=== PATIENT | female | born 1960 | race Caucasian/White ===

== ENCOUNTER 2016-11-06 22:09 | Observation (INO) ==
--- NOTE | 2016-11-06 22:16 | Emergency Department Note ---
Disposition Clinical Impression: Weakness, Elevated troponin I level, Sepsis syndrome UTI (urinary tract infection) Qualifiers: Urinary tract infection type: acute cystitis Hematuria presence: without hematuria Qualified Code(s): N30.00 - Acute cystitis without hematuria Disposition: Admitted As Inpatient Condition: Good General Adult HPI - General Chief complaint: ED Weakness Stated complaint: low blood presure Time Seen by Provider: 11/06/16 22:12 Source: patient, family, EMS Mode of arrival: EMS Limitations: no limitations Nursing Notes Reviewed: Yes Vital Signs Reviewed: Yes - History of Present Illness HPI Narrative: Patient presents by EMS tonight because her "blood pressure dropped". She states her normal blood pressure is about 160/60 and that it "drops every now and then". When her blood pressure was checked at home is reportedly a systolic of 90 and heart rate of 21. Due to this squad was called. She denies any complaints other than she "felt tired", weak and "had no energy". She reports that she felt very fatigued and dry to stand and walk to go to the bathroom. She denies presyncopal complaints. She denies any recent change of medication or diet. She denies any recent fall or injury. She denies chest pain, palpitations or shortness of breath. She denies nausea, vomiting, diarrhea or abdominal pain. She denies any urinary complaints and states that she urinates frequently because of Lasix. She has been on her normal 3 L of oxygen. She states that she is "just feeling yucky". Onset (ago): day(s) (1) Pain Scale: 0 Consistency: constant Improves with: nothing Worsens with: movement, other (Standing and walking) Associated symptoms: Reports: malaise, weakness. Denies: confusion, chest pain , cough, diaphoresis, fever/chills, headaches, loss of appetite, nausea/vomiting , rash, seizure, shortness of breath, syncope Treatments Prior to Arrival: none - Related Data Home Medications Medication Instructions Recorded Confirmed Albuterol Sulfate [Proair Hfa] 1 puff IH DAILY 08/15/15 11/06/16 Fluticasone/Salmeterol [Advair 1 each IH DAILY 08/15/15 11/06/16 100-50 Diskus] Furosemide [Lasix] 80 mg PO DAILY 08/15/15 12/12/15 Gabapentin [Neurontin] 600 mg PO TID 08/15/15 11/06/16 Hydrocodone/Acetaminophen [Vicodin 7.5 mg PO 3-4XD PRN 08/15/15 11/06/16 Es 7.5-300 mg Tablet] Levothyroxine [Synthroid] 50 mcg PO DAILY 08/15/15 Allopurinol [Zyloprim] 300 mg PO DAILY 11/06/16 11/06/16 Cholecalciferol (Vitamin D3) 4,000 unit PO 11/06/16 [Vitamin D3] Umeclidinium Brm/Vilanterol Tr 1 cap IH DAILY 11/06/16 11/06/16 [Anoro Ellipta 62.5-25 Mcg INH] Allergies Allergy/AdvReac Type Severity Reaction Status Date / Time adhesive tape Allergy Rash Verified 11/06/16 22:19 lisinopril AdvReac Cough Verified 11/06/16 22:19 All systems ED: reviewed and negative except as stated. Past Medical History - Past Medical History Attestation: Yes The following information was validated with the patient. Source: patient, nursing notes reviewed Medical history: Reports: arthritis, CHF, COPD, DVT, pulmonary embolus, thyroid disease, other Surgical history: Reports: other (Tonsillectomy, rhinoplasty) Psychiatric history: Reports: anxiety, depression CORPORATE TRAINER history: Reports: no CORPORATE TRAINER history - Social History Smoking Status: Current every day smoker Smokeless Tobacco Status: No Alcohol use: Reports: none Drug use: Reports: none Physical Exam - General Limitations: no limitations General appearance: alert, in no apparent distress - Head Head exam: atraumatic, normocephalic, normal inspection - Eye Eye exam: Present: normal appearance, PERRL, EOMI. Absent: scleral icterus, conjunctival injection - ENT ENT exam: normal exam, normal oropharynx, mucous membranes moist - Neck Neck exam: Present: normal inspection, full ROM, trachea midline - Chest Chest inspection: Present: normal inspection, symmetric chest wall rise - Respiratory Respiratory exam: Present: normal lung sounds bilaterally, wheezes, prolonged expiratory phase. Absent: respiratory distress - Cardiovascular Cardiovascular exam: Present: regular rate, normal rhythm, tachycardia, normal heart sounds - Abdominal Exam Abdominal exam: Present: soft, Non-Tender, normal bowel sounds. Absent: tenderness, distention, guarding, rebound, rigidity - Extremities Exam Extremities exam: Present: normal inspection, full ROM, normal capillary refill , pedal edema (1-2+, chronic). Absent: tenderness, calf tenderness (Left calf and a Coban wrap) - Expanded Lower Extremity Exam Neurovascular/Tendon exam: Present: normal capillary refill. Absent: motor deficit, sensory deficit, tendon deficit Gait: not tested/not observed - Back Exam Back exam: Present: normal inspection, full ROM. Absent: tenderness, vertebral tenderness - Neurological Exam Neurological exam: Present: alert, oriented X3. Absent: motor sensory deficit - Psychiatric Psychiatric exam: Present: normal affect, normal mood - Skin Skin exam: Present: warm, dry, intact, normal color. Absent: diaphoresis, pallor Course Course Narrative: 2214: The patient's presenting heart rate is about 100 and her blood pressure is under 128/84. She is saturating around 89-92% on her 3 L. Given her history we will obtain a slight lab work, EKG and x-ray. If she is maintaining good vital signs had this evaluation is unremarkable, I believe she will be stable for discharge to home. 2229: All lab and evaluation has been discussed with the patient and Dr. Cagle. She has been started on IV fluids, IV Cipro and a baseline lactic acid and blood cultures have been ordered. Given the troponin of 0.06 this has been written for repeat admit patent. If this is increasing I will work on transfer to another facility. If this is decreasing Dr. Cagle is agreeable with continued treatment at this facility. Vital Signs Temperature 99.6 F 11/06/16 22:10 Pulse Rate 101 11/06/16 22:10 Respiratory Rate 26 11/06/16 22:10 Blood Pressure 128/84 11/06/16 22:10 O2 Sat by Pulse Oximetry 88 11/06/16 22:10 Temperature 97.9 F 11/07/16 04:54 Pulse Rate 82 11/07/16 04:54 Respiratory Rate 18 11/07/16 04:54 Blood Pressure 92/53 11/07/16 04:54 O2 Sat by Pulse Oximetry 97 11/07/16 04:54 Oxygen Delivery Oxygen Delivery Nasal Cannula Medical Decision Making - Lab Data Lab results reviewed: Yes I reviewed the patient's lab results. Result diagrams: 11/07/16 05:36 11/06/16 22:34 Lab Results 11/06/16 11/06/16 11/06/16 Range/Units 22:34 22:34 22:34 WBC 24.1 H (4.3-11.1) K/mcL RBC 5.85 H (3.82-4.97) M/mcL Hgb 16.8 H (11.5-15.4) g/dL Hct 52.1 H (35.3-44.9) % MCV 89.1 (83.0-100.0) fL MCH 28.7 (28.0-33.3) pg MCHC 32.2 (31.6-35.5) g/dL RDW 16.2 H (11.5-14.5) % Plt Count 175 (140-400) K/mcL MPV 11.6 (9.4-12.4) fL Seg Neutrophils % 71.0 % Band Neutrophils % 19.0 H (0-4) % Lymphocytes % 5.0 % Monocytes % 5.0 % Neutrophils # 21.7 H (1.6-8.9) K/mcL Lymphocytes # 1.2 (0.6-4.6) K/mcL Monocytes # 1.2 (0.0-1.3) K/mcL Toxic Granulation Present A (Not Present) Toxic Vacuolation Present A (Not Present) Dohle Bodies Present A (Not Present) Platelet Estimate Normal (Normal) Large Platelets Present A (Not Present) Anisocytosis 1+ A (Not Present) VBG Lactic Acid (0.5-2.2) mmol/L Sodium 138 (136-145) mEq/L Potassium 4.3 (3.5-4.5) mEq/L Chloride 103 (98-109) mEq/L Carbon Dioxide 21 (19-29) mEq/L BUN 16 (7-20) mg/dL Creatinine 0.94 (0.57-1.11) mg/dL Est GFR ( Amer) > 60 (> 60) Est GFR (Non-Af Amer) > 60 (> 60) BUN/Creatinine Ratio 17 (6-26) Glucose 111 H (70-99) mg/dL Calculated Osmolality 288 (280-300) Calcium 8.9 (8.6-10.8) mg/dL Troponin I 0.06 H* (0-0.03) ng/mL B-Natriuretic Peptide (0-100) pg/mL Urine Color (Yellow) Urine Clarity (Clear) Urine pH (5.0-8.0) pH Units Ur Specific [place] (1.010-1.025) Urine Protein (Neg-Trace) mg/dL Urine Glucose (UA) (Normal) mg/dL Urine Ketones (Negative) mg/dL Urine Blood (Negative) Urine Nitrite (Negative) Urine Bilirubin (Negative) Urine Urobilinogen (Normal) mg/dL Ur Leukocyte Esterase (Negative) Urine Microscopic RBC (0-3) per hpf Urine Microscopic WBC (0-3) per hpf Ur Squamous Epith Cells (None-Few) per lpf Uric Acid Crystals Amorphous Sediment (Few) Urine Bacteria (None-Few) per hpf Hyaline Casts (None-Few) per lpf Granular Casts (None Seen) per lpf Ur Culture Indicated? (NO) 11/06/16 11/06/16 11/07/16 Range/Units 22:34 22:47 00:00 WBC (4.3-11.1) K/mcL RBC (3.82-4.97) M/mcL Hgb (11.5-15.4) g/dL Hct (35.3-44.9) % MCV (83.0-100.0) fL MCH (28.0-33.3) pg MCHC (31.6-35.5) g/dL RDW (11.5-14.5) % Plt Count (140-400) K/mcL MPV (9.4-12.4) fL Seg Neutrophils % % Band Neutrophils % (0-4) % Lymphocytes % % Monocytes % % Neutrophils # (1.6-8.9) K/mcL Lymphocytes # (0.6-4.6) K/mcL Monocytes # (0.0-1.3) K/mcL Toxic Granulation (Not Present) Toxic Vacuolation (Not Present) Dohle Bodies (Not Present) Platelet Estimate (Normal) Large Platelets (Not Present) Anisocytosis (Not Present) VBG Lactic Acid 3.2 H (0.5-2.2) mmol/L Sodium (136-145) mEq/L Potassium (3.5-4.5) mEq/L Chloride (98-109) mEq/L Carbon Dioxide (19-29) mEq/L BUN (7-20) mg/dL Creatinine (0.57-1.11) mg/dL Est GFR ( Amer) (> 60) Est GFR (Non-Af Amer) (> 60) BUN/Creatinine Ratio (6-26) Glucose (70-99) mg/dL Calculated Osmolality (280-300) Calcium (8.6-10.8) mg/dL Troponin I (0-0.03) ng/mL B-Natriuretic Peptide 235 H (0-100) pg/mL Urine Color Dark Yellow (Yellow) Urine Clarity Cloudy A (Clear) Urine pH 5.0 (5.0-8.0) pH Units Ur Specific [place] 1.025 (1.010-1.025) Urine Protein 30 H (Neg-Trace) mg/dL Urine Glucose (UA) Normal (Normal) mg/dL Urine Ketones 15 H (Negative) mg/dL Urine Blood Negative (Negative) Urine Nitrite Positive A (Negative) Urine Bilirubin Moderate H (Negative) Urine Urobilinogen Normal (Normal) mg/dL Ur Leukocyte Esterase Negative (Negative) Urine Microscopic RBC 0-3 (0-3) per hpf Urine Microscopic WBC 3-5 H (0-3) per hpf Ur Squamous Epith Cells Many H (None-Few) per lpf Uric Acid Crystals Present Amorphous Sediment Moderate H (Few) Urine Bacteria Many H (None-Few) per hpf Hyaline Casts Few (None-Few) per lpf Granular Casts Few H (None Seen) per lpf Ur Culture Indicated? YES A (NO) 11/07/16 Range/Units 00:00 WBC (4.3-11.1) K/mcL RBC (3.82-4.97) M/mcL Hgb (11.5-15.4) g/dL Hct (35.3-44.9) % MCV (83.0-100.0) fL MCH (28.0-33.3) pg MCHC (31.6-35.5) g/dL RDW (11.5-14.5) % Plt Count (140-400) K/mcL MPV (9.4-12.4) fL Seg Neutrophils % % Band Neutrophils % (0-4) % Lymphocytes % % Monocytes % % Neutrophils # (1.6-8.9) K/mcL Lymphocytes # (0.6-4.6) K/mcL Monocytes # (0.0-1.3) K/mcL Toxic Granulation (Not Present) Toxic Vacuolation (Not Present) Dohle Bodies (Not Present) Platelet Estimate (Normal) Large Platelets (Not Present) Anisocytosis (Not Present) VBG Lactic Acid (0.5-2.2) mmol/L Sodium (136-145) mEq/L Potassium (3.5-4.5) mEq/L Chloride (98-109) mEq/L Carbon Dioxide (19-29) mEq/L BUN (7-20) mg/dL Creatinine (0.57-1.11) mg/dL Est GFR ( Amer) (> 60) Est GFR (Non-Af Amer) (> 60) BUN/Creatinine Ratio (6-26) Glucose (70-99) mg/dL Calculated Osmolality (280-300) Calcium (8.6-10.8) mg/dL Troponin I 0.06 H* (0-0.03) ng/mL B-Natriuretic Peptide (0-100) pg/mL Urine Color (Yellow) Urine Clarity (Clear) Urine pH (5.0-8.0) pH Units Ur Specific [place] (1.010-1.025) Urine Protein (Neg-Trace) mg/dL Urine Glucose (UA) (Normal) mg/dL Urine Ketones (Negative) mg/dL Urine Blood (Negative) Urine Nitrite (Negative) Urine Bilirubin (Negative) Urine Urobilinogen (Normal) mg/dL Ur Leukocyte Esterase (Negative) Urine Microscopic RBC (0-3) per hpf Urine Microscopic WBC (0-3) per hpf Ur Squamous Epith Cells (None-Few) per lpf Uric Acid Crystals Amorphous Sediment (Few) Urine Bacteria (None-Few) per hpf Hyaline Casts (None-Few) per lpf Granular Casts (None Seen) per lpf Ur Culture Indicated? (NO) - Radiology Data Radiology results reviewed: Yes I reviewed the patient's radiology results. Single view chest x-ray is performed. This does not demonstrate evidence for infiltrate, effusion, pneumothorax, foreign body or heart failure. The cardiac silhouette is normal. I do not see abnormality to the osseous structures of the chest. This is on my interpretation. Impressions Chest X-Ray 11/06/16 22:17 IMPRESSION: Limited exam. Perihilar patchy opacities could reflect pulmonary edema. D/ / Dameon Garnett MD / Dameon Garnett MD Interpreting Provider: Dameon Garnett MD Critical Care Time Critical Care Time: Yes Total Critical Care Time: 45 Attestation: As this patient did present with signs and symptoms of potential life- threatening illness requiring my urgent intervention, total critical care time in this patient's care has been 45 minutes, not withstanding separately reportable procedures.
[2016-11-06 22:50] LABS: Hematocrit 52.1 % (35.3-44.9); Hemoglobin 16.8 g/dL (11.5-15.4); Mean Corpuscular HGB Conc 32.2 g/dL (31.6-35.5); Mean Corpuscular Hemoglobin 28.7 pg (28.0-33.3); Mean Corpuscular Volume 89.1 fL (83.0-100.0); Mean Platelet Volume 11.6 fL (9.4-12.4); Monocytes # 1.2 K/mcL (0.0-1.3); Platelet Count 175 K/mcL (140-400); Red Blood Count 5.85 M/mcL (3.82-4.97); Red Cell Distribution Width 16.2 % (11.5-14.5)
[2016-11-06 22:55] LABS: Bilirubin,Urine Moderate (Negative); Blood,Urine Negative (Negative); Clarity,Urine Cloudy (Clear); Glucose,Urine (UA) Normal (Normal); Ketones,Urine 15 mg/dL (Negative); Leukocyte Esterase,Urine Negative (Negative); Nitrite,Urine Positive (Negative); Protein,Urine 30 mg/dL (Neg-Trace); Specific Gravity,Urine 1.025 (1.010-1.025); Urobilinogen,Urine Normal (Normal)
[2016-11-06 23:01] LABS: BUN/Creatinine Ratio 17 (6-26); Blood Urea Nitrogen 16 mg/dL (7-20); Calcium 8.9 mg/dL (8.6-10.8); Carbon Dioxide 21 mEq/L (19-29); Chloride 103 mEq/L (98-109); Glucose 111 mg/dL (70-99); Osmolality,Calculated 288 (280-300); Potassium 4.3 mEq/L (3.5-4.5); Sodium 138 mEq/L (136-145); eGFR For African Americans > 60 (> 60); eGFR For Non-African Americans > 60 (> 60)
[2016-11-06 23:03] LABS: Color,Urine Dark Yellow (Yellow)
[2016-11-06 23:05] LABS: Granular Casts,Urine Few per lpf (None Seen); Hyaline Casts,Urine Few per lpf (None-Few)
[2016-11-06 23:06] LABS: Amorphous Sediment,Urine Moderate (Few); RBC,Urine 0-3 per hpf (0-3); Squamous Epithelial Cell,Urine Many per lpf (None-Few)
[2016-11-06 23:07] LABS: Bacteria,Urine Many per hpf (None-Few)
[2016-11-06 23:12] LABS: Uric Acid Crystals,Urine Present
[2016-11-06] MEDS ORDERED: 0.9 % Sodium Chloride 1,000 ML IVC SCH (23:30)
[2016-11-06 23:33] LABS: Lymphocytes # 1.2 K/mcL (0.6-4.6); Neutrophils # 21.7 K/mcL (1.6-8.9); Toxic Granulation Present (Not Present)
[2016-11-06 23:34] LABS: Anisocytosis 1+ (Not Present); Dohle Bodies Present (Not Present); Large Platelets Present (Not Present); Platelet Estimate Normal (Normal)
[2016-11-06 23:36] LABS: Toxic Vacuolation Present (Not Present)
[2016-11-07] MEDS ORDERED: [UNRECOGNIZED DRUG - OTHER] PO PRN (01:47)
[2016-11-07] MEDS ORDERED: HYDROCODONE PO PRN (01:47)
[2016-11-07] MEDS ORDERED: ACETAMINOPHEN PO PRN (01:47)
[2016-11-07] MEDS ORDERED: Naloxone 0.4 MG/ML INJ IVP PRN (01:47)
[2016-11-07] MEDS ORDERED: Ondansetron 4 MG/2 ML VIAL IVP PRN (01:47)
[2016-11-07] MEDS ORDERED: 0.9 % Sodium Chloride 1,000 ML IVC SCH (01:47)
[2016-11-07] MEDS ORDERED: Albuterol 2.5 MG/3 ML NEBULIZER IH PRN (01:47)
[2016-11-07] MEDS ORDERED: MOM Conc 10 ML UD.LIQ PO PRN (01:47)
[2016-11-07] MEDS: Ipratropium/Albuterol Neb 3 ML IH SCH ×2 (04:20→10:35)
[2016-11-07 06:04] LABS: Hematocrit 50.6 % (35.3-44.9); Hemoglobin 16.2 g/dL (11.5-15.4); Mean Corpuscular Hemoglobin 29.1 pg (28.0-33.3); Mean Corpuscular Volume 90.8 fL (83.0-100.0); Mean Platelet Volume 11.8 fL (9.4-12.4); Platelet Count 166 K/mcL (140-400); Red Blood Count 5.57 M/mcL (3.82-4.97); Red Cell Distribution Width 15.9 % (11.5-14.5)
[2016-11-07 06:52] LABS: Lymphocytes # 0.9 K/mcL (0.6-4.6); Monocytes # 1.2 K/mcL (0.0-1.3); Neutrophils # 27.3 K/mcL (1.6-8.9)
[2016-11-07 06:53] LABS: Toxic Granulation Present (Not Present)
[2016-11-07 06:54] LABS: Anisocytosis 1+ (Not Present); Dohle Bodies Present (Not Present); Large Platelets Present (Not Present)
[2016-11-07 06:55] LABS: Platelet Estimate Normal (Normal); Toxic Vacuolation Present (Not Present)
[2016-11-07] MEDS: Gabapentin 300 MG CAPSULE PO SCH ×3 (10:45→21:55)
--- NOTE | 2016-11-07 14:31 | Internal Med History&Physical ---
Date of Encounter: 11/07/16 Time of Encounter: 14:00 Assessment and Plan (1) Cellulitis Current visit: Yes Status: Acute She will be started on IV Ancef and lactobacillus. Qualifiers: Site of cellulitis: extremity Site of cellulitis of extremity: lower extremity Laterality: left Qualified Code(s): L03.116 - Cellulitis of left lower limb (2) Neutrophilic leukocytosis Current visit: No Status: Acute We will start Ancef with lactobacillus and continue IV Cipro which was started in the emergency room for possible UTI. (3) Gout Current visit: Yes Status: Acute We will check uric acid level in a.m. Qualifiers: Gout site: unspecified site Gout etiology: unspecified cause Chronicity: chronic Presence of tophus: without tophus Qualified Code(s): M1A.9XX0 - Chronic gout, unspecified, without tophus (tophi) Internal Medicine - H&P: HPI Chief complaint: Weakness, hypotension Admitted From: Home Plans for Post Hospital Care: Home History of present illness: Ms. Wong is a 56 year old female who came to emergency room stating she felt weak, tired, and sleepy most the day. She took her blood pressure and found it 99/35. She claims her heart rate was 21. She became concerned so called the squad. She was evaluated in emergency room found to have leukocytosis with left shift. She was admitted to [facility] floor for ongoing care needs. She claims she had increased dyspnea but no significant change in her dry cough over the past 24 hours. Her respiratory history is significant for having smoked since age 3 up to 1-1/2 packs per day. She had PFTs in the past and was told she had COPD. She wears oxygen at bedtime and when necessary during the daytime. She has KB and wears BiPAP at bedtime. Past Med Surg Social Fam HX - Past Medical History Medical history: arthritis, CHF, COPD, DVT, pulmonary embolus, thyroid disease, other Psychiatric history: anxiety, depression - Past Surgical History Surgical History: other (Tonsillectomy, rhinoplasty) - Social History Smoking Status: Current every day smoker Packs per day: 0.5 Smokeless Tobacco Status: No Alcohol use: none Drug use: none Internal Medicine - H&P: Meds Albuterol Sulfate [Proair Hfa] 1 puff IH DAILY 08/15/15 [History] Fluticasone/Salmeterol [Advair 100-50 Diskus] 1 each IH DAILY 08/15/15 [History] Furosemide [Lasix] 80 mg PO DAILY 08/15/15 [History] Gabapentin [Neurontin] 600 mg PO TID 08/15/15 [History] Hydrocodone/Acetaminophen [Vicodin Es 7.5-300 mg Tablet] 7.5 mg PO 3-4XD PRN [History] Levothyroxine [Synthroid] 50 mcg PO DAILY 08/15/15 [History] Allopurinol [Zyloprim] 300 mg PO DAILY 11/06/16 [History] Cholecalciferol (Vitamin D3) [Vitamin D3] 4,000 unit PO 11/06/16 [History] Umeclidinium Brm/Vilanterol Tr [Anoro Ellipta 62.5-25 Mcg INH] 1 cap IH DAILY [History] Allergies adhesive tape Allergy (Verified 11/06/16 22:19) Rash lisinopril Adverse Reaction (Verified 11/06/16 22:19) Cough All Systems PM: A 10-system review of systems was performed and is negative for pertinent findings except as documented above in the HPI. Review of systems: Gen.: Her weight has increased from 136.078 kg at the August 2013 hospitalization to present weight of 157.669 kg. Cardiovascular: She has hypertension but denies VA heart failure or angina. She had pulmonary embolism February 2013 and was on Xarelto for several months. Respiratory: As per history of present illness GI: She denies disorders of her liver gallbladder or exocrine pancreas. : No history of hematuria dysuria or kidney stones. Neurologic: She denies large distribution strokes or seizures. Endocrine: She has hypothyroidism but no known diabetes or hyperlipidemia Hematology/oncology: She denies blood disorders cancers or anemia. Psychiatric: She denies anxiety depression or other mental health issues Musk skeletal: She has DJD and gout but no known osteoporosis. - Constitutional Vitals: Temp Pulse Resp BP Pulse Ox 98.8 F 94 18 135/64 93 11/07/16 11:15 11/07/16 11:15 11/07/16 11:15 11/07/16 11:15 11/07/16 11:15 Exam: Gen.: She is a well-developed morbidly obese female lying in bed who appears dyspneic at rest HEENT: Head is atraumatic and normocephalic. Eyes: EOMI. There is no scleral icterus. Mouth: Mucosa is moist. Neck: Supple and nontender. There is no thyromegaly or adenopathy noted. Heart heart: Regular without murmurs gallops or ectopics. Lungs: She has diminished breath sounds diffusely with few scattered rhonchi heard. Abdomen: She has a massive pannus which extends down between her knees with her lying in bed. Her abdomen is nontender to palpation. Extremities: The left leg shows significant erythema from the mid thigh to the toes. It is warmer to touch than the right leg which is normal. Dorsalis pedis and posttibial pulses are 1-2 over 2 bilaterally. There is a shallow healing ulcerative area on the left lower lateral calf area. She has minimal DJD changes of her hands. Neurologic: Mental status: She is talkative and seems to reliable historian. Cranial nerves: Smile is symmetric. Forehead wrinkles bilaterally. Tongue protrudes midline. EOMI. Motor: There is no pronator drift. Cerebellar: Finger to nose is intact bilaterally. Skin: She has erythema of the right leg as mentioned. Skin is warm and dry otherwise. Internal Med - H&P Results - Labs CBC & Chem 7: 11/07/16 05:36 11/06/16 22:34 Labs: Short CBC 11/07/16 Range/Units 05:36 WBC 29.3 H (4.3-11.1) K/mcL Hgb 16.2 H (11.5-15.4) g/dL Hct 50.6 H (35.3-44.9) % Plt Count 166 (140-400) K/mcL Neutrophils # 27.3 H (1.6-8.9) K/mcL Cardiac Enzymes 11/07/16 11/07/16 Range/Units 05:36 11:55 Troponin I 0.04 H* 0.04 H* (0-0.03) ng/mL
[2016-11-07] MEDS: *HR* HYDROcodone/Acet 7.5/325 mg TABLET PO SCH ×2 (15:14→21:56)
[2016-11-07] MEDS: ceFAZolin 2,000 MG in D5% in Water 100 ML IVPB SCH (18:20)
[2016-11-07] MEDS: Lactobacillus 1 EACH CAP.SPRINK PO SCH (21:55)
[2016-11-08] MEDS: *HR* HYDROcodone/Acet 7.5/325 mg TABLET PO SCH ×2 (04:37→09:58)
[2016-11-08] MEDS: ceFAZolin 2,000 MG in D5% in Water 100 ML IVPB SCH ×2 (04:37→11:36)
[2016-11-08 06:14] LABS: Hematocrit 47.4 % (35.3-44.9); Mean Corpuscular HGB Conc 31.6 g/dL (31.6-35.5); Mean Corpuscular Hemoglobin 28.7 pg (28.0-33.3); Mean Corpuscular Volume 90.6 fL (83.0-100.0); Mean Platelet Volume 11.8 fL (9.4-12.4); Platelet Count 122 K/mcL (140-400); Red Blood Count 5.23 M/mcL (3.82-4.97); Red Cell Distribution Width 16.1 % (11.5-14.5)
[2016-11-08 06:36] LABS: Alanine Aminotransferase 14 Units/L (0-55); Albumin 2.7 g/dL (3.5-5.0); Albumin/Globulin Ratio 0.7 (1.1-2.2); Alkaline Phosphatase 71 Units/L (38-126); Aspartate Amino Transferase 25 Units/L (5-34); BUN/Creatinine Ratio 18 (6-26); Bilirubin,Total 0.9 mg/dL (0.2-1.2); Blood Urea Nitrogen 15 mg/dL (7-20); Calcium 8.9 mg/dL (8.6-10.8); Carbon Dioxide 26 mEq/L (19-29); Chloride 98 mEq/L (98-109); Globulin 4.1 g/dL (2.4-3.5); Glucose 118 mg/dL (70-99); Osmolality,Calculated 284 (280-300); Sodium 136 mEq/L (136-145); Total Protein 6.8 g/dL (6.0-8.3); Uric Acid 5.7 mg/dL (2.6-6.0); eGFR For African Americans > 60 (> 60); eGFR For Non-African Americans > 60 (> 60)
[2016-11-08 06:48] LABS: Neutrophils # 13.1 K/mcL (1.6-8.9)
[2016-11-08 06:49] LABS: Lymphocytes # 1.2 K/mcL (0.6-4.6); Monocytes # 0.3 K/mcL (0.0-1.3)
[2016-11-08 06:52] LABS: Platelet Estimate Slight Decrease (Normal); Toxic Granulation Present (Not Present)
[2016-11-08] MEDS ORDERED: Ammonium Lactate 30 APPL/225 GM BOTTLE TP SCH (09:00)
[2016-11-08 09:52] VITALS: BP 144/68
[2016-11-08] MEDS: Gabapentin 300 MG CAPSULE PO SCH (09:58)
[2016-11-08] MEDS: Lactobacillus 1 EACH CAP.SPRINK PO SCH (09:58)
--- NOTE | 2016-11-08 09:59 | Discharge Summary ---
Date of Encounter: 11/08/16 Time of Encounter: 09:50 - Discharge Diagnosis (1) Cellulitis Priority: Primary Status: Acute Qualifiers: Site of cellulitis: extremity Site of cellulitis of extremity: lower extremity Laterality: left Qualified Code(s): L03.116 - Cellulitis of left lower limb (2) Neutrophilic leukocytosis Priority: Secondary Status: Acute (3) Gout Priority: Secondary Status: Acute Qualifiers: Gout site: unspecified site Gout etiology: unspecified cause Chronicity: chronic Presence of tophus: without tophus Qualified Code(s): M1A.9XX0 - Chronic gout, unspecified, without tophus (tophi) - Discharge Medications Prescriptions: cephALEXin [Keflex] 500 mg PO QID #28 capsule Lactobacillus [Culturelle] 1 each PO BID #14 [email or web address] Home Medications: Albuterol Sulfate [Proair Hfa] 1 puff IH DAILY 08/15/15 [History] Fluticasone/Salmeterol [Advair 100-50 Diskus] 1 each IH DAILY 08/15/15 [History] Furosemide [Lasix] 80 mg PO DAILY 08/15/15 [History] Gabapentin [Neurontin] 600 mg PO TID 08/15/15 [History] Hydrocodone/Acetaminophen [Vicodin Es 7.5-300 mg Tablet] 7.5 mg PO 3-4XD PRN [History] Levothyroxine [Synthroid] 50 mcg PO DAILY 08/15/15 [History] Allopurinol [Zyloprim] 300 mg PO DAILY 11/06/16 [History] Cholecalciferol (Vitamin D3) [Vitamin D3] 4,000 unit PO 11/06/16 [History] Umeclidinium Brm/Vilanterol Tr [Anoro Ellipta 62.5-25 Mcg INH] 1 cap IH DAILY [History] Lactobacillus [Culturelle] 1 each PO BID #14 cap.[email or web address] 11/08/16 [Rx] cephALEXin [Keflex] 500 mg PO QID #28 capsule 11/08/16 [Rx] Allergies/Adverse Reactions: Allergies adhesive tape Allergy (Verified 11/06/16 22:19) Rash lisinopril Adverse Reaction (Verified 11/06/16 22:19) Cough Date of admission: 11/07/16 01:36 Primary care physician: Kierra Tan CNP Consults: 11/07/16 04:12 Consult to Digital Marketing Apprentice [CONS] Routine Reason for SW Consult: May require ECF placement or more home health to ensure basic needs are being met - Patient Status Disposition: Home Health Service Condition: Good Overall status at discharge: patient is progressing back to baseline - Discharge Instructions Follow Up With: Kierra Tan CNP [Advanced Practice Nurse] - 1 week - Diet and Activity Activity: resume usual activities as tolerated Diet: advance to your usual diet Hospital course: Ms. Wong is a 56 year old female who came to emergency room stating she felt weak, tired, and sleepy most the day. She took her blood pressure and found it 99/35. She claims her heart rate was 21. She became concerned so called the squad. She was evaluated in emergency room found to have leukocytosis with left shift. She was admitted to [facility] floor for ongoing care needs. Initial orders were written by the emergency room physician. I saw her on November 07 and performed the history and physical. She was given Cipro for possible UTI through the emergency room. When I saw her I started her on IV Ancef with lactobacillus for the cellulitis. On November 08 the cellulitis showed visible improvement. Her WBC had decreased to 14.5 with slight improvement in the left shift. Urine culture showed no growth. She felt improved and stated she wanted to be discharged home. I offered her remaining in the hospital with IV antibiotics but she chose to go home. She will continue with oral Keflex and lactobacillus for 7 days. She will follow with her PCP within one week. - Time Spent with Patient Total time spent providing and/or coordinating discharge services: - Constitutional Vitals: Temp Pulse Resp BP Pulse Ox 99.3 F 86 20 144/68 94 11/08/16 06:46 11/08/16 09:51 11/08/16 06:46 11/08/16 09:51 11/08/16 09:51
--- NOTE | 2016-11-08 10:05 | Physician Discharge Referral ---
Home Health/Hosp Referral Info Transfer to: Home Health Attending Provider: Gurjit Provider in Charge Post Discharge: PCP (Kierra Tan CNP) - Diagnosis (1) Cellulitis Priority: Primary Status: Acute (2) Neutrophilic leukocytosis Priority: Secondary Status: Acute (3) Gout Priority: Secondary Status: Acute - Respiratory Orders Oxygen / L per min (As at home) Smoking Cessation: Smoking cessation has been advised. For more information, call the [employer] Tobacco Quit Line at 0-042-VHOX-NOW. - Dressing/Wound Care Site: Monitor left leg cellulitis and left lateral calf ulcer. - Diet/Nutrition Diet/Nutrition Orders: Regular - Activity Activity Orders: Ambulate - Services Needed Following services are medically necessary services: Nursing, Home Health Aide, Physical Therapy, Occupational Therapy - Transfer Medications Prescriptions: cephALEXin [Keflex] 500 mg PO QID #28 capsule Lactobacillus [Culturelle] 1 each PO BID #14 cap.sprink Home Medications: Albuterol Sulfate [Proair Hfa] 1 puff IH DAILY 08/15/15 [History] Fluticasone/Salmeterol [Advair 100-50 Diskus] 1 each IH DAILY 08/15/15 [History] Furosemide [Lasix] 80 mg PO DAILY 08/15/15 [History] Gabapentin [Neurontin] 600 mg PO TID 08/15/15 [History] Hydrocodone/Acetaminophen [Vicodin Es 7.5-300 mg Tablet] 7.5 mg PO 3-4XD PRN [History] Levothyroxine [Synthroid] 50 mcg PO DAILY 08/15/15 [History] Allopurinol [Zyloprim] 300 mg PO DAILY 11/06/16 [History] Cholecalciferol (Vitamin D3) [Vitamin D3] 4,000 unit PO 11/06/16 [History] Umeclidinium Brm/Vilanterol Tr [Anoro Ellipta 62.5-25 Mcg INH] 1 cap IH DAILY [History] Lactobacillus [Culturelle] 1 each PO BID #14 cap.sprink 11/08/16 [Rx] cephALEXin [Keflex] 500 mg PO QID #28 capsule 11/08/16 [Rx] Allergies/Adverse Reactions: Allergies adhesive tape Allergy (Verified 11/06/16 22:19) Rash lisinopril Adverse Reaction (Verified 11/06/16 22:19) Cough Certification: Further, I certify that my clinical findings support that this patient is homebound (i.e. absences from home require considerable and taxing effort and are for medical reasons or shinto services or infrequently or short duration when for other reasons) because: Homebound Reason: Leaving home requires considerable and taxing effort due to condition (Morbid obesity with impaired walking ability.) Attestation: My signature below is to certify that this patient is under my care and that I, or nurse practitioner, or a physician's architectural administrative assistant working with me, has a face-to -face encounter with this patient.
--- NOTE | 2016-11-08 16:47 | Electrocardiograph Report ---
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
== END 2016-11-08 12:50 | disposition home health service (06) ==
LOC: EMEROOPIK 22:09 → INPPIK 22:09
PROVIDERS: ADMIT Internal Medicine; ATTEND Internal Medicine

== ENCOUNTER 2017-07-15 09:32 | Observation (INO) ==
--- NOTE | 2017-07-15 09:38 | Emergency Department Note ---
Disposition Clinical Impression: Atrial flutter with rapid ventricular response Dyspnea Qualifiers: Dyspnea type: shortness of breath Qualified Code(s): R06.02 - Shortness of breath Pulmonary edema Qualifiers: Chronicity: acute Qualified Code(s): J81.0 - Acute pulmonary edema Disposition: Admitted As Inpatient Condition: Fair Referrals: NONE,PCP [Non-Partnered Physician] - Forms: ED Satisfaction Letter Time of Disposition: 10:21 SOB HPI - General Chief Complaint: ED Shortness of Breath/Dyspnea Stated Complaint: MIC past few days Time Seen by Provider: 07/15/17 09:34 Source: patient, EMS Mode of arrival: EMS Limitations: no limitations Nursing Notes Reviewed: Yes Vital Signs Reviewed: Yes - History of Present Illness Patient reports that she has had increased shortness of breath over the course of about 2 weeks. She relates she is supposed to be on Lasix about 80 mg daily but she thinks she's been taking it about every other day. She has not noted increased swelling from this but notes her breathing gets much worse if she lays flat. She states this is typical for her is much worse now. She denies associated cough, fevers or chills. She states she gets occasional sharp chest pains that last one to 2 minutes. She cannot identify anything that makes these better or worse. She states in the last 3 weeks she has had 1-2 of these pains a week. She denies any diaphoresis, nausea or any pain to her jaw, back or arms. She denies any abdominal pain or complaints. She denies any increase in lower extremity swelling, edema or pain. She relates she has had a normal Unna boots on for leg swelling. She denies any ill exposures or change of medicines. She states she has visiting nurses and her heart rate has been running 140-150 for the last 2-3 weeks. She is on 3 L of oxygen at home chronically. Pt Subjective Complaint: shortness of breath Onset (ago): week(s) Severity: moderate, severe Consistency/Duration: gradually worsening Improves with: rest, upright position Worsens with: lying flat, exertion Known history of: congestive heart failure, PE, DVT Associated symptoms: Reports: orthopnea. Denies: chest pain, pain with inspiration, fever, cough, wheezing, sputum production, lower extremity pain, polyuria, polydipsia, parasthesias, palpitations, hemoptysis, diaphoresis, nausea/vomiting, syncope, abdominal pain, rash Treatment prior to arrival: oxygen Cough present: No - Related Data Home oxygen amount: 3 liters Home Medications Medication Instructions Recorded Confirmed Albuterol Sulfate [Proair Hfa] 1 puff IH DAILY 08/15/15 11/06/16 Fluticasone/Salmeterol [Advair 1 each IH DAILY 08/15/15 11/06/16 100-50 Diskus] Furosemide [Lasix] 80 mg PO DAILY 08/15/15 12/12/15 Gabapentin [Neurontin] 600 mg PO TID 08/15/15 11/06/16 Hydrocodone/Acetaminophen [Vicodin 7.5 mg PO 3-4XD PRN 08/15/15 11/06/16 Es 7.5-300 mg Tablet] Levothyroxine [Synthroid] 50 mcg PO DAILY 08/15/15 Allopurinol [Zyloprim] 300 mg PO DAILY 11/06/16 11/06/16 Cholecalciferol (Vitamin D3) 4,000 unit PO 11/06/16 [Vitamin D3] Umeclidinium Brm/Vilanterol Tr 1 cap IH DAILY 11/06/16 11/06/16 [Anoro Ellipta 62.5-25 Mcg INH] Previous Rx's Medication Instructions Recorded Lactobacillus [Culturelle] 1 each PO BID #14 cap.sprink 11/08/16 cephALEXin [Keflex] 500 mg PO QID #28 capsule 11/08/16 Allergies Allergy/AdvReac Type Severity Reaction Status Date / Time adhesive tape Allergy Rash Verified 11/06/16 22:19 lisinopril AdvReac Cough Verified 11/06/16 22:19 All systems ED: reviewed and negative except as stated. Past Medical History - Past Medical History Attestation: Yes The following information was validated with the patient. Source: patient, old records reviewed, nursing notes reviewed Medical history: Reports: arthritis (Gout), CHF, COPD, DVT (Off Xarelto), pulmonary embolus (2012), thyroid disease, other (Morbid obesity, obstructive sleep apnea). Denies: coronary artery disease, CVA, hyperlipidemia, hypertension, seizures Surgical history: Reports: other (Tonsillectomy, rhinoplasty) Psychiatric history: Reports: anxiety, depression BOTTOM SAW OPERATOR history: Reports: no BOTTOM SAW OPERATOR history - Social History Smoking Status: Current every day smoker Smokeless Tobacco Status: No Alcohol use: Reports: none Drug use: Reports: none Physical Exam - General Limitations: no limitations General appearance: alert, in no apparent distress - Head Head exam: atraumatic, normocephalic, normal inspection - Eye Eye exam: Present: normal appearance, PERRL, EOMI. Absent: conjunctival injection - ENT ENT exam: normal exam, normal oropharynx, mucous membranes moist - Neck Neck exam: Present: normal inspection, full ROM, trachea midline - Chest Chest inspection: Present: normal inspection, symmetric chest wall rise - Respiratory Respiratory exam: Present: normal lung sounds bilaterally. Absent: respiratory distress, wheezes, prolonged expiratory phase - Cardiovascular Cardiovascular exam: Present: regular rate, normal rhythm, tachycardia, normal heart sounds - Abdominal Exam Abdominal exam: Present: soft, Non-Tender, normal bowel sounds. Absent: tenderness, distention, guarding, rebound, rigidity - Extremities Exam Extremities exam: Present: normal inspection, full ROM, normal capillary refill , other (Patient has on bilateral Unna boots and does not have pitting edema or erythema.). Absent: tenderness, pedal edema, calf tenderness - Expanded Lower Extremity Exam Neurovascular/Tendon exam: Present: normal capillary refill. Absent: motor deficit, sensory deficit, tendon deficit Gait: negative: not tested/not observed - Neurological Exam Neurological exam: Present: alert, oriented X3 - Psychiatric Psychiatric exam: Present: normal affect, normal mood - Skin Skin exam: Present: warm, dry, intact, normal color, other (Multiple scars and scabs on the patient's chest and abdomen. She states these are from her cat and that she "is a picker feeder". There is no evidence for secondary inflammation or infection.) Course Course Narrative: 09: The patient appears to have atrial flutter with rapid ventricular response. She has been written receive a dose of intravenous furosemide. She has requested a Schultz catheter be placed as she will not get off her bed to bedside commode nor go on a bedpan. Given the patient's size and difficulty in giving other bedside perineal cafe, a Schultz catheter has been ordered at the patient's request. I have reviewed the patient's old record I do not see a previous history of atrial fibrillation or atrial flutter recorded. 1000: The patient has had a previous history of DVT and PE. She states that she is no longer taking anticoagulants and that they were stopped by her primary care provider. Given her tachycardia and dyspnea I have written for a d-dimer and a dose of Lovenox. Given that her primary rhythm appears to be atrial flutter with a rapid ventricular response, she has also been written to receive a single dose of IV Cardizem. 1015: The patient has demonstrated a 2-1 block with the Cardizem with a resultant heart rate of 100. I have contacted Dr. Cagle on the inpatient floor to discuss her potential continued inpatient evaluation. He advises that he would be able to coordinate her care at this facility provided her chemistries do not necessitate her transfer. He does recommend that she be given Cardizem 120 mg orally and, because of the patient's weight, a loading dose of 0.5 mg digoxin IV. These orders have been placed while we await the return of the remainder of her laboratory studies. 1030: The patient's d-dimer is low at this time. Given her dysrhythmia she will be continued on Lovenox at this time. Care has been coordinated to the floor. Coworkers obtained. Patient currently has a heart rate of 98, blood pressure 116 /62 and a saturation of 96% on supplemental oxygen. The patient is aware of the inpatient plan and has contacted her sister by telephone to advise of her impending admission. Vital Signs Temperature 99.1 F 07/15/17 09:35 Pulse Rate 140 07/15/17 09:35 Respiratory Rate 23 07/15/17 09:35 Blood Pressure 130/85 07/15/17 09:35 O2 Sat by Pulse Oximetry 96 07/15/17 09:35 Temperature 99.1 F 07/15/17 09:35 Pulse Rate 107 07/15/17 10:22 Respiratory Rate 22 07/15/17 10:22 Blood Pressure 130/64 07/15/17 10:22 O2 Sat by Pulse Oximetry 93 07/15/17 10:22 Oxygen Delivery Oxygen Delivery Nasal Cannula Shortness of Breath/Dyspnea - Differential Diagnosis Likely: acute exacerbation of chronic obstructive airways disease, congestive heart failure, pneumonia, pulmonary embolism, arrhythmia - Medical Records Medical records reviewed: Yes I reviewed the patient's medical records. - Lab Data Lab results reviewed: Yes I reviewed the patient's lab results. Result diagrams: 07/15/17 09:51 07/15/17 09:51 Lab Results 07/15/17 07/15/17 07/15/17 Range/Units 09:51 09:51 09:51 WBC 10.0 (4.3-11.1) K/mcL RBC 5.85 H (3.82-4.97) M/mcL Hgb 16.3 H (11.5-15.4) g/dL Hct 52.5 H (35.3-44.9) % MCV 89.7 (83.0-100.0) fL MCH 27.9 L (28.0-33.3) pg MCHC 31.0 L (31.6-35.5) g/dL RDW 17.1 H (11.5-14.5) % Plt Count 142 (140-400) K/mcL MPV 11.9 (9.4-12.4) fL Immature Gran % 0.4 (0-4) % Seg Neutrophils % 79.2 % Lymphocytes % 12.9 % Monocytes % 6.7 % Eosinophils % 0.4 % Basophils % 0.4 % Neutrophils # 7.9 (1.6-8.9) K/mcL Lymphocytes # 1.3 (0.6-4.6) K/mcL Monocytes # 0.7 (0.0-1.3) K/mcL Eosinophils # 0.0 (0.0-0.6) K/mcL Basophils # 0.0 (0.0-0.2) K/mcL PT 13.2 H (9.4-12.1) Seconds INR 1.2 APTT 35.3 (26.0-36.0) Seconds D-Dimer (0-500) ng/mLFEU Sodium 139 (136-145) mEq/L Potassium 3.7 (3.5-5.1) mEq/L Chloride 99 (98-107) mEq/L Carbon Dioxide 32 H (23-29) mEq/L BUN 7 (6-20) mg/dL Creatinine 0.67 (0.60-1.20) mg/dL Est GFR ( Amer) > 60 (> 60) Est GFR (Non-Af Amer) > 60 (> 60) BUN/Creatinine Ratio 10 (6-26) Glucose 124 H (70-105) mg/dL Calculated Osmolality 287 (280-300) Lactic Acid (0.5-2.2) mmol/L Calcium 9.1 (8.6-10.3) mg/dL Total Bilirubin 1.2 H (0.3-1.0) mg/dL Direct Bilirubin 0.5 H (0.0-0.2) mg/dL Indirect Bilirubin 0.7 (0.0-1.2) mg/dL AST 13 (13-39) Units/L ALT 8 (7-52) Units/L Alkaline Phosphatase 71 (34-104) Units/L Troponin I (< 0.04) ng/mL B-Natriuretic Peptide (Less than 100) pg/mL Serum Total Protein 7.4 (6.4-8.9) g/dL Albumin 3.7 (3.5-5.7) g/dL Globulin 3.7 H (2.4-3.5) g/dL Albumin/Globulin Ratio 1.0 L (1.1-2.2) 07/15/17 07/15/17 07/15/17 Range/Units 09:51 09:51 09:51 WBC (4.3-11.1) K/mcL RBC (3.82-4.97) M/mcL Hgb (11.5-15.4) g/dL Hct (35.3-44.9) % MCV (83.0-100.0) fL MCH (28.0-33.3) pg MCHC (31.6-35.5) g/dL RDW (11.5-14.5) % Plt Count (140-400) K/mcL MPV (9.4-12.4) fL Immature Gran % (0-4) % Seg Neutrophils % % Lymphocytes % % Monocytes % % Eosinophils % % Basophils % % Neutrophils # (1.6-8.9) K/mcL Lymphocytes # (0.6-4.6) K/mcL Monocytes # (0.0-1.3) K/mcL Eosinophils # (0.0-0.6) K/mcL Basophils # (0.0-0.2) K/mcL PT (9.4-12.1) Seconds INR APTT (26.0-36.0) Seconds D-Dimer (0-500) ng/mLFEU Sodium (136-145) mEq/L Potassium (3.5-5.1) mEq/L Chloride (98-107) mEq/L Carbon Dioxide (23-29) mEq/L BUN (6-20) mg/dL Creatinine (0.60-1.20) mg/dL Est GFR ( Amer) (> 60) Est GFR (Non-Af Amer) (> 60) BUN/Creatinine Ratio (6-26) Glucose (70-105) mg/dL Calculated Osmolality (280-300) Lactic Acid 1.6 (0.5-2.2) mmol/L Calcium (8.6-10.3) mg/dL Total Bilirubin (0.3-1.0) mg/dL Direct Bilirubin (0.0-0.2) mg/dL Indirect Bilirubin (0.0-1.2) mg/dL AST (13-39) Units/L ALT (7-52) Units/L Alkaline Phosphatase (34-104) Units/L Troponin I < 0.03 (< 0.04) ng/mL B-Natriuretic Peptide 120 H (Less than 100) pg/mL Serum Total Protein (6.4-8.9) g/dL Albumin (3.5-5.7) g/dL Globulin (2.4-3.5) g/dL Albumin/Globulin Ratio (1.1-2.2) 07/15/17 Range/Units 09:51 WBC (4.3-11.1) K/mcL RBC (3.82-4.97) M/mcL Hgb (11.5-15.4) g/dL Hct (35.3-44.9) % MCV (83.0-100.0) fL MCH (28.0-33.3) pg MCHC (31.6-35.5) g/dL RDW (11.5-14.5) % Plt Count (140-400) K/mcL MPV (9.4-12.4) fL Immature Gran % (0-4) % Seg Neutrophils % % Lymphocytes % % Monocytes % % Eosinophils % % Basophils % % Neutrophils # (1.6-8.9) K/mcL Lymphocytes # (0.6-4.6) K/mcL Monocytes # (0.0-1.3) K/mcL Eosinophils # (0.0-0.6) K/mcL Basophils # (0.0-0.2) K/mcL PT (9.4-12.1) Seconds INR APTT (26.0-36.0) Seconds D-Dimer 382 (0-500) ng/mLFEU Sodium (136-145) mEq/L Potassium (3.5-5.1) mEq/L Chloride (98-107) mEq/L Carbon Dioxide (23-29) mEq/L BUN (6-20) mg/dL Creatinine (0.60-1.20) mg/dL Est GFR ( Amer) (> 60) Est GFR (Non-Af Amer) (> 60) BUN/Creatinine Ratio (6-26) Glucose (70-105) mg/dL Calculated Osmolality (280-300) Lactic Acid (0.5-2.2) mmol/L Calcium (8.6-10.3) mg/dL Total Bilirubin (0.3-1.0) mg/dL Direct Bilirubin (0.0-0.2) mg/dL Indirect Bilirubin (0.0-1.2) mg/dL AST (13-39) Units/L ALT (7-52) Units/L Alkaline Phosphatase (34-104) Units/L Troponin I (< 0.04) ng/mL B-Natriuretic Peptide (Less than 100) pg/mL Serum Total Protein (6.4-8.9) g/dL Albumin (3.5-5.7) g/dL Globulin (2.4-3.5) g/dL Albumin/Globulin Ratio (1.1-2.2) - Radiology Data Radiology results reviewed: Yes I reviewed the patient's radiology results. Single view chest x-ray is performed. This is somewhat limited by the patient's body habitus. Imaging demonstrates a mild increase interstitial markings without overt failure, focal infiltrates, effusion or pneumothorax. Cardiac silhouette appears to be mildly enlarged. This is on my interpretation. Impressions Chest X-Ray 07/15/17 09:39 IMPRESSION: Cardiomegaly with pulmonary vascular congestion. No evidence of pulmonary edema or focal infiltrate D/ / Kee Branch MD / Kee Branch MD Interpreting Provider: Kee Branch MD - EKG Data EKG attestation: Yes I reviewed and interpreted this EKG. EKG shows normal: Reports: axis, intervals, ST-T waves Rate: Reports: tachycardia (141) Rhythm: Reports: A. flutter QRS morphology: Reports: poor R-wave progression Interpretation: Reports: no acute changes, other (Atrial flutter with rapid ventricular response.) Critical Care Time Critical Care Time: Yes Total Critical Care Time: 50 Attestation: As this patient did present with signs and symptoms of potential life- threatening illness requiring my urgent intervention, total critical care time in this patient's care has been 50 minutes, not withstanding separately reportable procedures.
[2017-07-15] MEDS ORDERED: Furosemide 40 MG/4 ML VIAL IVP ONE (09:39)
[2017-07-15 10:00] LABS: Basophils % 0.4 %; Eosinophils % 0.4 %; Hematocrit 52.5 % (35.3-44.9); Hemoglobin 16.3 g/dL (11.5-15.4); Immature Granulocytes % 0.4 % (0-4); Lymphocytes # 1.3 K/mcL (0.6-4.6); Lymphocytes % 12.9 %; Mean Corpuscular Hemoglobin 27.9 pg (28.0-33.3); Mean Corpuscular Volume 89.7 fL (83.0-100.0); Mean Platelet Volume 11.9 fL (9.4-12.4); Monocytes # 0.7 K/mcL (0.0-1.3); Monocytes % 6.7 %; Neutrophils # 7.9 K/mcL (1.6-8.9); Platelet Count 142 K/mcL (140-400); Red Blood Count 5.85 M/mcL (3.82-4.97); Red Cell Distribution Width 17.1 % (11.5-14.5); Segmented Neutrophils % 79.2 %
[2017-07-15] MEDS ORDERED: *HR* Enoxaparin 150 MG/ML SYRINGE SQ STA (10:00)
[2017-07-15 10:06] LABS: INR 1.2; Prothrombin Time 13.2 Seconds (9.4-12.1)
[2017-07-15 10:08] LABS: Activated Partial Thrombo Time 35.3 Seconds (26.0-36.0)
[2017-07-15] MEDS ORDERED: *HR* Digoxin 0.5 MG/2 ML AMPUL IVP ONE (10:13)
[2017-07-15 10:14] LABS: Alanine Aminotransferase 8 Units/L (7-52); Albumin 3.7 g/dL (3.5-5.7); Alkaline Phosphatase 71 Units/L (34-104); Aspartate Amino Transferase 13 Units/L (13-39); BUN/Creatinine Ratio 10 (6-26); Bilirubin,Direct 0.5 mg/dL (0.0-0.2); Bilirubin,Indirect 0.7 mg/dL (0.0-1.2); Bilirubin,Total 1.2 mg/dL (0.3-1.0); Blood Urea Nitrogen 7 mg/dL (6-20); Calcium 9.1 mg/dL (8.6-10.3); Carbon Dioxide 32 mEq/L (23-29); Chloride 99 mEq/L (98-107); Globulin 3.7 g/dL (2.4-3.5); Glucose 124 mg/dL (70-105); Osmolality,Calculated 287 (280-300); Potassium 3.7 mEq/L (3.5-5.1); Sodium 139 mEq/L (136-145); Total Protein 7.4 g/dL (6.4-8.9); eGFR For Non-African Americans > 60 (> 60)
[2017-07-15] MEDS ORDERED: Diltiazem CD (24hr) 120 MG CAPSULE PO ONE (10:14)
[2017-07-15] MEDS ORDERED: Naloxone 0.4 MG/ML INJ IVP PRN (11:20)
--- NOTE | 2017-07-15 12:59 | Electrocardiograph Report ---
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
--- NOTE | 2017-07-15 15:58 | Internal Med History&Physical ---
Date of Encounter: 07/15/17 Time of Encounter: 15:35 Assessment and Plan (1) Atrial flutter with rapid ventricular response Current visit: Yes Status: Acute She was given Cardizem and started on Lanoxin in emergency room. Her rate has decreased. She will be given Xarelto for CVA prophylaxis. (2) Dyspnea Current visit: Yes Status: Acute Suspect multifactorial etiology including AF with RVR and underlying COPD. Qualifiers: Dyspnea type: shortness of breath Qualified Code(s): R06.02 - Shortness of breath; R06.00 - Dyspnea, unspecified; R06.01 - Orthopnea Internal Medicine - H&P: HPI Chief complaint: Dyspnea, AF with RVR Admitted From: Emergency Dept Plans for Post Hospital Care: Home History of present illness: Ms. Wong is a 57 year old female who came to emergency room complaining of increasing dyspnea over the past 2 weeks. There was no significant cough. She has had periodic chest pain that she describes as occasionally a dull ache and occasionally as sharp. He was evaluated in emergency room and found to have atrial flutter with RVR. She was admitted to [facility] floor for ongoing care needs. She denies previous diagnosis of AF. She had pulmonary embolus in February 2013 and was on Xarelto for several months but has not been on anticoagulation since then. She has history of hypertension but denies [place] heart failure or angina. Past Med Surg Social Fam HX - Past Medical History Medical history: arthritis (Gout), CHF, COPD, DVT (Off Xarelto), pulmonary embolus (2012), thyroid disease, other (Morbid obesity, obstructive sleep apnea) Psychiatric history: anxiety, depression - Past Surgical History Surgical History: other (Tonsillectomy, rhinoplasty) - Social History Smoking Status: Current every day smoker Smokeless Tobacco Status: No Alcohol use: none Drug use: none Internal Medicine - H&P: Meds Albuterol Sulfate [Proair Hfa] 2 puff IH Q4H PRN 08/15/15 [History] Furosemide [Lasix] 80 mg PO DAILY 08/15/15 [History] Gabapentin [Neurontin] 600 mg PO TID 08/15/15 [History] Hydrocodone/Acetaminophen [Vicodin Es 7.5-300 mg Tablet] 7.5 mg PO Q6H PRN 08/14 [History] Levothyroxine [Synthroid] 50 mcg PO DAILY 08/15/15 [History] Allopurinol [Zyloprim] 100 mg PO DAILY 11/06/16 [History] Cholecalciferol (Vitamin D3) [Vitamin D3] 1,000 unit PO DAILY 11/06/16 [History] Fluticasone/Salmeterol [Advair 250-50 Diskus] 1 puff IH BID 07/15/17 [History] Nystatin Cream [Mycostatin Cream] 1 appl TP BID 07/15/17 [History] Nystatin POWDER [Nystop] 1 appl TP BID 07/15/17 [History] Polyvinyl Alcohol/Povidone [Artificial Tears Drops] 1 drop BOTH EYES QID [History] Potassium Chloride [K-Tab ER] 20 meq PO QID 07/15/17 [History] Tiotropium [Spiriva] 18 mcg IH 0700 07/15/17 [History] 3 Allergy/AdvReac Type Severity Reaction Status Date / Time adhesive tape Allergy Rash Verified 11/06/16 22:19 lisinopril AdvReac Cough Verified 11/06/16 22:19 All Systems PM: A 10-system review of systems was performed and is negative for pertinent findings except as documented above in the HPI. Review of systems: Gen.: Her weight has increased from 136.078 kg at the August 2013 hospitalization to present weight of 173.896 kg. Cardiovascular: As per history of present illness Respiratory: She has smoked since age 3 up to 1-1/2 packs per day. She had PFTs in the past and was told she had COPD. She wears oxygen at bedtime and when necessary during the daytime. She has KB and wears BiPAP at bedtime. GI: She denies disorders of her liver gallbladder or exocrine pancreas. : No history of hematuria dysuria or kidney stones. Neurologic: She denies large distribution strokes or seizures. Endocrine: She has hypothyroidism but no known diabetes or hyperlipidemia Hematology/oncology: She denies blood disorders cancers or anemia. Psychiatric: She denies anxiety depression or other mental health issues [place] skeletal: She has DJD and gout but no known osteoporosis. - Constitutional Vitals: Temp Pulse Resp BP Pulse Ox 98.1 F 104 22 94/58 93 07/15/17 15:20 07/15/17 15:20 07/15/17 15:20 07/15/17 15:20 07/15/17 15:20 Exam: Gen.: She is a well-developed morbidly obese female lying in bed who appears in no severe distress. HEENT: Head is atraumatic and normocephalic. Eyes: EOMI. There is no scleral icterus. Mouth: Mucosa is moist. Neck: She has a large jowl. There is no tenderness to palpation. Heart: Irregularly irregular with rate approximately 100/m. Lungs: No wheezes or crackles are heard. She has diminished breath sounds diffusely. Abdomen: She has a massive pannus. There is skin thickening and induration in the dependent portion of the pannus. Organ size cannot be determined. Extremities: Dorsalis pedis and posttibial pulses are trace palpable bilaterally. Feet are warm to touch. She has minimal DJD changes of her hands. Neurologic: Mental status: She is talkative and a good historian. Cranial nerves: Smile is symmetric. Forehead wrinkles bilaterally. Tongue protrudes midline. EOMI. Motor: There is no pronator drift. Cerebellar: finger to nose is intact bilaterally. Skin: She has multiple shallow ulcers which she states are due to her picking her skin. There are various stages of healing seen among the ulcers with numerous scars on her upper chest from previous healed ulcers. Internal Med - H&P Results - Labs CBC & Chem 7: 07/15/17 09:51 07/15/17 09:51
[2017-07-15] MEDS ORDERED: Ipratropium/Albuterol Neb 3 ML IH SCH (16:00)
[2017-07-15] MEDS: Albuterol 2.5 MG/3 ML NEBULIZER IH PRN (16:23)
[2017-07-15] MEDS: *HR* HYDROcodone/Acet 7.5/325 mg TABLET PO PRN ×2 (16:24→22:40)
[2017-07-15] MEDS: Nystatin POWDER 30 GM BOTTLE TP SCH ×2 (16:25→21:07)
[2017-07-15] MEDS ORDERED: *HR* Rivaroxaban 10 MG TABLET PO SCH (17:00)
[2017-07-15] MEDS ORDERED: *HR* Enoxaparin 150 MG/ML SYRINGE SQ SCH (18:00)
[2017-07-15] MEDS ORDERED: Gabapentin 300 MG CAPSULE PO SCH (21:00)
[2017-07-16] MEDS: Albuterol 2.5 MG/3 ML NEBULIZER IH PRN (00:50)
[2017-07-16] MEDS: Nystatin POWDER 30 GM BOTTLE TP SCH (03:30)
[2017-07-16] MEDS: *HR* HYDROcodone/Acet 7.5/325 mg TABLET PO PRN (04:15)
[2017-07-16] MEDS ORDERED: Levothyroxine 25 MCG TABLET PO SCH (06:30)
[2017-07-16 07:04] VITALS: BP 105/68
--- NOTE | 2017-07-16 08:51 | Discharge Summary ---
Orders not resulted at time of discharge: Pending orders 07/16/17 06:11 Hgb A1C AM 0400 Vitamin B12 AM 0400 Date of Encounter: 07/16/17 Time of Encounter: 08:40 - Discharge Diagnosis (1) Atrial flutter with rapid ventricular response Priority: Primary Status: Acute (2) Dyspnea Priority: Secondary Status: Acute Qualifiers: Dyspnea type: shortness of breath Qualified Code(s): R06.02 - Shortness of breath; R06.00 - Dyspnea, unspecified; R06.01 - Orthopnea Hospital course: Ms. Wong is a 57 year old female who came to emergency room complaining of increasing dyspnea over the past 2 weeks. There was no significant cough. She has had periodic chest pain that she describes as occasionally a dull ache and occasionally as sharp. He was evaluated in emergency room and found to have atrial flutter with RVR. She was admitted to [facility] for ongoing care needs. Initial orders were written by the emergency room physician. I saw her on July 15 and performed the history and physical. She was given a dose of Cardizem in the emergency room and started on Lanoxin. Her heart rate decreased to approximately 90/m. She was started on Xarelto for CVA prophylaxis. Hemoglobin A1c and B12 levels were ordered with results pending at time of discharge. Her dyspnea improved and when I saw her on July 16 she was stable for discharge home. She will follow with her PCP Kierra Tan CNP within 1 week. She will continue on Lanoxin and Xarelto. - Time Spent with Patient Total time spent providing and/or coordinating discharge services: - Discharge Medications Prescriptions: Digoxin [Lanoxin] 0.25 mg PO DAILY #30 tablet Rivaroxaban [Xarelto] 20 mg PO 1700 #30 tablet Home Medications: Albuterol Sulfate [Proair Hfa] 2 puff IH Q4H PRN 08/15/15 [History] Furosemide [Lasix] 80 mg PO DAILY 08/15/15 [History] Gabapentin [Neurontin] 600 mg PO TID 08/15/15 [History] Hydrocodone/Acetaminophen [Vicodin Es 7.5-300 mg Tablet] 7.5 mg PO Q6H PRN 08/14 [History] Levothyroxine [Synthroid] 50 mcg PO DAILY 08/15/15 [History] Allopurinol [Zyloprim] 100 mg PO DAILY 11/06/16 [History] Cholecalciferol (Vitamin D3) [Vitamin D3] 1,000 unit PO DAILY 11/06/16 [History] Fluticasone/Salmeterol [Advair 250-50 Diskus] 1 puff IH BID 07/15/17 [History] Nystatin Cream [Mycostatin Cream] 1 appl TP BID 07/15/17 [History] Nystatin POWDER [Nystop] 1 appl TP BID 07/15/17 [History] Polyvinyl Alcohol/Povidone [Artificial Tears Drops] 1 drop BOTH EYES QID [History] Potassium Chloride [K-Tab ER] 20 meq PO QID 07/15/17 [History] Tiotropium [Spiriva] 18 mcg IH 0700 07/15/17 [History] Digoxin [Lanoxin] 0.25 mg PO DAILY #30 tablet 07/16/17 [Rx] Rivaroxaban [Xarelto] 20 mg PO 1700 #30 tablet 07/16/17 [Rx] Allergies/Adverse Reactions: 3 Allergy/AdvReac Type Severity Reaction Status Date / Time adhesive tape Allergy Rash Verified 11/06/16 22:19 lisinopril AdvReac Cough Verified 11/06/16 22:19 Date of admission: 07/15/17 10:38 Primary care physician: Kierra Tan CNP Consults: 07/15/17 18:54 Consult to Electronic Train Control Technician [CONS] Routine Reason for SW Consult: Discharge planning - Constitutional Vitals: Temp Pulse Resp BP Pulse Ox 98.2 F 89 18 105/68 94 07/16/17 07:03 07/16/17 07:03 07/16/17 07:03 07/16/17 07:03 07/16/17 07:03 - Patient Status Disposition: Home Health Service Condition: Fair Functional capacity at discharge: uses cane/walker Overall status at discharge: patient is progressing back to baseline - Discharge Instructions Follow Up With: Kierra Tan CNP [Primary Care Provider] - 1 week - Diet and Activity Activity: resume usual activities as tolerated, wear oxygen at all times Diet: advance to your usual diet
[2017-07-16] MEDS ORDERED: *HR* Digoxin 0.25 MG TABLET PO SCH (09:00)
--- NOTE | 2017-07-16 09:02 | Physician Discharge Referral ---
Home Health/Hosp Referral Info Transfer to: Home Health Attending Provider: Gurjit Provider in Charge Post Discharge: PCP (Kierra Tan CNP) - Diagnosis (1) Atrial flutter with rapid ventricular response Priority: Primary Status: Acute (2) Dyspnea Priority: Secondary Status: Acute - Respiratory Orders Oxygen / L per min (2 L/m by nasal cannula 13/12. Bleed into BiPAP at bedtime.) Smoking Cessation: Smoking cessation has been advised. For more information, call the [place] Tobacco Quit Line at 2-402-KTMU-NOW. - Diet/Nutrition Diet/Nutrition Orders: No Concentrated Sweets - Activity Activity Orders: Ambulate - Services Needed Following services are medically necessary services: Nursing, Home Health Aide, Physical Therapy, Occupational Therapy - Transfer Medications Prescriptions: Digoxin [Lanoxin] 0.25 mg PO DAILY #30 tablet Rivaroxaban [Xarelto] 20 mg PO 1700 #30 tablet Home Medications: Albuterol Sulfate [Proair Hfa] 2 puff IH Q4H PRN 08/15/15 [History] Furosemide [Lasix] 80 mg PO DAILY 08/15/15 [History] Gabapentin [Neurontin] 600 mg PO TID 08/15/15 [History] Hydrocodone/Acetaminophen [Vicodin Es 7.5-300 mg Tablet] 7.5 mg PO Q6H PRN 08/14 [History] Levothyroxine [Synthroid] 50 mcg PO DAILY 08/15/15 [History] Allopurinol [Zyloprim] 100 mg PO DAILY 11/06/16 [History] Cholecalciferol (Vitamin D3) [Vitamin D3] 1,000 unit PO DAILY 11/06/16 [History] Fluticasone/Salmeterol [Advair 250-50 Diskus] 1 puff IH BID 07/15/17 [History] Nystatin Cream [Mycostatin Cream] 1 appl TP BID 07/15/17 [History] Nystatin POWDER [Nystop] 1 appl TP BID 07/15/17 [History] Polyvinyl Alcohol/Povidone [Artificial Tears Drops] 1 drop BOTH EYES QID [History] Potassium Chloride [K-Tab ER] 20 meq PO QID 07/15/17 [History] Tiotropium [Spiriva] 18 mcg IH 0700 07/15/17 [History] Digoxin [Lanoxin] 0.25 mg PO DAILY #30 tablet 07/16/17 [Rx] Rivaroxaban [Xarelto] 20 mg PO 1700 #30 tablet 07/16/17 [Rx] Allergies/Adverse Reactions: 3 Allergy/AdvReac Type Severity Reaction Status Date / Time adhesive tape Allergy Rash Verified 11/06/16 22:19 lisinopril AdvReac Cough Verified 11/06/16 22:19 Certification: Further, I certify that my clinical findings support that this patient is homebound (i.e. absences from home require considerable and taxing effort and are for medical reasons or buddhist services or infrequently or short duration when for other reasons) because: Homebound Reason: Leaving home requires considerable and taxing effort due to condition (Morbid obesity with impaired ambulation ability.) Attestation: My signature below is to certify that this patient is under my care and that I, or nurse practitioner, or a physician's temporary office assistant working with me, has a face-to -face encounter with this patient.
[2017-07-16 09:15] LABS: Hemoglobin A1C 5.6 %
[2017-07-16] MEDS ORDERED: Tiotropium 18 MCG inhalation IH SCH (10:00)
== END 2017-07-16 09:45 | disposition home health service (06) ==
LOC: EMEROOPIK 09:32 → INPPIK 09:32
PROVIDERS: ADMIT Internal Medicine; ATTEND Internal Medicine

== ENCOUNTER 2017-07-30 18:57 | Inpatient (IN) ==
[2017-07-30] MEDS: Gabapentin 300 MG CAPSULE PO SCH (21:57)
[2017-07-30] MEDS: Artificial Tears SOLN 15 ML BOTTLE BOTH EYES SCH (21:57)
[2017-07-30] MEDS: *HR* HYDROcodone/Acet 7.5/325 mg TABLET PO PRN (22:02)
[2017-07-30] MEDS ORDERED: MOM Conc 10 ML UD.LIQ PO PRN (22:05)
[2017-07-30] MEDS: Albuterol 2.5 MG/3 ML NEBULIZER IH SCH (22:41)
[2017-07-30] MEDS: Budesonide/Formoterol 80/4.5 MDI IH SCH (22:42)
[2017-07-31] MEDS: Nystatin POWDER 30 GM BOTTLE TP SCH ×3 (03:37→23:28)
[2017-07-31 05:47] LABS: Basophils % 0.5 %; Eosinophils # 0.2 K/mcL (0.0-0.6); Eosinophils % 1.9 %; Hematocrit 50.4 % (35.3-44.9); Immature Granulocytes % 0.2 % (0-4); Lymphocytes # 1.4 K/mcL (0.6-4.6); Lymphocytes % 16.4 %; Mean Corpuscular HGB Conc 29.8 g/dL (31.6-35.5); Mean Corpuscular Hemoglobin 27.7 pg (28.0-33.3); Mean Platelet Volume 12.4 fL (9.4-12.4); Monocytes # 0.8 K/mcL (0.0-1.3); Monocytes % 8.6 %; Neutrophils # 6.3 K/mcL (1.6-8.9); Platelet Count 141 K/mcL (140-400); Red Blood Count 5.42 M/mcL (3.82-4.97); Red Cell Distribution Width 16.2 % (11.5-14.5); Segmented Neutrophils % 72.4 %
[2017-07-31 05:54] LABS: INR 1.4; Prothrombin Time 15.2 Seconds (9.4-12.1)
[2017-07-31] MEDS: *HR* HYDROcodone/Acet 7.5/325 mg TABLET PO PRN ×2 (05:56→19:22)
[2017-07-31 05:57] LABS: Activated Partial Thrombo Time 36.3 Seconds (26.0-36.0)
[2017-07-31] MEDS: Levothyroxine 25 MCG TABLET PO SCH (05:57)
[2017-07-31 06:36] LABS: BUN/Creatinine Ratio 24 (6-26); Blood Urea Nitrogen 13 mg/dL (6-20); Calcium 9.3 mg/dL (8.6-10.3); Carbon Dioxide 41 mEq/L (23-29); Chloride 92 mEq/L (98-107); Glucose 116 mg/dL (70-105); Osmolality,Calculated 289 (280-300); Potassium 3.6 mEq/L (3.5-5.1); Sodium 139 mEq/L (136-145); eGFR For African Americans > 60 (> 60); eGFR For Non-African Americans > 60 (> 60)
[2017-07-31] MEDS: Albuterol 2.5 MG/3 ML NEBULIZER IH SCH ×3 (07:53→22:52)
[2017-07-31] MEDS: Tiotropium 18 MCG inhalation IH SCH (07:54)
[2017-07-31] MEDS: Fluconazole 100 MG TABLET PO SCH (08:42)
[2017-07-31] MEDS: Artificial Tears SOLN 15 ML BOTTLE BOTH EYES SCH ×4 (08:42→23:28)
[2017-07-31] MEDS: Furosemide 40 MG TABLET PO SCH (08:43)
[2017-07-31] MEDS: Gabapentin 300 MG CAPSULE PO SCH ×3 (08:43→21:09)
[2017-07-31] MEDS: Metoprolol XL (24 HR) Succ 50 MG TAB.ER.24H PO SCH (08:44)
[2017-07-31] MEDS: Cholecalciferol (D-3) 1,000 UNIT TABLET PO SCH (08:45)
[2017-07-31] MEDS: *HR* Digoxin 0.25 MG TABLET PO SCH (08:46)
[2017-07-31] MEDS: Budesonide/Formoterol 80/4.5 MDI IH SCH ×2 (10:41→22:53)
--- NOTE | 2017-07-31 12:07 | Internal Med History&Physical ---
Date of Encounter: 07/31/17 Time of Encounter: 11:35 Assessment and Plan (1) CHF (congestive heart failure) Current visit: No Status: Acute Continue Toprol and Lasix Qualifiers: Heart failure type: diastolic Heart failure chronicity: acute on chronic Qualified Code(s): I50.33 - Acute on chronic diastolic (congestive) heart failure (2) Atrial fibrillation Current visit: Yes Status: Chronic Continue Toprol and Xarelto Qualifiers: Atrial fibrillation type: chronic Qualified Code(s): I48.2 - Chronic atrial fibrillation (3) Hypothyroidism Current visit: No Status: Chronic Continue Synthroid Qualifiers: Hypothyroidism type: unspecified Qualified Code(s): E03.9 - Hypothyroidism , unspecified (4) COPD (chronic obstructive pulmonary disease) Current visit: No Status: Acute Continue Spiriva, Proventil nebs, and albuterol inhaler when necessary. Qualifiers: COPD type: unspecified COPD Qualified Code(s): J44.9 - Chronic obstructive pulmonary disease, unspecified (5) Vitamin D deficiency Current visit: No Status: Chronic Continue supplemental vitamin D. (6) B12 deficiency Current visit: No Status: Chronic Continue supplemental B12. Internal Medicine - H&P: HPI Chief complaint: Dyspnea Admitted From: Hospital to Hospital Transfer Plans for Post Hospital Care: Home History of present illness: Ms. Wong is a 57 year old female who was discharged to [facility] swing bed following a July 26 stay at [facility] after admission for CHF and COPD. She had been discharged from [facility] 07/16/2017 following admission for AF with RVR. She was prescribed Lanoxin and Xarelto at discharge did not fill these prescriptions. Evaluation at [facility] included echocardiogram which showed LVEF of 40-45% which was decreased from LVEF of 55% on December 2014 TTE. LAE was 4.0 cm. Right atrium was not well visualized because of body habitus. There appeared to be mild aortic stenosis. She was started on Xarelto at discharge. Lanoxin was changed to Toprol-XL and she was discharged [facility] swing bed for rehabilitation therapy prior to returning home. Cardiovascular history significant otherwise for hypertension but no IL or angina. She reported pulmonary embolus February 2013. Past Med Surg Social Fam HX - Past Medical History Medical history: arthritis, atrial fibrillation, COPD, DVT, pulmonary embolus, thyroid disease, other Psychiatric history: no psych history - Past Surgical History Surgical History: other - Social History Smoking Status: Former smoker Smokeless Tobacco Status: No Alcohol use: none Drug use: none - Family History Sister Hx Family Cardiac Disorders: Yes ([place]) Hx Family Endocrine Disorder: Yes (DM) Brother Hx Family Cardiac Disorders: Yes ([place]) Hx Family Endocrine Disorder: Yes (DM) Internal Medicine - H&P: Meds Albuterol Sulfate [Proair Hfa] 2 puff IH Q4H PRN 08/15/15 [History] Furosemide [Lasix] 80 mg PO DAILY 08/15/15 [History] Levothyroxine [Synthroid] 50 mcg PO QAM 08/15/15 [History] Allopurinol [Zyloprim] 100 mg PO DAILY 11/06/16 [History] Fluticasone/Salmeterol [Advair 250-50 Diskus] 1 each IH BID 07/15/17 [History] Nystatin Cream [Mycostatin Cream] 1 appl TP BID 07/15/17 [History] Nystatin POWDER [Nystop] 1 appl TP BID 07/15/17 [History] Polyvinyl Alcohol/Povidone [Artificial Tears Drops] 1 drop BOTH EYES QID [History] Potassium Chloride [K-Tab ER] 20 meq PO QID 07/15/17 [History] Tiotropium [Spiriva] 18 mcg IH 0700 07/15/17 [History] Albuterol Neb [Proventil Neb] 2.5 mg IH TID 07/26/17 [History] Cholecalciferol (D-3) [Vitamin D] 2,000 unit PO DAILY 07/26/17 [History] Gabapentin [Neurontin] 600 mg PO TID 07/26/17 [History] HYDROcodone/Acet 7.5/325 mg [[place] 7.5-325 mg] 1 tab PO Q6H PRN 07/26/17 [ History] Oxygen 3 l NS AD 07/26/17 [History] Rivaroxaban [Xarelto] 20 mg PO DAILY #30 tablet 07/27/17 [Rx] Fluconazole [Diflucan] 100 mg PO DAILY 7 Days #7 tablet 07/30/17 [Rx] Metoprolol XL (24 HR) Succ [Toprol Xl] 50 mg PO DAILY 30 Days #30 tab.er.24h 03/ 10/18 [Rx] 3 Allergy/AdvReac Type Severity Reaction Status Date / Time adhesive tape Allergy Rash Verified 07/26/17 17:47 lisinopril AdvReac Cough Verified 07/26/17 17:47 All Systems PM: A 10-system review of systems was performed and is negative for pertinent findings except as documented above in the HPI. Review of systems: Review of systems from her June 2017 [facility] hospitalization were reviewed and revised as below. Gen.: Her weight was 136.078 kg at the August 2013 [facility] hospitalization. Weight has decreased from 173.896 kg on 07/15/2017 to 169.814 kg today. Cardiovascular: As per history of present illness Respiratory: She has smoked since age 3 up to 1-1/2 packs per day. She had PFTs in the past and was told she had COPD. She wears oxygen at bedtime and when necessary during the daytime. She has KB and wears BiPAP at bedtime. GI: She denies disorders of her liver gallbladder or exocrine pancreas. : No history of hematuria dysuria or kidney stones. Neurologic: She denies large distribution strokes or seizures. Endocrine: She has hypothyroidism but no known diabetes or hyperlipidemia. TSH was normal at 2.176 during her recent [facility] hospitalization. Hematology/oncology: She denies blood disorders cancers or anemia. Psychiatric: She denies anxiety depression or other mental health issues Musk skeletal: She has DJD and gout but no known osteoporosis. - Constitutional Vitals: Temp Pulse Resp BP Pulse Ox 97.7 F 101 18 122/70 95 07/31/17 06:48 07/31/17 08:39 07/31/17 07:54 07/31/17 08:39 07/31/17 07:54 Exam: Gen.: She is a well-developed morbidly obese female lying in bed who appears in no severe distress HEENT: Head is atraumatic and normocephalic. Eyes: EOMI. There is no scleral icterus. Mouth: Mucosa is moist. Neck: She has a large jowl. There is no thyromegaly or adenopathy noted. Heart: Irregularly irregular without murmurs or gallops. Tones are soft. Lungs: No wheezes or crackles are heard. Abdomen: She has a massive pannus. Organ size cannot be determined. Abdomen is nontender to palpation. Extremities: She has trace to 1+ edema of the dorsum of the feet and lower legs bilaterally. Dorsalis pedis and posttibial pulses are not palpable. She has minimal DJD changes of her hands. Neurologic: Mental status: She is talkative and a good historian. Cranial nerves: Smile is symmetric. Forehead wrinkles bilaterally. Tongue protrudes midline. EOMI. Motor: There is no pronator drift. Cerebellar: Finger to nose is intact bilaterally. Skin: Warm and dry. She has multiple shallow excoriation/ulcerated areas on her face and body from picking her skin. She appears to have areas of psoriasis. She has tinea pedis of her feet. Internal Med - H&P Results - Labs CBC & Chem 7: 07/31/17 04:55 07/31/17 04:55 Labs: Short CBC 07/31/17 Range/Units 04:55 WBC 8.7 (4.3-11.1) K/mcL Hgb 15.0 (11.5-15.4) g/dL Hct 50.4 H (35.3-44.9) % Plt Count 141 (140-400) K/mcL Neutrophils # 6.3 (1.6-8.9) K/mcL BMP 07/31/17 04:55 Sodium 139 Potassium 3.6 Chloride 92 L Carbon Dioxide 41 H* BUN 13 Creatinine 0.54 L Glucose 116 H Calcium 9.3
[2017-07-31] MEDS: *HR* Rivaroxaban 10 MG TABLET PO SCH (16:19)
[2017-07-31] MEDS: Nystatin Cream 15 GM TUBE TP SCH (23:30)
[2017-08-01] MEDS: *HR* HYDROcodone/Acet 7.5/325 mg TABLET PO PRN ×3 (03:59→21:29)
[2017-08-01] MEDS: Albuterol 2.5 MG/3 ML NEBULIZER IH SCH ×3 (06:22→22:36)
[2017-08-01] MEDS: Tiotropium 18 MCG inhalation IH SCH (06:26)
[2017-08-01] MEDS: Levothyroxine 25 MCG TABLET PO SCH (06:42)
[2017-08-01] MEDS: Budesonide/Formoterol 80/4.5 MDI IH SCH ×2 (10:03→22:36)
[2017-08-01] MEDS: Fluconazole 100 MG TABLET PO SCH (10:14)
[2017-08-01] MEDS: Gabapentin 300 MG CAPSULE PO SCH (10:15)
[2017-08-01] MEDS: *HR* Digoxin 0.25 MG TABLET PO SCH (10:15)
[2017-08-01] MEDS: Furosemide 40 MG TABLET PO SCH (10:15)
[2017-08-01] MEDS: Cyanocobalamin (B-12) 1,000 MCG TABLET PO SCH (10:16)
[2017-08-01] MEDS: Metoprolol XL (24 HR) Succ 50 MG TAB.ER.24H PO SCH (10:16)
[2017-08-01] MEDS: Cholecalciferol (D-3) 1,000 UNIT TABLET PO SCH (10:16)
[2017-08-01] MEDS: Artificial Tears SOLN 15 ML BOTTLE BOTH EYES SCH ×4 (10:16→21:28)
[2017-08-01] MEDS: Nystatin Cream 15 GM TUBE TP SCH (10:17)
[2017-08-01] MEDS: Nystatin POWDER 30 GM BOTTLE TP SCH (10:20)
--- NOTE | 2017-08-01 12:30 | Internal Med Progress Note ---
Date of Encounter: 08/01/17 Time of Encounter: 12:20 - Assessment and plan (1) CHF (congestive heart failure) Current Visit: No Status: Acute Assessment and plan: August 01. Continue Toprol and Lasix. Qualifiers: Heart failure type: diastolic Heart failure chronicity: acute on chronic Qualified Code(s): I50.33 - Acute on chronic diastolic (congestive) heart failure (2) Atrial fibrillation Current Visit: Yes Status: Chronic Assessment and plan: August 01. Continue Toprol and Xarelto Qualifiers: Atrial fibrillation type: chronic Qualified Code(s): I48.2 - Chronic atrial fibrillation (3) Hypothyroidism Current Visit: No Status: Chronic Assessment and plan: August 01. Continue Synthroid Qualifiers: Hypothyroidism type: unspecified Qualified Code(s): E03.9 - Hypothyroidism , unspecified (4) COPD (chronic obstructive pulmonary disease) Current Visit: No Status: Acute Assessment and plan: August 01. Continue Spiriva, Proventil nebs, and albuterol inhaler when necessary Qualifiers: COPD type: unspecified COPD Qualified Code(s): J44.9 - Chronic obstructive pulmonary disease, unspecified (5) Vitamin D deficiency Current Visit: No Status: Chronic Assessment and plan: August 01. Continue supplemental vitamin D (6) B12 deficiency Current Visit: No Status: Chronic Assessment and plan: August 01. Continue supplemental B12. - Subjective Interval history: August 01. She has no new complaints - Constitutional Vitals: Temp Pulse Resp BP Pulse Ox 97.6 F 86 24 116/66 91 08/01/17 10:13 08/01/17 10:13 08/01/17 10:13 08/01/17 10:13 08/01/17 10:13 Exam: She is sitting on a bedside commode and appears in no acute distress. Her affect is cheerful. Extremities show no significant change in edema. I reviewed her medications and lab results. Internal Medicine: Result - Labs CBC & Chem 7: 07/31/17 04:55 07/31/17 04:55 - ABG Interpretation ABG results: PT/INR, D-dimer PT 15.2 Seconds (9.4-12.1) H 07/31/17 04:55 Consult Discharge Plan - Plan Referrals: Kierra Tan, CENTRAL SERVICE TECHNICIAN [Primary Care Provider] - 1 week
[2017-08-01] MEDS: *HR* Rivaroxaban 10 MG TABLET PO SCH (15:56)
[2017-08-01] MEDS: Gabapentin 400 MG CAPSULE PO SCH ×2 (15:56→21:27)
[2017-08-02] MEDS: *HR* HYDROcodone/Acet 7.5/325 mg TABLET PO PRN ×4 (03:34→22:03)
[2017-08-02] MEDS: Nystatin POWDER 30 GM BOTTLE TP SCH ×3 (03:36→22:05)
[2017-08-02] MEDS: Nystatin Cream 15 GM TUBE TP SCH ×3 (03:37→22:05)
[2017-08-02] MEDS: Albuterol 2.5 MG/3 ML NEBULIZER IH SCH ×3 (06:24→22:45)
[2017-08-02] MEDS: Tiotropium 18 MCG inhalation IH SCH (06:25)
[2017-08-02] MEDS: Levothyroxine 25 MCG TABLET PO SCH (06:44)
[2017-08-02] MEDS: Fluconazole 100 MG TABLET PO SCH (08:13)
[2017-08-02] MEDS: Artificial Tears SOLN 15 ML BOTTLE BOTH EYES SCH ×4 (08:13→22:05)
[2017-08-02] MEDS: Gabapentin 400 MG CAPSULE PO SCH ×3 (08:14→21:02)
[2017-08-02] MEDS: *HR* Digoxin 0.25 MG TABLET PO SCH (08:14)
[2017-08-02] MEDS: Furosemide 40 MG TABLET PO SCH (08:14)
[2017-08-02] MEDS: Metoprolol XL (24 HR) Succ 50 MG TAB.ER.24H PO SCH (08:15)
[2017-08-02] MEDS: Cyanocobalamin (B-12) 1,000 MCG TABLET PO SCH (08:15)
[2017-08-02] MEDS: Cholecalciferol (D-3) 1,000 UNIT TABLET PO SCH (08:15)
[2017-08-02] MEDS: Budesonide/Formoterol 80/4.5 MDI IH SCH ×2 (09:40→22:45)
[2017-08-02] MEDS: *HR* Rivaroxaban 10 MG TABLET PO SCH (17:35)
[2017-08-03] MEDS: *HR* HYDROcodone/Acet 7.5/325 mg TABLET PO PRN ×2 (04:00→10:11)
[2017-08-03] MEDS: Levothyroxine 25 MCG TABLET PO SCH (05:34)
[2017-08-03 07:24] VITALS: BP 136/76
[2017-08-03] MEDS: Albuterol 2.5 MG/3 ML NEBULIZER IH SCH (07:36)
[2017-08-03] MEDS: Budesonide/Formoterol 80/4.5 MDI IH SCH (07:40)
[2017-08-03] MEDS: Tiotropium 18 MCG inhalation IH SCH (07:41)
[2017-08-03] MEDS: Artificial Tears SOLN 15 ML BOTTLE BOTH EYES SCH (09:06)
[2017-08-03] MEDS: Cholecalciferol (D-3) 1,000 UNIT TABLET PO SCH (09:06)
[2017-08-03] MEDS: *HR* Digoxin 0.25 MG TABLET PO SCH (09:07)
[2017-08-03] MEDS: Cyanocobalamin (B-12) 1,000 MCG TABLET PO SCH (09:07)
[2017-08-03] MEDS: Fluconazole 100 MG TABLET PO SCH (09:07)
[2017-08-03] MEDS: Furosemide 40 MG TABLET PO SCH (09:08)
[2017-08-03] MEDS: Gabapentin 400 MG CAPSULE PO SCH (09:08)
[2017-08-03] MEDS: Metoprolol XL (24 HR) Succ 50 MG TAB.ER.24H PO SCH (09:08)
--- NOTE | 2017-08-03 12:43 | Discharge Summary ---
Date of Encounter: 08/03/17 Time of Encounter: 12:30 - Discharge Diagnosis (1) CHF (congestive heart failure) Priority: Primary Status: Acute Qualifiers: Heart failure type: diastolic Heart failure chronicity: acute on chronic Qualified Code(s): I50.33 - Acute on chronic diastolic (congestive) heart failure (2) Atrial fibrillation Priority: Secondary Status: Chronic Qualifiers: Atrial fibrillation type: chronic Qualified Code(s): I48.2 - Chronic atrial fibrillation (3) Hypothyroidism Priority: Secondary Status: Chronic Qualifiers: Hypothyroidism type: unspecified Qualified Code(s): E03.9 - Hypothyroidism , unspecified (4) COPD (chronic obstructive pulmonary disease) Priority: Secondary Status: Chronic Qualifiers: COPD type: unspecified COPD Qualified Code(s): J44.9 - Chronic obstructive pulmonary disease, unspecified (5) Vitamin D deficiency Priority: Secondary Status: Chronic (6) B12 deficiency Priority: Secondary Status: Chronic Hospital course: Ms. Wong is a 57 year old female who was discharged to [facility] swing bed following a July 26 stay at [facility] after admission for CHF and COPD. She had been discharged from [facility] 07/16/2017 following admission for AF with RVR. She was prescribed Lanoxin and Xarelto at discharge did not fill these prescriptions. Evaluation at [facility] included echocardiogram which showed LVEF of 40-45% which was decreased from LVEF of 55% on December 2014 TTE. LAE was 4.0 cm. Right atrium was not well visualized because of body habitus. There appeared to be mild aortic stenosis. She was started on Xarelto at discharge. Lanoxin was changed to Toprol-XL and she was discharged [facility] swing bed for rehabilitation therapy prior to returning home. Initial orders were written by the emergency room physician. I saw her on July 31 and performed a swing bed history and physical. She continued Toprol, Lasix, and Xarelto on admission. She reported the day of discharge she had some slight vaginal bleeding and did not want continue Xarelto. I will let her discuss this with her PCP and/or packing room supervisor. She had physical therapy and occupational therapy evaluations with ongoing intervention. She had poor motivation frequently when working with therapists. On August 03 she wished to be discharged home. She will follow with her PCP Kierra Tan CNP within 1 week. Home health services will be ordered at discharge. - Time Spent with Patient Total time spent providing and/or coordinating discharge services: - Discharge Medications Prescriptions: Cyanocobalamin (B-12) [Vitamin B12] 1,000 mcg PO DAILY #30 tablet Cyclobenzaprine [Flexeril] 10 mg PO BID PRN #15 tablet PRN Reason: Muscle Spasm Digoxin [Lanoxin] 0.25 mg PO DAILY #30 tablet Gabapentin [Neurontin] 400 mg PO TID 30 Days #90 capsule Metoprolol XL (24 HR) Succ [Toprol Xl] 50 mg PO DAILY 30 Days #30 tab.er.24h Home Medications: Albuterol Sulfate [Proair Hfa] 2 puff IH Q4H PRN 08/15/15 [History] Furosemide [Lasix] 80 mg PO DAILY 08/15/15 [History] Levothyroxine [Synthroid] 50 mcg PO QAM 08/15/15 [History] Allopurinol [Zyloprim] 100 mg PO DAILY 11/06/16 [History] Fluticasone/Salmeterol [Advair 250-50 Diskus] 1 each IH BID 07/15/17 [History] Nystatin Cream [Mycostatin Cream] 1 appl TP BID 07/15/17 [History] Nystatin POWDER [Nystop] 1 appl TP BID 07/15/17 [History] Polyvinyl Alcohol/Povidone [Artificial Tears Drops] 1 drop BOTH EYES QID [History] Potassium Chloride [K-Tab ER] 20 meq PO QID 07/15/17 [History] Tiotropium [Spiriva] 18 mcg IH 0700 07/15/17 [History] Albuterol Neb [Proventil Neb] 2.5 mg IH TID 07/26/17 [History] Cholecalciferol (D-3) [Vitamin D] 2,000 unit PO DAILY 07/26/17 [History] HYDROcodone/Acet 7.5/325 mg [[place] 7.5-325 mg] 1 tab PO Q6H PRN 07/26/17 [ History] Oxygen 3 l NS AD 07/26/17 [History] Rivaroxaban [Xarelto] 20 mg PO DAILY #30 tablet 07/27/17 [Rx] Fluconazole [Diflucan] 100 mg PO DAILY 7 Days #7 tablet 07/30/17 [Rx] Cyanocobalamin (B-12) [Vitamin B12] 1,000 mcg PO DAILY #30 tablet 08/03/17 [Rx] Cyclobenzaprine [Flexeril] 10 mg PO BID PRN #15 tablet 08/03/17 [Rx] Digoxin [Lanoxin] 0.25 mg PO DAILY #30 tablet 08/03/17 [Rx] Gabapentin [Neurontin] 400 mg PO TID 30 Days #90 capsule 08/03/17 [Rx] Metoprolol XL (24 HR) Succ [Toprol Xl] 50 mg PO DAILY 30 Days #30 tab.er.24h [Rx] Allergies/Adverse Reactions: 3 Allergy/AdvReac Type Severity Reaction Status Date / Time adhesive tape Allergy Rash Verified 07/26/17 17:47 lisinopril AdvReac Cough Verified 07/26/17 17:47 Date of admission: 07/30/17 19:01 Primary care physician: Kierra aTn CNP Consults: 07/30/17 20:08 Consult to Occupational Therapy [CONS] Routine Comment: Eval, Develop, and Implement P.O.C. Reason for Consult: Eval, Develop, and Implement P.O.C. - A on C CHF. A- flutter w/ RVR. Obesity Consult to Physical Therapy [CONS] Routine Comment: Eval, Develop, and Implement P.O.C. Reason for Consult: Eval, Develop, and Implement P.O.C. - A on C CHF. A- flutter w/ RVR. 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
--- NOTE | 2017-08-03 12:48 | Physician Discharge Referral ---
Home Health/Hosp Referral Info Transfer to: Home Health Attending Provider: Gurjit Provider in Charge Post Discharge: PCP (Kierra Tan CNP) - Diagnosis (1) CHF (congestive heart failure) Priority: Primary Status: Acute (2) Atrial fibrillation Priority: Secondary Status: Chronic (3) Hypothyroidism Priority: Secondary Status: Chronic (4) COPD (chronic obstructive pulmonary disease) Priority: Secondary Status: Chronic (5) Vitamin D deficiency Priority: Secondary Status: Chronic (6) B12 deficiency Priority: Secondary Status: Chronic - Respiratory Orders Oxygen / L per min (2 L/m by nasal cannula) Smoking Cessation: Smoking cessation has been advised. For more information, call the [place] Tobacco Quit Line at 1-476-OVWU-NOW. - Diet/Nutrition Diet/Nutrition Orders: Regular - Activity Activity Orders: Walker - Services Needed Following services are medically necessary services: Nursing, Home Health Aide, Physical Therapy, Occupational Therapy - Transfer Medications Prescriptions: Cyanocobalamin (B-12) [Vitamin B12] 1,000 mcg PO DAILY #30 tablet Cyclobenzaprine [Flexeril] 10 mg PO BID PRN #15 tablet PRN Reason: Muscle Spasm Digoxin [Lanoxin] 0.25 mg PO DAILY #30 tablet Gabapentin [Neurontin] 400 mg PO TID 30 Days #90 capsule Metoprolol XL (24 HR) Succ [Toprol Xl] 50 mg PO DAILY 30 Days #30 tab.er.24h Home Medications: Albuterol Sulfate [Proair Hfa] 2 puff IH Q4H PRN 08/15/15 [History] Furosemide [Lasix] 80 mg PO DAILY 08/15/15 [History] Levothyroxine [Synthroid] 50 mcg PO QAM 08/15/15 [History] Allopurinol [Zyloprim] 100 mg PO DAILY 11/06/16 [History] Fluticasone/Salmeterol [Advair 250-50 Diskus] 1 each IH BID 07/15/17 [History] Nystatin Cream [Mycostatin Cream] 1 appl TP BID 07/15/17 [History] Nystatin POWDER [Nystop] 1 appl TP BID 07/15/17 [History] Polyvinyl Alcohol/Povidone [Artificial Tears Drops] 1 drop BOTH EYES QID [History] Potassium Chloride [K-Tab ER] 20 meq PO QID 07/15/17 [History] Tiotropium [Spiriva] 18 mcg IH 0700 07/15/17 [History] Albuterol Neb [Proventil Neb] 2.5 mg IH TID 07/26/17 [History] Cholecalciferol (D-3) [Vitamin D] 2,000 unit PO DAILY 07/26/17 [History] HYDROcodone/Acet 7.5/325 mg [[place] 7.5-325 mg] 1 tab PO Q6H PRN 07/26/17 [ History] Oxygen 3 l NS AD 07/26/17 [History] Rivaroxaban [Xarelto] 20 mg PO DAILY #30 tablet 07/27/17 [Rx] Fluconazole [Diflucan] 100 mg PO DAILY 7 Days #7 tablet 07/30/17 [Rx] Cyanocobalamin (B-12) [Vitamin B12] 1,000 mcg PO DAILY #30 tablet 08/03/17 [Rx] Cyclobenzaprine [Flexeril] 10 mg PO BID PRN #15 tablet 08/03/17 [Rx] Digoxin [Lanoxin] 0.25 mg PO DAILY #30 tablet 08/03/17 [Rx] Gabapentin [Neurontin] 400 mg PO TID 30 Days #90 capsule 08/03/17 [Rx] Metoprolol XL (24 HR) Succ [Toprol Xl] 50 mg PO DAILY 30 Days #30 tab.er.24h [Rx] Allergies/Adverse Reactions: 3 Allergy/AdvReac Type Severity Reaction Status Date / Time adhesive tape Allergy Rash Verified 07/26/17 17:47 lisinopril AdvReac Cough Verified 07/26/17 17:47 Certification: Further, I certify that my clinical findings support that this patient is homebound (i.e. absences from home require considerable and taxing effort and are for medical reasons or jew services or infrequently or short duration when for other reasons) because: Homebound Reason: Leaving home requires considerable and taxing effort due to condition (COPD, CHF, significantly impaired ambulation ability) Attestation: My signature below is to certify that this patient is under my care and that I, or nurse practitioner, or a physician's assistant surveyor working with me, has a face-to -face encounter with this patient.
== END 2017-08-03 14:04 | disposition home health service (06) | DRG 945 ==
LOC: INPPIK 19:01
PROVIDERS: ADMIT Internal Medicine; ATTEND Internal Medicine

== ENCOUNTER 2019-02-15 14:11 | Inpatient (IN) ==
[2019-02-15] MEDS ORDERED: Aminoglycoside Consult 1 EACH MC ONE (14:20)
[2019-02-15] MEDS ORDERED: Furosemide 40 MG/4 ML VIAL IVP ONE (14:22)
--- NOTE | 2019-02-15 14:26 | Emergency Department Note ---
Disposition Clinical Impression: Weakness, Candidal intertrigo Cellulitis Qualifiers: Site of cellulitis: extremity Site of cellulitis of extremity: lower extremity Laterality: right Qualified Code(s): L03.115 - Cellulitis of right lower limb Disposition: Admitted As Inpatient Condition: Fair Time of Disposition: 14:55 General Adult HPI - General Chief complaint: ED General Medical Stated complaint: "I'm gaulded" Time Seen by Provider: 02/15/19 14:16 Source: patient, EMS Mode of arrival: EMS Limitations: no limitations, physical limitation Nursing Notes Reviewed: Yes Vital Signs Reviewed: Yes - History of Present Illness HPI Narrative: The patient presents by squad from home. Squad was called for leg swelling and leaking. She arrives saying that she has "cellulitis and gaulding". She has a visiting nurse that comes every Tuesday and Tuesday and she states that her nurse did not wrap her right leg this past time because it was more swollen and te nder. She is started to get abdominal blistering over the lateral aspect of the right proximal calf with some weeping. She states she has redness, itching and drainage from her folds "from my head to my toes". She states she has been able to treat these herself and requires an aide to help her. She has not had an aide for 2-3 weeks. She states because of that she has not been able to clean her folds, have medicine or base herself in over a week. Her nurse Thea does come twice a week but that is for leg care. She states she does have nystatin cream and powder at home available. She is concerned with her leg swelling but is also states she is not taking her Lasix regularly. She states she "do not want to pee all night". She does report a slight cough is nonproductive. She attributes this to "what is going around". She denies fevers but occasionally has some chills in the evening. She has chest pain or palpitations. She denies nausea, vomiting, diarrhea or abdominal problems. She denies urinary trouble but states she is going to need some Lasix and requests a Schultz catheter. She is advised that would not be prudent. We can put a suction catheter there. She denies history of diabetes. She is alert and appropriate denies any confusion, headache or mental status changes. She relates she is here because of the possible cellulitis and inability to care for herself. - Related Data Home Medications Medication Instructions Recorded Confirmed Albuterol Sulfate [Proair Hfa] 2 puff IH Q4H PRN 08/15/15 02/17/18 Levothyroxine [Synthroid] 50 mcg PO QAM 08/15/15 02/17/18 Allopurinol [Zyloprim] 100 mg PO DAILY 11/06/16 02/17/18 Fluticasone/Salmeterol [Advair 1 each IH BID 07/15/17 02/17/18 250-50 Diskus] Nystatin Cream [Mycostatin Cream] 1 appl TP BID 07/15/17 02/17/18 Nystatin POWDER [Nystop] 1 appl TP BID 07/15/17 02/17/18 Potassium Chloride [K-Tab ER] 20 meq PO QID 07/15/17 02/17/18 Tiotropium [Spiriva] 18 mcg IH 0700 07/15/17 02/17/18 Albuterol Neb [Proventil Neb] 2.5 mg IH TID 07/26/17 02/17/18 Cholecalciferol (D-3) [Vitamin D] 1,000 unit PO DAILY 07/26/17 02/17/18 Oxygen 3 l NS AD 07/26/17 02/17/18 Gabapentin [Neurontin] 600 mg PO TID 02/08/18 02/17/18 Furosemide [Lasix] 80 mg PO DAILY 02/17/18 02/17/18 HYDROcodone/Acet 7.5/325 mg [[place] 1 tab PO Q6H PRN 02/17/18 02/17/18 7.5-325 mg] Previous Rx's Medication Instructions Recorded Cyanocobalamin (B-12) [Vitamin B12] 1,000 mcg PO DAILY #30 tablet 08/03/17 Cyclobenzaprine [Flexeril] 10 mg PO BID PRN #15 tablet 08/03/17 Digoxin [Lanoxin] 0.25 mg PO DAILY 30 Days #30 tablet 02/10/18 Metoprolol XL (24 HR) Succ [Toprol 50 mg PO DAILY 30 Days #30 02/10/18 Xl] tab.er.24h Allergies Allergy/AdvReac Type Severity Reaction Status Date / Time adhesive tape Allergy Rash Verified 02/09/18 15:57 lisinopril AdvReac Cough Verified 02/09/18 15:57 All systems ED: reviewed and negative except as stated. Past Medical History - Past Medical History Attestation: Yes The following information was validated with the patient. Source: patient, old records reviewed, nursing notes reviewed Medical history: Reports: arthritis, atrial fibrillation, COPD, DVT, pulmonary embolus, thyroid disease, other (Morbid obesity) Surgical history: Reports: other Psychiatric history: Reports: no psych history PLASTERER MAINTENANCE history: Reports: no PLASTERER MAINTENANCE history - Social History Smoking Status: Current every day smoker Smokeless Tobacco Status: No Alcohol use: Reports: none Drug use: Reports: none Physical Exam - General Limitations: physical limitation General appearance: alert, in no apparent distress - Head Head exam: atraumatic, normocephalic, normal inspection - Eye Eye exam: Present: normal appearance, PERRL, EOMI. Absent: scleral icterus, conjunctival injection - ENT ENT exam: normal exam, normal oropharynx, mucous membranes moist - Neck Neck exam: Present: normal inspection, full ROM, trachea midline. Absent: tenderness, meningismus, lymphadenopathy - Chest Chest inspection: Present: normal inspection, symmetric chest wall rise - Respiratory Respiratory exam: Present: normal lung sounds bilaterally. Absent: respiratory distress, wheezes, prolonged expiratory phase - Cardiovascular Cardiovascular exam: Present: regular rate, normal rhythm, normal heart sounds. Absent: tachycardia - Abdominal Exam Abdominal exam: Present: soft, Non-Tender, normal bowel sounds, other (Yeasty erythema in the intertriginous folds. Patient has stool caked all over her bottom and perineum.). Absent: tenderness, distention, guarding, rebound, rigidity - Extremities Exam Extremities exam: Present: full ROM, tenderness, normal capillary refill, pedal edema, calf tenderness, other (Patient has some erythema and warmth over the lateral aspect of the right calf. Over the proximal lateral aspect she has a linear area of blistering. This appears that is likely from pressure against the chair she sits in.) - Expanded Lower Extremity Exam Neurovascular/Tendon exam: Present: normal capillary refill Gait: not tested/not observed - Neurological Exam Neurological exam: Present: alert, oriented X3 - Psychiatric Psychiatric exam: Present: normal affect, normal mood - Skin Skin exam: Present: warm, dry, normal color, other (Multiple areas of intertrigo. Patient has a strong odor of yeast.) Course Course Narrative: As discussed with the patient with regard to her home situation, lack of assistance and possible need for respiratory snf care. She states "I ain't going to no snf". She states she needs to just be in the hospital for couple days on Lasix and for her "cellulitis and gaulding". 1455: Care has been discussed with Dr. Cagle with regard to inpatient observation this patient and the need for social service consultation. To allow this to possibly get started today orders have been obtained while we await return of lab and imaging. Vital Signs Temperature 97.8 F 02/15/19 14:15 Pulse Rate 89 02/15/19 14:15 Respiratory Rate 18 02/15/19 14:15 Blood Pressure 133/82 02/15/19 14:15 O2 Sat by Pulse Oximetry 93 02/15/19 14:15 Temperature 98.5 F 02/15/19 19:22 Pulse Rate 91 02/15/19 19:22 Respiratory Rate 16 02/15/19 21:42 Blood Pressure 107/66 02/15/19 19:22 O2 Sat by Pulse Oximetry 96 02/15/19 21:42 Oxygen Delivery Oxygen Delivery Room Air Medical Decision Making - Medical Records Medical records reviewed: Yes I reviewed the patient's medical records. - Lab Data Lab results reviewed: Yes I reviewed the patient's lab results. Result diagrams: 02/15/19 14:59 02/15/19 14:59 Lab Results 02/15/19 02/15/19 02/15/19 Range/Units 14:35 14:59 14:59 WBC 9.9 (4.3-11.1) K/mcL RBC 4.73 (3.82-4.97) M/mcL Hgb 14.0 (11.5-15.4) g/dL Hct 43.8 (35.3-44.9) % MCV 92.6 (83.0-100.0) fL MCH 29.6 (28.0-33.3) pg MCHC 32.0 (31.6-35.5) g/dL RDW 13.9 (11.5-14.5) % Plt Count 240 (140-400) K/mcL MPV 12.2 (9.4-12.4) fL Immature Gran % 0.6 (0-4) % Seg Neutrophils % 72.6 % Lymphocytes % 19.7 % Monocytes % 5.9 % Eosinophils % 0.9 % Basophils % 0.3 % Neutrophils # 7.2 (1.6-8.9) K/mcL Lymphocytes # 2.0 (0.6-4.6) K/mcL Monocytes # 0.6 (0.0-1.3) K/mcL Eosinophils # 0.1 (0.0-0.6) K/mcL Basophils # 0.0 (0.0-0.2) K/mcL Sodium 138 (136-145) mEq/L Potassium 4.1 (3.5-5.1) mEq/L Chloride 98 (98-107) mEq/L Carbon Dioxide 33 H (23-29) mEq/L BUN 8 (8-23) mg/dL Creatinine 0.63 (0.60-1.20) mg/dL Est GFR ( Amer) > 60 (> 60) Est GFR (Non-Af Amer) > 60 (> 60) BUN/Creatinine Ratio 13 (6-26) Glucose 94 (70-105) mg/dL POC Glucose 92 (70-99) mg/dL Calculated Osmolality 284 (280-300) Lactic Acid (0.5-2.2) mmol/L Calcium 8.8 (8.6-10.3) mg/dL Total Bilirubin (0.3-1.0) mg/dL Direct Bilirubin (0.0-0.2) mg/dL Indirect Bilirubin (0.0-1.2) mg/dL AST (13-39) Units/L ALT (7-52) Units/L Alkaline Phosphatase (34-104) Units/L B-Natriuretic Peptide (Less than 100) pg/mL Serum Total Protein (6.4-8.9) g/dL Albumin (3.5-5.7) g/dL Globulin (2.4-3.5) g/dL Albumin/Globulin Ratio (1.1-2.2) Urine Color (Yellow) Urine Clarity (Clear) Urine pH (5.0-8.0) pH Units Ur Specific [place] (1.010-1.025) Urine Protein (Neg-Trace) mg/dL Urine Glucose (UA) (Normal) mg/dL Urine Ketones (Negative) mg/dL Urine Blood (Negative) Urine Nitrite (Negative) Urine Bilirubin (Negative) Urine Urobilinogen (Normal) mg/dL Ur Leukocyte Esterase (Negative) Urine Microscopic RBC (0-3) per hpf Urine Microscopic WBC (0-3) per hpf Ur Squamous Epith Cells (None-Few) per lpf Urine Bacteria (None-Few) per hpf Urine Mucus (Few) Ur Culture Indicated? (NO) Digoxin (0.8-2.0) ng/mL 02/15/19 02/15/19 02/15/19 Range/Units 14:59 14:59 14:59 WBC (4.3-11.1) K/mcL RBC (3.82-4.97) M/mcL Hgb (11.5-15.4) g/dL Hct (35.3-44.9) % MCV (83.0-100.0) fL MCH (28.0-33.3) pg MCHC (31.6-35.5) g/dL RDW (11.5-14.5) % Plt Count (140-400) K/mcL MPV (9.4-12.4) fL Immature Gran % (0-4) % Seg Neutrophils % % Lymphocytes % % Monocytes % % Eosinophils % % Basophils % % Neutrophils # (1.6-8.9) K/mcL Lymphocytes # (0.6-4.6) K/mcL Monocytes # (0.0-1.3) K/mcL Eosinophils # (0.0-0.6) K/mcL Basophils # (0.0-0.2) K/mcL Sodium (136-145) mEq/L Potassium (3.5-5.1) mEq/L Chloride (98-107) mEq/L Carbon Dioxide (23-29) mEq/L BUN (8-23) mg/dL Creatinine (0.60-1.20) mg/dL Est GFR ( Amer) (> 60) Est GFR (Non-Af Amer) (> 60) BUN/Creatinine Ratio (6-26) Glucose (70-105) mg/dL POC Glucose (70-99) mg/dL Calculated Osmolality (280-300) Lactic Acid 1.4 (0.5-2.2) mmol/L Calcium (8.6-10.3) mg/dL Total Bilirubin 0.6 (0.3-1.0) mg/dL Direct Bilirubin 0.2 (0.0-0.2) mg/dL Indirect Bilirubin 0.4 (0.0-1.2) mg/dL AST 8 L (13-39) Units/L ALT 6 L (7-52) Units/L Alkaline Phosphatase 78 (34-104) Units/L B-Natriuretic Peptide 116 H (Less than 100) pg/mL Serum Total Protein 7.3 (6.4-8.9) g/dL Albumin 3.2 L (3.5-5.7) g/dL Globulin 4.1 H (2.4-3.5) g/dL Albumin/Globulin Ratio 0.8 L (1.1-2.2) Urine Color (Yellow) Urine Clarity (Clear) Urine pH (5.0-8.0) pH Units Ur Specific [place] (1.010-1.025) Urine Protein (Neg-Trace) mg/dL Urine Glucose (UA) (Normal) mg/dL Urine Ketones (Negative) mg/dL Urine Blood (Negative) Urine Nitrite (Negative) Urine Bilirubin (Negative) Urine Urobilinogen (Normal) mg/dL Ur Leukocyte Esterase (Negative) Urine Microscopic RBC (0-3) per hpf Urine Microscopic WBC (0-3) per hpf Ur Squamous Epith Cells (None-Few) per lpf Urine Bacteria (None-Few) per hpf Urine Mucus (Few) Ur Culture Indicated? (NO) Digoxin (0.8-2.0) ng/mL 02/15/19 02/15/19 Range/Units 14:59 16:40 WBC (4.3-11.1) K/mcL RBC (3.82-4.97) M/mcL Hgb (11.5-15.4) g/dL Hct (35.3-44.9) % MCV (83.0-100.0) fL MCH (28.0-33.3) pg MCHC (31.6-35.5) g/dL RDW (11.5-14.5) % Plt Count (140-400) K/mcL MPV (9.4-12.4) fL Immature Gran % (0-4) % Seg Neutrophils % % Lymphocytes % % Monocytes % % Eosinophils % % Basophils % % Neutrophils # (1.6-8.9) K/mcL Lymphocytes # (0.6-4.6) K/mcL Monocytes # (0.0-1.3) K/mcL Eosinophils # (0.0-0.6) K/mcL Basophils # (0.0-0.2) K/mcL Sodium (136-145) mEq/L Potassium (3.5-5.1) mEq/L Chloride (98-107) mEq/L Carbon Dioxide (23-29) mEq/L BUN (8-23) mg/dL Creatinine (0.60-1.20) mg/dL Est GFR ( Amer) (> 60) Est GFR (Non-Af Amer) (> 60) BUN/Creatinine Ratio (6-26) Glucose (70-105) mg/dL POC Glucose (70-99) mg/dL Calculated Osmolality (280-300) Lactic Acid (0.5-2.2) mmol/L Calcium (8.6-10.3) mg/dL Total Bilirubin (0.3-1.0) mg/dL Direct Bilirubin (0.0-0.2) mg/dL Indirect Bilirubin (0.0-1.2) mg/dL AST (13-39) Units/L ALT (7-52) Units/L Alkaline Phosphatase (34-104) Units/L B-Natriuretic Peptide (Less than 100) pg/mL Serum Total Protein (6.4-8.9) g/dL Albumin (3.5-5.7) g/dL Globulin (2.4-3.5) g/dL Albumin/Globulin Ratio (1.1-2.2) Urine Color Light Yellow (Yellow) Urine Clarity Clear (Clear) Urine pH 5.5 (5.0-8.0) pH Units Ur Specific [place] <= 1.005 L (1.010-1.025) Urine Protein Negative (Neg-Trace) mg/dL Urine Glucose (UA) Normal (Normal) mg/dL Urine Ketones Negative (Negative) mg/dL Urine Blood Small H (Negative) Urine Nitrite Positive A (Negative) Urine Bilirubin Negative (Negative) Urine Urobilinogen Normal (Normal) mg/dL Ur Leukocyte Esterase Trace H (Negative) Urine Microscopic RBC 0-3 (0-3) per hpf Urine Microscopic WBC 3-5 H (0-3) per hpf Ur Squamous Epith Cells Few (None-Few) per lpf Urine Bacteria Few (None-Few) per hpf Urine Mucus Few (Few) Ur Culture Indicated? YES A (NO) Digoxin 1.2 (0.8-2.0) ng/mL - Radiology Data Radiology results reviewed: Yes I reviewed the patient's radiology results. Single view chest x-ray is performed. This does not demonstrate evidence for infiltrate, effusion, pneumothorax, foreign body or heart failure. The cardiac silhouette is enlarged. I do not see abnormality to the osseous structures of the chest. This is on my interpretation. Impressions Chest X-Ray 02/15/19 15:22 IMPRESSION: Mild pulmonary vascular congestion. D/ / Mojgan Kirby MD / Mojgan Kirby MD Interpreting Provider: Mojgan Kirby MD
[2019-02-15] MEDS ORDERED: 0.9 % Sodium Chloride 1,000 ML IVC SCH ×2 (14:30→15:20)
[2019-02-15 15:08] LABS: Basophils % 0.3 %; Eosinophils # 0.1 K/mcL (0.0-0.6); Eosinophils % 0.9 %; Hematocrit 43.8 % (35.3-44.9); Immature Granulocytes % 0.6 % (0-4); Lymphocytes % 19.7 %; Mean Corpuscular Hemoglobin 29.6 pg (28.0-33.3); Mean Corpuscular Volume 92.6 fL (83.0-100.0); Mean Platelet Volume 12.2 fL (9.4-12.4); Monocytes # 0.6 K/mcL (0.0-1.3); Monocytes % 5.9 %; Neutrophils # 7.2 K/mcL (1.6-8.9); Platelet Count 240 K/mcL (140-400); Red Blood Count 4.73 M/mcL (3.82-4.97); Red Cell Distribution Width 13.9 % (11.5-14.5); Segmented Neutrophils % 72.6 %; White Blood Count 9.9 K/mcL (4.3-11.1)
[2019-02-15] MEDS ORDERED: Ondansetron ODT 4 MG TAB.RAPDIS SL PRN (15:20)
[2019-02-15] MEDS ORDERED: Naloxone 0.4 MG/ML INJ IVP PRN (15:20)
[2019-02-15] MEDS ORDERED: MOM Conc 10 ML UD.LIQ PO PRN (15:20)
[2019-02-15] MEDS ORDERED: Mag Hydrox/Al Hydrox/Simeth 30 ML UDC PO PRN (15:20)
[2019-02-15 15:32] LABS: BUN/Creatinine Ratio 13 (6-26); Blood Urea Nitrogen 8 mg/dL (8-23); Calcium 8.8 mg/dL (8.6-10.3); Carbon Dioxide 33 mEq/L (23-29); Chloride 98 mEq/L (98-107); Glucose 94 mg/dL (70-105); Osmolality,Calculated 284 (280-300); Potassium 4.1 mEq/L (3.5-5.1); Sodium 138 mEq/L (136-145); eGFR For African Americans > 60 (> 60); eGFR For Non-African Americans > 60 (> 60)
[2019-02-15 15:33] LABS: Albumin 3.2 g/dL (3.5-5.7); Albumin/Globulin Ratio 0.8 (1.1-2.2); Bilirubin,Direct 0.2 mg/dL (0.0-0.2); Bilirubin,Indirect 0.4 mg/dL (0.0-1.2); Bilirubin,Total 0.6 mg/dL (0.3-1.0); Globulin 4.1 g/dL (2.4-3.5); Total Protein 7.3 g/dL (6.4-8.9)
[2019-02-15 16:52] LABS: Bilirubin,Urine Negative (Negative); Blood,Urine Small (Negative); Clarity,Urine Clear (Clear); Glucose,Urine (UA) Normal (Normal); Ketones,Urine Negative (Negative); Leukocyte Esterase,Urine Trace (Negative); Nitrite,Urine Positive (Negative); PH,Urine 5.5 pH Units (5.0-8.0); Protein,Urine Negative (Neg-Trace); Specific Gravity,Urine <= 1.005 (1.010-1.025); Urobilinogen,Urine Normal (Normal)
[2019-02-15 16:54] LABS: Color,Urine Light Yellow (Yellow)
[2019-02-15 17:00] LABS: Bacteria,Urine Few per hpf (None-Few); Mucus,Urine Few (Few); RBC,Urine 0-3 per hpf (0-3); Squamous Epithelial Cell,Urine Few per lpf (None-Few)
[2019-02-15] MEDS ORDERED: *HR* Enoxaparin 30 MG/0.3 ML SYRINGE SQ SCH (19:00)
--- NOTE | 2019-02-15 19:09 | Internal Med History&Physical ---
Date of Encounter: 02/15/19 Time of Encounter: 18:25 Assessment and Plan (1) Cellulitis Current visit: Yes Status: Acute She has been started on IV vancomycin. Lactobacillus will be given Qualifiers: Site of cellulitis: extremity Site of cellulitis of extremity: lower extremity Laterality: right Qualified Code(s): L03.115 - Cellulitis of right lower limb (2) Hypertension Current visit: Yes Status: Chronic Continue Lasix and Toprol. Qualifiers: Hypertension type: essential hypertension Qualified Code(s): I10 - Essential (primary) hypertension (3) Hypothyroidism Current visit: No Status: Chronic Continue Synthroid. Check TSH in a.m. Qualifiers: Hypothyroidism type: unspecified Qualified Code(s): E03.9 - Hypothyroidism, unspecified (4) COPD (chronic obstructive pulmonary disease) Current visit: No Status: Chronic She will be given NicoDerm patch. Symbicort/Advair has been ordered. Pro Air MDI will be available as needed. Qualifiers: COPD type: unspecified COPD Qualified Code(s): J44.9 - Chronic obstructive pulmonary disease, unspecified (5) Vitamin D deficiency Current visit: No Status: Chronic Check vitamin D level in a.m. (6) B12 deficiency Current visit: No Status: Chronic Check B12 level in a.m. (7) Weakness Current visit: Yes Status: Acute PT and OT evaluations will be done. (8) Gout Current visit: No Status: Acute Continue allopurinol. Check uric acid level in a.m. Qualifiers: Gout site: unspecified site Gout etiology: unspecified cause Chronicity: chronic Presence of tophus: without tophus Qualified Code(s): M1A.9XX0 - Chronic gout, unspecified, without tophus (tophi) (9) Atrial fibrillation Current visit: No Status: Chronic She has refused Xarelto. Tinea Toprol XL and Lanoxin for rate control. Qualifiers: Atrial fibrillation type: paroxysmal Qualified Code(s): I48.0 - Paroxysmal atrial fibrillation (10) History of pulmonary embolus (PE) Current visit: No Status: Chronic She has refused Xarelto due to history of vaginal bleeding. (11) Candidal intertrigo Current visit: Yes Status: Acute Oral Diflucan and topical Nizoral will be given. (12) Weight loss Current visit: Yes Status: Acute Weight has decreased approximately 120 pounds in the past [address] of chest abdomen and pelvis will be done to further evaluate. Internal Medicine - H&P: HPI Chief complaint: Leg edema with cellulitis Admitted From: Emergency Dept Plans for Post Hospital Care: Home History of present illness: Ms. Wong is a 59 year old female who came to emergency room by EMS reporting she had increased right leg swelling with weeping edema and cellulitis onset approximately one week earlier. She states she has been using Lasix sporadically since she has difficulty ambulating to the bathroom to urinate. She was evaluated in emergency room and was found to have significant lack of overall hygiene, right leg cellulitis and significant intertrigo in skin folds with denuded skin. She had right upper lateral calf denuded skin with surrounding induration. She was admitted to Medr floor for ongoing care needs. Past Med Surg Social Fam HX - Past Medical History Medical history: arthritis, atrial fibrillation, COPD, DVT, pulmonary embolus, thyroid disease, other Additional medical history: home O2, BIPAP Psychiatric history: no psych history - Past Surgical History Surgical History: other Additional surgical history: nasal sx - Social History Smoking Status: Current every day smoker Packs per day: 1 Smokeless Tobacco Status: No Alcohol use: none Drug use: none - Family History Sister Adopted: Lawson: Shannon Age: 63 Family Member Ethnicity: Non- Living Status: Still Living Hx Family Cardiac Disorders: Yes ([place]) Hx Family Respiratory Disorders: Yes Hx Family Cancer: Yes (breast cancer) Hx Family GI Disorders: No Hx Family Genitourinary Disorders: No Hx Family Endocrine Disorder: Yes (DM) Hx Family Musculoskeletal Disorders: Yes Hx Family Neuromuscular Disorders: No Hx Family Neurologic Disorders: No Hx Family HEENT Disorders: No Hx Family Autoimmune Disorders: No Hx Family Reproductive Disorders: No Hx Family Psychosocial Disorders: No Hx Family Medical Disorders: No Brother Hx Family Cardiac Disorders: Yes ([place]) Hx Family Endocrine Disorder: Yes (DM) Internal Medicine - H&P: Meds Albuterol Sulfate [Proair Hfa] 2 puff IH Q4H PRN 08/15/15 [History] Levothyroxine [Synthroid] 50 mcg PO QAM 08/15/15 [History] Allopurinol [Zyloprim] 100 mg PO DAILY 11/06/16 [History] Fluticasone/Salmeterol [Advair 250-50 Diskus] 1 each IH BID 07/15/17 [History] Nystatin Cream [Mycostatin Cream] 1 appl TP BID 07/15/17 [History] Nystatin POWDER [Nystop] 1 appl TP BID 07/15/17 [History] Potassium Chloride [K-Tab ER] 20 meq PO QID 07/15/17 [History] Tiotropium [Spiriva] 18 mcg IH 0700 07/15/17 [History] Albuterol Neb [Proventil Neb] 2.5 mg IH TID 07/26/17 [History] Cholecalciferol (D-3) [Vitamin D] 1,000 unit PO DAILY 07/26/17 [History] Oxygen 3 l NS AD 07/26/17 [History] Cyanocobalamin (B-12) [Vitamin B12] 1,000 mcg PO DAILY #30 tablet 08/03/17 [Rx] Cyclobenzaprine [Flexeril] 10 mg PO BID PRN #15 tablet 08/03/17 [Rx] Gabapentin [Neurontin] 600 mg PO TID 02/08/18 [History] Digoxin [Lanoxin] 0.25 mg PO DAILY 30 Days #30 tablet 02/10/18 [Rx] Metoprolol XL (24 HR) Succ [Toprol Xl] 50 mg PO DAILY 30 Days #30 tab.er.24h 02/10/18 [Rx] Furosemide [Lasix] 80 mg PO DAILY 02/17/18 [History] HYDROcodone/Acet 7.5/325 mg [[place] 7.5-325 mg] 1 tab PO Q6H PRN 02/17/18 [History] Allergy/AdvReac Type Severity Reaction Status Date / Time adhesive tape Allergy Rash Verified 02/09/18 15:57 lisinopril AdvReac Cough Verified 02/09/18 15:57 All Systems PM: A 10-system review of systems was performed and is negative for pertinent findings except as documented above in the HPI. Review of systems: Review of systems from her July [address] [facility] hospitalization were reviewed and revised as below. Gen.: Her weight has decreased from 171.6 kg on 07/29/2017 to 136.4 kg January 2018 to 115.666 kg today. She states her weight loss was intentional. Cardiovascular: She has history of hypertension and reported pulmonary embolus February 2013. Echocardiogram 07/27/2017 showed LVEF of 40-45% which was decreased from LVEF of 55% on December 2014 TTE. LAE was 4.0 cm. Right atrium was not well visualized because of body habitus. There appeared to be mild aortic sclerosis. She has history of atrial fibrillation but has refused to take Xarelto for several months due to history of vaginal bleeding. Respiratory: She has smoked since age 3 up to 1-1/2 packs per day. She had PFTs in the past and was told she had COPD. She wears oxygen at bedtime and when necessary during the daytime. She has KB and wears BiPAP at bedtime. GI: She denies disorders of her liver gallbladder or exocrine pancreas. : No history of hematuria dysuria or kidney stones. Neurologic: She denies large distribution strokes or seizures. Endocrine: She has hypothyroidism but no known diabetes or hyperlipidemia. TSH was normal at 2.176 during her recent [facility] hospitalization. Hematology/oncology: She denies blood disorders cancers or anemia. Psychiatric: She denies anxiety depression or other mental health issues Musk skeletal: She has DJD and gout but no known osteoporosis. - Constitutional Vitals: Temp Pulse Resp BP Pulse Ox 98.5 F 88 18 108/70 93 02/15/19 17:06 02/15/19 17:06 02/15/19 17:06 02/15/19 17:06 02/15/19 17:06 Exam: Gen.: She is a well-developed obese female lying in bed who appears in mild distress. She complains of pain in her back/gluteal area at rest. She complains of pain in her right leg on movement of the leg. HEENT: Head is atraumatic and normocephalic. Eyes: EOMI. There is no scleral icterus. Mouth: Mucosa is moist. Neck: Supple and nontender. There is no thyromegaly or adenopathy noted. Heart: Irregularly irregular without murmurs or gallops. Rate is approximately 100/m. Lungs: No wheezes or crackles are heard. Abdomen: She has a massive pannus that his extends to her knees while she is lying in a semi-recumbent position. She has intertrigo under her breasts bilaterally. She has severe intertrigo/dermatitis under the large abdominal pannus in skin folds. Extremities: She has chronic venous stasis pigmentation bilaterally, more on the left than the right. There is 0 to trace edema of the left lower leg. Dorsalis pedis and posterior tibial pulses on the left foot are trace palpable. The right leg shows 1-2+ edema and is slightly warm to touch. There is diffuse erythema involving most of the calf especially the lateral portion. She has an area of denuded skin with dermal edema and an oblique pattern across the right upper lateral calf. Dorsalis pedis and posterior tibial pulses on the right foot are nonpalpable. She has tinea pedis bilaterally. Neurologic: Mental status: She is talkative and a good historian. Cranial nerves: Smile is symmetric. Forehead wrinkles bilaterally. Tongue protrudes midline. EOMI. Motor: There is no pronator drift. Cerebellar: Finger to nose is intact bilaterally. Skin: Widespread intertrigo in abdominal folds and in right leg skinfold. Internal Med - H&P Results - Labs CBC & Chem 7: 02/15/19 14:59 02/15/19 14:59 Labs: Short CBC 02/15/19 Range/Units 14:59 WBC 9.9 (4.3-11.1) K/mcL Hgb 14.0 (11.5-15.4) g/dL Hct 43.8 (35.3-44.9) % Plt Count 240 (140-400) K/mcL Neutrophils # 7.2 (1.6-8.9) K/mcL BMP 02/15/19 14:59 Sodium 138 Potassium 4.1 Chloride 98 Carbon Dioxide 33 H BUN 8 Creatinine 0.63 Glucose 94 Calcium 8.8 Liver Function 02/15/19 Range/Units 14:59 Total Bilirubin 0.6 (0.3-1.0) mg/dL Direct Bilirubin 0.2 (0.0-0.2) mg/dL AST 8 L (13-39) Units/L ALT 6 L (7-52) Units/L Alkaline Phosphatase 78 (34-104) Units/L Albumin 3.2 L (3.5-5.7) g/dL Urine 02/15/19 Range/Units 16:40 Urine Color Light Yellow (Yellow) Urine Clarity Clear (Clear) Urine pH 5.5 (5.0-8.0) pH Units Ur Specific [place] <= 1.005 L (1.010-1.025) Urine Protein Negative (Neg-Trace) mg/dL Urine Glucose (UA) Normal (Normal) mg/dL - Impressions ITS Impressions Chest X-Ray 02/15/19 15:22 IMPRESSION: Mild pulmonary vascular congestion. D/ / Mojgan Kirby MD / Mojgan Kirby MD Interpreting Provider: Mojgan Kirby MD
[2019-02-15] MEDS: Furosemide 40 MG/4 ML VIAL IVP SCH ×2 (21:24→21:31)
[2019-02-15] MEDS: *HR* HYDROcodone/Acet 7.5/325 mg TABLET PO PRN (21:25)
[2019-02-15] MEDS: Ketoconazole 2% CRM 15 GM TUBE TP SCH (21:25)
[2019-02-15] MEDS: Gabapentin 300 MG CAPSULE PO SCH (21:25)
[2019-02-15] MEDS: Budesonide/Formoterol 160/4.5 1 PUFF INH IH SCH (21:42)
[2019-02-16] MEDS: *HR* Enoxaparin 40 MG/0.4 ML SYRINGE SQ SCH (05:30)
[2019-02-16] MEDS: Levothyroxine 25 MCG TABLET PO SCH (05:30)
[2019-02-16] MEDS: *HR* HYDROcodone/Acet 7.5/325 mg TABLET PO PRN ×2 (05:30→20:06)
[2019-02-16 05:47] LABS: Magnesium 1.8 mg/dL (1.6-2.6); Uric Acid 5.3 mg/dL (2.3-7.6)
[2019-02-16 06:00] LABS: Thyroid Stimulating Hormone 1.494 mcIU/mL (0.340-5.600)
[2019-02-16] MEDS ORDERED: Metoprolol XL (24 HR) Succ 50 MG TAB.ER.24H PO SCH (09:00)
[2019-02-16 09:15] LABS: Vitamin B12 167 pg/mL (250-1100)
[2019-02-16] MEDS: Ketoconazole 2% CRM 15 GM TUBE TP SCH ×2 (09:16→20:08)
[2019-02-16] MEDS: *HR* Digoxin 0.25 MG TABLET PO SCH (09:16)
[2019-02-16] MEDS: Cholecalciferol (D-3) 1,000 UNIT (25MCG) TABLET PO SCH (09:16)
[2019-02-16] MEDS: Gabapentin 300 MG CAPSULE PO SCH ×3 (09:16→20:06)
[2019-02-16] MEDS: Furosemide 40 MG/4 ML VIAL IVP SCH (09:16)
[2019-02-16] MEDS ORDERED: Cyanocobalamin (B-12) 1,000 MCG/ML VIAL IM ONE (09:54)
[2019-02-16] MEDS: Budesonide/Formoterol 160/4.5 1 PUFF INH IH SCH ×2 (10:14→21:22)
[2019-02-16] MEDS: Tiotropium 18 MCG inhalation IH SCH (10:14)
--- NOTE | 2019-02-16 10:53 | Internal Med Progress Note ---
Date of Encounter: 02/16/19 Time of Encounter: 10:25 - Assessment and plan (1) Cellulitis Current Visit: Yes Status: Acute Assessment and plan: February 16. Continue IV vancomycin with lactobacillus. Qualifiers: Site of cellulitis: extremity Site of cellulitis of extremity: lower extremity Laterality: right Qualified Code(s): L03.115 - Cellulitis of right lower limb (2) Hypertension Current Visit: Yes Status: Chronic Assessment and plan: February 16. Blood pressure borderline low. Hold Toprol-XL. Continue IV L asix daily. Qualifiers: Hypertension type: essential hypertension Qualified Code(s): I10 - Essential (primary) hypertension (3) Hypothyroidism Current Visit: No Status: Chronic Assessment and plan: February 16. TSH normal at 1.494. Continue present dose Synthroid. Qualifiers: Hypothyroidism type: unspecified Qualified Code(s): E03.9 - Hypothyroidism, unspecified (4) COPD (chronic obstructive pulmonary disease) Current Visit: No Status: Chronic Assessment and plan: February 16. Rx NicoDerm patch. Qualifiers: COPD type: unspecified COPD Qualified Code(s): J44.9 - Chronic obstructive pulmonary disease, unspecified (5) Vitamin D deficiency Current Visit: No Status: Chronic Assessment and plan: February 10. Vitamin D level pending (6) B12 deficiency Current Visit: No Status: Chronic Assessment and plan: February 10. Vitamin B12 level low at 167. Rx B12 IM and start oral supplement. (7) Weakness Current Visit: Yes Status: Acute Assessment and plan: February 16. PT and OT evaluations have been ordered. (8) Gout Current Visit: No Status: Acute Assessment and plan: February 16. Uric acid level WNL at 5.3. Continue present dose allopurinol. Qualifiers: Gout site: unspecified site Gout etiology: unspecified cause Chronicity: chronic Presence of tophus: without tophus Qualified Code(s): M1A.9XX0 - Chronic gout, unspecified, without tophus (tophi) (9) Atrial fibrillation Current Visit: No Status: Chronic Assessment and plan: February 16. Continue Lanoxin for rate control. Hold Toprol-XL due to hypotension. She has refused Xarelto due to history of vaginal bleeding. Qualifiers: Atrial fibrillation type: paroxysmal Qualified Code(s): I48.0 - Paroxysmal atrial fibrillation (10) History of pulmonary embolus (PE) Current Visit: No Status: Chronic Assessment and plan: . She has refused Xarelto due to vaginal bleeding. Continue Lovenox for DVT prophylaxis. (11) Candidal intertrigo Current Visit: Yes Status: Acute Assessment and plan: February 16. Continue topical ketoconazole. Diflucan has been ordered. (12) Weight loss Current Visit: Yes Status: Acute Assessment and plan: February 16. CT scan of abdomen, chest, and pelvis was generally unremarkable. TSH was WNL at 1.494. Continue to monitor. - Subjective Interval history: February 16. She has no new complaints and feels better. - Constitutional Vitals: Temp Pulse Resp BP Pulse Ox 97.7 F 85 16 86/43 96 02/16/19 10:02/16/19 10:22 02/16/19 10:22 02/16/19 10:02/16/19 10:22 Exam: She is sitting in chair at bedside resting comfortably. Her affect is overall cheerful. There is decreased edema of the right leg. Erythema is minimally changed. Intertrigo appears unchanged. I reviewed her labs, medications, and CT report. Internal Medicine: Result - Labs CBC & Chem 7: 02/15/19 14:59 02/15/19 14:59 Labs: Short CBC 02/15/19 Range/Units 14:59 WBC 9.9 (4.3-11.1) K/mcL Hgb 14.0 (11.5-15.4) g/dL Hct 43.8 (35.3-44.9) % Plt Count 240 (140-400) K/mcL Neutrophils # 7.2 (1.6-8.9) K/mcL BMP 02/15/19 14:59 Sodium 138 Potassium 4.1 Chloride 98 Carbon Dioxide 33 H BUN 8 Creatinine 0.63 Glucose 94 Calcium 8.8 Liver Function 02/15/19 Range/Units 14:59 Total Bilirubin 0.6 (0.3-1.0) mg/dL Direct Bilirubin 0.2 (0.0-0.2) mg/dL AST 8 L (13-39) Units/L ALT 6 L (7-52) Units/L Alkaline Phosphatase 78 (34-104) Units/L Albumin 3.2 L (3.5-5.7) g/dL Urine 02/15/19 Range/Units 16:40 Urine Color Light Yellow (Yellow) Urine Clarity Clear (Clear) Urine pH 5.5 (5.0-8.0) pH Units Ur Specific [place] <= 1.005 L (1.010-1.025) Urine Protein Negative (Neg-Trace) mg/dL Urine Glucose (UA) Normal (Normal) mg/dL - ABG Interpretation ABG results: PT/INR, D-dimer D-Dimer 528 ng/mLFEU (0-500) H 02/15/19 19:41 - Impressions Impressions Chest X-Ray 02/15/19 15:22 IMPRESSION: Mild pulmonary vascular congestion. D/ / Mojgan Kirby MD / Mojgan Kirby MD Interpreting Provider: Mojgan Kirby MD Abdomen/Pelvis CT 02/15/19 21:15 IMPRESSION: 1. Indeterminate cystic lesion noted near the right glenohumeral joint which is of uncertain etiology measuring 4.8 x 2.5 cm with a Hounsfield attenuation of 9. This is probably benign. Right shoulder MRI could be performed for further evaluation if clinically indicated. 2. No other acute findings in the chest, abdomen, or pelvis. 3. Nodular contour of the liver suggesting underlying cirrhosis. 4. Atherosclerotic disease. 5. 1 mildly enlarged right para-aortic lymph node measuring 1.2 cm, likely benign given the lack of any other adenopathy. 6. Bronchiectasis is noted in the left lower lobe. This is not appreciably changed dating back to 07/27/2017. D/ / 02/15/2019 21:29:08 Marito Frausto MD / terrance Interpreting Provider: Marito Frausto MD Chest CT 02/15/19 21:15 IMPRESSION: 1. Indeterminate cystic lesion noted near the right glenohumeral joint which is of uncertain etiology measuring 4.8 x 2.5 cm with a Hounsfield attenuation of 9. This is probably benign. Right shoulder MRI could be performed for further evaluation if clinically indicated. 2. No other acute findings in the chest, abdomen, or pelvis. 3. Nodular contour of the liver suggesting underlying cirrhosis. 4. Atherosclerotic disease. 5. 1 mildly enlarged right para-aortic lymph node measuring 1.2 cm, likely benign given the lack of any other adenopathy. 6. Bronchiectasis is noted in the left lower lobe. This is not appreciably changed dating back to 07/27/2017. D/ / 02/15/2019 21:29:08 Marito Frausto MD / yg Interpreting Provider: Marito Frausto MD Consult Discharge Plan - Plan Referrals: Kierra Tan CNP [Primary Care Provider] - 1 week
[2019-02-16] MEDS: Lactobacillus 1 EACH CAP.SPRINK PO SCH ×2 (11:00→20:06)
[2019-02-16] MEDS: Fluconazole 100 MG TABLET PO SCH (11:00)
[2019-02-16 11:19] LABS: Vitamin D 25 Hydroxy 46 ng/mL (30-80)
[2019-02-16] MEDS: Nicotine 7 MG PATCH.TD24 TD SCH (14:51)
[2019-02-17] MEDS: Levothyroxine 25 MCG TABLET PO SCH (05:37)
[2019-02-17] MEDS: *HR* Enoxaparin 40 MG/0.4 ML SYRINGE SQ SCH (05:37)
[2019-02-17] MEDS: *HR* HYDROcodone/Acet 7.5/325 mg TABLET PO PRN ×3 (06:29→20:30)
[2019-02-17 07:12] LABS: Basophils # 0.1 K/mcL (0.0-0.2); Basophils % 0.6 %; Eosinophils # 0.1 K/mcL (0.0-0.6); Eosinophils % 1.5 %; Hematocrit 42.8 % (35.3-44.9); Hemoglobin 13.5 g/dL (11.5-15.4); Immature Granulocytes % 0.8 % (0-4); Lymphocytes # 2.8 K/mcL (0.6-4.6); Mean Corpuscular HGB Conc 31.5 g/dL (31.6-35.5); Mean Corpuscular Hemoglobin 29.3 pg (28.0-33.3); Mean Platelet Volume 12.4 fL (9.4-12.4); Monocytes # 0.6 K/mcL (0.0-1.3); Monocytes % 7.2 %; Neutrophils # 5.1 K/mcL (1.6-8.9); Platelet Count 249 K/mcL (140-400); Red Cell Distribution Width 13.8 % (11.5-14.5); Segmented Neutrophils % 57.9 %; White Blood Count 8.7 K/mcL (4.3-11.1)
[2019-02-17 07:40] LABS: BUN/Creatinine Ratio 9 (6-26); Blood Urea Nitrogen 5 mg/dL (8-23); Calcium 8.5 mg/dL (8.6-10.3); Carbon Dioxide 35 mEq/L (23-29); Chloride 97 mEq/L (98-107); Glucose 87 mg/dL (70-105); Osmolality,Calculated 285 (280-300); Potassium 3.5 mEq/L (3.5-5.1); Sodium 139 mEq/L (136-145); eGFR For African Americans > 60 (> 60); eGFR For Non-African Americans > 60 (> 60)
--- NOTE | 2019-02-17 09:22 | Internal Med Progress Note ---
Date of Encounter: 02/17/19 Time of Encounter: 09:15 - Assessment and plan (1) Cellulitis Current Visit: Yes Status: Acute Assessment and plan: February 16. Continue IV vancomycin with lactobacillus. Qualifiers: Site of cellulitis: extremity Site of cellulitis of extremity: lower extremity Laterality: right Qualified Code(s): L03.115 - Cellulitis of right lower limb (2) Hypertension Current Visit: Yes Status: Chronic Assessment and plan: February 16. Blood pressure borderline low. Hold Toprol-XL. Continue IV L asix daily. February 17. Blood pressure improved. Remain off Toprol. Qualifiers: Hypertension type: essential hypertension Qualified Code(s): I10 - Essential (primary) hypertension (3) Hypothyroidism Current Visit: No Status: Chronic Assessment and plan: February 16. TSH normal at 1.494. Continue present dose Synthroid. Qualifiers: Hypothyroidism type: unspecified Qualified Code(s): E03.9 - Hypothyroidism, unspecified (4) COPD (chronic obstructive pulmonary disease) Current Visit: No Status: Chronic Assessment and plan: February 16. Rx NicoDerm patch. Qualifiers: COPD type: unspecified COPD Qualified Code(s): J44.9 - Chronic obstructive pulmonary disease, unspecified (5) Vitamin D deficiency Current Visit: No Status: Chronic Assessment and plan: February 16. Vitamin D level pending February 17. Vitamin D level WNL at 46. Continue present Rx. (6) B12 deficiency Current Visit: No Status: Chronic Assessment and plan: February 10. Vitamin B12 level low at 167. Rx B12 IM and start oral supplement. (7) Weakness Current Visit: Yes Status: Acute Assessment and plan: February 16. PT and OT evaluations have been ordered. (8) Gout Current Visit: No Status: Acute Assessment and plan: February 16. Uric acid level WNL at 5.3. Continue present dose allopurinol. Qualifiers: Gout site: unspecified site Gout etiology: unspecified cause Chronicity: chronic Presence of tophus: without tophus Qualified Code(s): M1A.9XX0 - Chronic gout, unspecified, without tophus (tophi) (9) Atrial fibrillation Current Visit: No Status: Chronic Assessment and plan: February 16. Continue Lanoxin for rate control. Hold Toprol-XL due to hypotension. She has refused Xarelto due to history of vaginal bleeding. Qualifiers: Atrial fibrillation type: paroxysmal Qualified Code(s): I48.0 - Paroxysmal atrial fibrillation (10) History of pulmonary embolus (PE) Current Visit: No Status: Chronic Assessment and plan: . She has refused Xarelto due to vaginal bleeding. Continue Lovenox for DVT prophylaxis. (11) Candidal intertrigo Current Visit: Yes Status: Acute Assessment and plan: February 16. Continue topical ketoconazole. Diflucan has been ordered. (12) Weight loss Current Visit: Yes Status: Acute Assessment and plan: February 16. CT scan of abdomen, chest, and pelvis was generally unremarkable. TSH was WNL at 1.494. Continue to monitor. - Subjective Interval history: February 16. She has no new complaints and feels better. February 17. She has no new complaints. She feels she is making progress. - Constitutional Vitals: Temp Pulse Resp BP Pulse Ox 97.7 F 76 20 114/59 93 02/17/19 06:57 02/17/19 06:57 02/17/19 06:57 02/17/19 06:57 02/17/19 06:57 Exam: She is resting comfortably in bed and appears in no acute distress. There is decreased edema and slight decrease in erythema of her right leg. There is no serous drainage noted. Her affect is overall cheerful. I reviewed her medications and lab results. Internal Medicine: Result - Labs CBC & Chem 7: 02/17/19 06:00 02/17/19 06:00 Labs: Short CBC 02/17/19 Range/Units 06:00 WBC 8.7 (4.3-11.1) K/mcL Hgb 13.5 (11.5-15.4) g/dL Hct 42.8 (35.3-44.9) % Plt Count 249 (140-400) K/mcL Neutrophils # 5.1 (1.6-8.9) K/mcL BMP 02/17/19 06:00 Sodium 139 Potassium 3.5 Chloride 97 L Carbon Dioxide 35 H BUN 5 L Creatinine 0.58 L Glucose 87 Calcium 8.5 L - ABG Interpretation ABG results: PT/INR, D-dimer D-Dimer 528 ng/mLFEU (0-500) H 02/15/19 19:41 Consult Discharge Plan - Plan Referrals: Kierra Tan, RN HEDIS [Primary Care Provider] - 1 week
[2019-02-17] MEDS: Nicotine 7 MG PATCH.TD24 TD SCH (09:56)
[2019-02-17] MEDS: Furosemide 40 MG/4 ML VIAL IVP SCH (09:57)
[2019-02-17] MEDS: *HR* Digoxin 0.25 MG TABLET PO SCH (09:57)
[2019-02-17] MEDS: Cholecalciferol (D-3) 1,000 UNIT (25MCG) TABLET PO SCH (09:57)
[2019-02-17] MEDS: Cyanocobalamin (B-12) 1,000 MCG TABLET PO SCH (09:57)
[2019-02-17] MEDS: Lactobacillus 1 EACH CAP.SPRINK PO SCH ×2 (09:57→20:30)
[2019-02-17] MEDS: Fluconazole 100 MG TABLET PO SCH (09:57)
[2019-02-17] MEDS: Gabapentin 300 MG CAPSULE PO SCH ×3 (09:57→20:30)
[2019-02-17] MEDS: Ketoconazole 2% CRM 15 GM TUBE TP SCH ×2 (09:58→20:31)
[2019-02-17] MEDS: Budesonide/Formoterol 160/4.5 1 PUFF INH IH SCH ×2 (10:40→22:32)
[2019-02-17] MEDS: Tiotropium 18 MCG inhalation IH SCH (10:40)
[2019-02-18 06:25] VITALS: BP 108/61
[2019-02-18] MEDS: Levothyroxine 25 MCG TABLET PO SCH (06:50)
[2019-02-18] MEDS: *HR* HYDROcodone/Acet 7.5/325 mg TABLET PO PRN (06:50)
[2019-02-18] MEDS: *HR* Enoxaparin 40 MG/0.4 ML SYRINGE SQ SCH (06:50)
[2019-02-18] MEDS: Tiotropium 18 MCG inhalation IH SCH (09:31)
[2019-02-18] MEDS: Budesonide/Formoterol 160/4.5 1 PUFF INH IH SCH (09:32)
[2019-02-18] MEDS: *HR* Digoxin 0.25 MG TABLET PO SCH (09:53)
[2019-02-18] MEDS: Fluconazole 100 MG TABLET PO SCH (09:53)
[2019-02-18] MEDS: Gabapentin 300 MG CAPSULE PO SCH (09:53)
[2019-02-18] MEDS: Lactobacillus 1 EACH CAP.SPRINK PO SCH (09:53)
[2019-02-18] MEDS: Cyanocobalamin (B-12) 1,000 MCG TABLET PO SCH (09:53)
[2019-02-18] MEDS: Furosemide 40 MG/4 ML VIAL IVP SCH (09:54)
[2019-02-18] MEDS: Cholecalciferol (D-3) 1,000 UNIT (25MCG) TABLET PO SCH (09:54)
[2019-02-18] MEDS: Ketoconazole 2% CRM 15 GM TUBE TP SCH (09:55)
[2019-02-18] MEDS: Nicotine 7 MG PATCH.TD24 TD SCH (09:55)
--- NOTE | 2019-02-18 10:13 | Discharge Summary ---
Orders not resulted at time of discharge: Pending orders 02/15/19 15:05 Culture,Blood [BC] Stat 02/16/19 04:53 Zinc AM 0400 Date of Encounter: 02/18/19 Time of Encounter: 10:00 - Discharge Diagnosis (1) Cellulitis Priority: Primary Status: Acute Qualifiers: Site of cellulitis: extremity Site of cellulitis of extremity: lower extremity Laterality: right Qualified Code(s): L03.115 - Cellulitis of right lower limb (2) Hypertension Priority: Secondary Status: Chronic Qualifiers: Hypertension type: essential hypertension Qualified Code(s): I10 - Essential (primary) hypertension (3) Hypothyroidism Priority: Secondary Status: Chronic Qualifiers: Hypothyroidism type: unspecified Qualified Code(s): E03.9 - Hypothyroidism, unspecified (4) COPD (chronic obstructive pulmonary disease) Priority: Secondary Status: Chronic Qualifiers: COPD type: unspecified COPD Qualified Code(s): J44.9 - Chronic obstructive pulmonary disease, unspecified (5) Vitamin D deficiency Priority: Secondary Status: Chronic (6) B12 deficiency Priority: Secondary Status: Chronic (7) Weakness Priority: Secondary Status: Acute (8) Gout Priority: Secondary Status: Chronic Qualifiers: Gout site: unspecified site Gout etiology: unspecified cause Chronicity: chronic Presence of tophus: without tophus Qualified Code(s): M1A.9XX0 - Chronic gout, unspecified, without tophus (tophi) (9) Atrial fibrillation Priority: Secondary Status: Chronic Qualifiers: Atrial fibrillation type: paroxysmal Qualified Code(s): I48.0 - Paroxysmal atrial fibrillation (10) History of pulmonary embolus (PE) Priority: Secondary Status: Chronic (11) Candidal intertrigo Priority: Secondary Status: Acute (12) Weight loss Priority: Secondary Status: Acute Hospital course: Ms. Wong is a 59 year old female who came to emergency room by EMS reporting she had increased right leg swelling with weeping edema and cellulitis onset approximately one week earlier. She states she has been using Lasix sporadically since she has difficulty ambulating to the bathroom to urinate. She was evaluated in emergency room and was found to have significant lack of overall hygiene, right leg cellulitis and significant intertrigo in skin folds with denuded skin. She had right upper lateral calf denuded skin with surrounding induration. She was admitted to [facility] floor for ongoing care need s. She was started on IV vancomycin and lactobacillus. There was gradual decrease in the leg erythema and edema. Oral Diflucan and topical Ketoconazole were given with significant improvement in the intertrigo by day of discharge to swing bed. Blood pressure was borderline low so Toprol-XL was discontinued. IV Lasix was given to lessen edema. Vitamin B level returned low at 167. She was given a B12 injection and started on oral supplement. CT of abdomen, chest, and pelvis to evaluate weight loss was generally unremarkable. She had physical therapy and occupational therapy evaluations with ongoing intervention. It was felt she would benefit from swing bed stay for IV antibiotics and ongoing therapy. - Time Spent with Patient Total time spent providing and/or coordinating discharge services: - Discharge Medications Prescriptions: New Vancomycin [Vancocin] 1,250 mg IVPB Q12H mg Nicotine Patch [Nicoderm] 7 mg TD DAILY patch.td24 MOM Conc [MILK OF MAGNESIA conc] 10 ml PO DAILY PRN ud.liq PRN Reason: Constipation Mag Hydrox/Al Hydrox/Simeth [Maalox] 15 ml PO Q6HR PRN udc PRN Reason: Dyspepsia Lactobacillus [Culturelle] 1 each PO BID cap.sprink Ketoconazole 2% CRM [Nizoral Cream] 1 appl TP BID tube Furosemide [Lasix] 40 mg IVP DAILY vial Fluconazole [Diflucan] 200 mg PO DAILY tablet Continued Oxygen 3 l NS AD Cholecalciferol (D-3) [Vitamin D] 1,000 unit PO DAILY Digoxin [Lanoxin] 0.25 mg PO DAILY 30 Days #30 tablet HYDROcodone/Acet 7.5/325 mg [[place] 7.5-325 mg] 1 tab PO Q6H PRN PRN Reason: Pain Levothyroxine [Synthroid] 50 mcg PO QAM Albuterol Sulfate [Proair Hfa] 2 puff IH Q4H PRN PRN Reason: Shortness Of Breath Allopurinol [Zyloprim] 100 mg PO DAILY Tiotropium [Spiriva] 18 mcg IH 0700 Potassium Chloride [K-Tab ER] 20 meq PO QID Fluticasone/Salmeterol [Advair 250-50 Diskus] 1 each IH BID Cyanocobalamin (B-12) [Vitamin B12] 1,000 mcg PO DAILY #30 tablet Cyclobenzaprine [Flexeril] 10 mg PO BID PRN #15 tablet PRN Reason: Muscle Spasm Gabapentin [Neurontin] 600 mg PO TID Discontinued Albuterol Neb [Proventil Neb] 2.5 mg IH TID Metoprolol XL (24 HR) Succ [Toprol Xl] 50 mg PO DAILY 30 Days #30 tab.er.24h Furosemide [Lasix] 80 mg PO DAILY Nystatin POWDER [Nystop] 1 appl TP BID Nystatin Cream [Mycostatin Cream] 1 appl TP BID Home Medications: Albuterol Sulfate [Proair Hfa] 2 puff IH Q4H PRN 08/15/15 [History] Levothyroxine [Synthroid] 50 mcg PO QAM 08/15/15 [History] Allopurinol [Zyloprim] 100 mg PO DAILY 11/06/16 [History] Fluticasone/Salmeterol [Advair 250-50 Diskus] 1 each IH BID 07/15/17 [History] Potassium Chloride [K-Tab ER] 20 meq PO QID 07/15/17 [History] Tiotropium [Spiriva] 18 mcg IH 0700 07/15/17 [History] Cholecalciferol (D-3) [Vitamin D] 1,000 unit PO DAILY 07/26/17 [History] Oxygen 3 l NS AD 07/26/17 [History] Cyanocobalamin (B-12) [Vitamin B12] 1,000 mcg PO DAILY #30 tablet 08/03/17 [Rx] Cyclobenzaprine [Flexeril] 10 mg PO BID PRN #15 tablet 08/03/17 [Rx] Gabapentin [Neurontin] 600 mg PO TID 02/08/18 [History] Digoxin [Lanoxin] 0.25 mg PO DAILY 30 Days #30 tablet 02/10/18 [Rx] HYDROcodone/Acet 7.5/325 mg [[place] 7.5-325 mg] 1 tab PO Q6H PRN 02/17/18 [History] Fluconazole [Diflucan] 200 mg PO DAILY tablet 02/18/19 [Rx] Furosemide [Lasix] 40 mg IVP DAILY vial 02/18/19 [Rx] Ketoconazole 2% CRM [Nizoral Cream] 1 appl TP BID tube 02/18/19 [Rx] Lactobacillus [Culturelle] 1 each PO BID cap.sprink 02/18/19 [Rx] MOM Conc [MILK OF MAGNESIA conc] 10 ml PO DAILY PRN ud.liq 02/18/19 [Rx] Mag Hydrox/Al Hydrox/Simeth [Maalox] 15 ml PO Q6HR PRN udc 02/18/19 [Rx] Nicotine Patch [Nicoderm] 7 mg TD DAILY patch.td24 02/18/19 [Rx] Vancomycin [Vancocin] 1,250 mg IVPB Q12H mg 02/18/19 [Rx] Allergies/Adverse Reactions: Allergy/AdvReac Type Severity Reaction Status Date / Time adhesive tape Allergy Rash Verified 02/09/18 15:57 lisinopril AdvReac Cough Verified 02/09/18 15:57 Date of admission: 02/15/19 19:03 Primary care physician: Kierra Tan CNP Consults: 02/15/19 15:20 Consult to House Wirer [CONS] Routine Reason for SW Consult: EMS reports that the home is in complete disarray. The patient has been unable to take care of herself or base for over a week. Evaluate for possible Adult Protective Services and safety of discharge. 02/15/19 17:55 Consult to House Wirer [CONS] Routine Reason for SW Consult: lives at home with sister. complications from poor hygeine noted. 02/15/19 19:04 Consult to Occupational Therapy [CONS] Routine Comment: Evaluate, develop and implement POC Reason for Consult: Weakness Does patient have active BEDREST order?: No Is patient medically & hemodynamically stable?: Yes Patient assessed for mobility or mobilized this visit?: Yes Consult to Physical Therapy [CONS] Routine Comment: Evaluate, develop and implement POC Reason for Consult: Weakness Does patient have active BEDREST order?: No Is patient medically & hemodynamically stable?: Yes Patient assessed for mobility or mobilized this visit?: Yes - Constitutional Vitals: Temp Pulse Resp BP Pulse Ox 97.7 F 99 16 108/61 97 02/18/19 06:24 02/18/19 06:24 02/18/19 09:33 02/18/19 06:24 02/18/19 09:33 - Patient Status Disposition: Transfer Hospital Swing Bed Condition: Fair - Discharge Instructions - Diet and Activity Activity: as per physical therapy Diet: regular diet
== END 2019-02-18 12:05 | disposition other institution (70) | DRG 603 ==
LOC: INPPIK 14:11 → EMEROOPIK 14:11 → INPPIK 15:54
PROVIDERS: ADMIT Internal Medicine; ATTEND Internal Medicine

== ENCOUNTER 2019-02-18 12:18 | Inpatient (IN) ==
[2019-02-18] MEDS ORDERED: Mag Hydrox/Al Hydrox/Simeth 30 ML UDC PO PRN (13:09)
[2019-02-18] MEDS ORDERED: MOM Conc 10 ML UD.LIQ PO PRN (13:09)
[2019-02-18] MEDS ORDERED: NON-FORMULARY MEDICATION 1 EACH EACH (Oxygen 3 L) NS SCH (13:15)
[2019-02-18] MEDS: *HR* HYDROcodone/Acet 7.5/325 mg TABLET PO PRN ×2 (13:34→22:21)
[2019-02-18] MEDS: Gabapentin 300 MG CAPSULE PO SCH ×2 (16:06→22:22)
[2019-02-18] MEDS: Lactobacillus 1 EACH CAP.SPRINK PO SCH (22:21)
[2019-02-18] MEDS: Budesonide/Formoterol 80/4.5 1 PUFF INH IH SCH (22:58)
[2019-02-19] MEDS: Levothyroxine 25 MCG TABLET PO SCH (05:38)
[2019-02-19] MEDS: *HR* HYDROcodone/Acet 7.5/325 mg TABLET PO PRN ×4 (05:38→23:51)
[2019-02-19] MEDS: Fluconazole 100 MG TABLET PO SCH (09:43)
[2019-02-19] MEDS: Gabapentin 300 MG CAPSULE PO SCH ×3 (09:48→20:17)
[2019-02-19] MEDS: *HR* Digoxin 0.25 MG TABLET PO SCH (09:48)
[2019-02-19] MEDS: Cholecalciferol (D-3) 1,000 UNIT (25MCG) TABLET PO SCH (09:48)
[2019-02-19] MEDS: Cyanocobalamin (B-12) 1,000 MCG TABLET PO SCH (09:49)
[2019-02-19] MEDS: Furosemide 40 MG/4 ML VIAL IVP SCH (09:49)
[2019-02-19] MEDS: Lactobacillus 1 EACH CAP.SPRINK PO SCH ×2 (09:49→20:17)
[2019-02-19] MEDS: Nicotine 7 MG PATCH.TD24 TD SCH (09:49)
[2019-02-19] MEDS: Ketoconazole 2% CRM 15 GM TUBE TP SCH ×3 (09:50→20:17)
[2019-02-19] MEDS: Budesonide/Formoterol 80/4.5 1 PUFF INH IH SCH ×2 (10:32→21:31)
[2019-02-19] MEDS: Tiotropium 18 MCG inhalation IH SCH (10:32)
--- NOTE | 2019-02-19 14:38 | Internal Med Progress Note ---
Date of Encounter: 02/19/19 Time of Encounter: 14:28 - Assessment and plan (1) Cellulitis Current Visit: No Status: Acute Assessment and plan: February 19. Continues to improve. Continue IV vancomycin with lactobacillus. Qualifiers: Site of cellulitis: extremity Site of cellulitis of extremity: lower extremity Laterality: unspecified laterality Qualified Code(s): L03.119 - Cellulitis of unspecified part of limb (2) CHF (congestive heart failure) Current Visit: No Status: Chronic Assessment and plan: February 19. Echocardiogram 07/27/2017 showed LVEF of 40-45%. Diastolic function assessment was limited due to atrial fibrillation. Continue Lanoxin and Lasix. Qualifiers: Heart failure type: unspecified Heart failure chronicity: chronic Qualified Code(s): I50.9 - Heart failure, unspecified (3) Hypothyroidism Current Visit: No Status: Chronic Assessment and plan: February 19. TSH was normal at 1.494 on 02/16/2019. Continue present dose Synthroid. Qualifiers: Qualified Code(s): E03.9 - Hypothyroidism, unspecified (4) Gout Current Visit: No Status: Chronic Assessment and plan: February 19. Uric acid level was WNL at 5.3 on 02/16/2019. Continue present dose allopurinol. Qualifiers: Gout site: unspecified site Gout etiology: unspecified cause Chronicity: chronic Presence of tophus: without tophus Qualified Code(s): M1A.9XX0 - Chronic gout, unspecified, without tophus (tophi) (5) Atrial fibrillation Current Visit: No Status: Chronic Assessment and plan: February 19. Continue Lanoxin for rate control. Toprol-XL was discontinued during acute care stay due to hypotension. She has declined OAC due to history of vaginal bleeding. Qualifiers: Atrial fibrillation type: chronic Qualified Code(s): I48.2 - Chronic atrial fibrillation (6) Candidal intertrigo Current Visit: No Status: Acute Assessment and plan: February 19. Improving. Continue oral Diflucan and topical ketoconazole. (7) Hypertension Current Visit: No Status: Chronic Assessment and plan: February 19. Continue Lasix for heart failure. Blood pressure borderline low during acute care stay and Toprol-XL was discontinued. Qualifiers: Hypertension type: essential hypertension Qualified Code(s): I10 - Essential (primary) hypertension (8) Weight loss Current Visit: No Status: Acute Assessment and plan: February 19. TSH was normal at 1.494 during acute care stay. CT of chest abdomen and pelvis showed no worrisome pathology. (9) B12 deficiency Current Visit: No Status: Chronic Assessment and plan: February 19. She received B12 IM in acute-care followed by initiation of oral B12 supplement. Continue present Rx. (10) Weakness Current Visit: No Status: Acute Assessment and plan: February 19. Continue PT/OT intervention. - Subjective Interval history: February 19. She was hospitalized in acute-care February 15 after presen ting with weeping edema and cellulitis of her legs. She was given IV vancomycin lactobacillus, IV diuretics, and oral and topical antifungal medication. She was discharged to swing bed for ongoing care needs. She has no new complaints today and feels better. - Constitutional Vitals: Temp Pulse Resp BP Pulse Ox 98.3 F 97 12 114/73 93 02/19/19 06:13 02/19/19 06:13 02/19/19 10:32 02/19/19 06:13 02/19/19 10:32 Exam: She is resting comfortably in bed and appears in no acute distress. She has 1+ edema of the lower legs bilaterally, slightly more on right than left. Her affect is bright and cheerful. Intertrigo erythema has lessened. Reviewed her medications and lab results. Consult Discharge Plan - Plan Referrals: Kierra Tan, [employer] [Primary Care Provider] - 1 week
[2019-02-20] MEDS: Levothyroxine 25 MCG TABLET PO SCH (06:08)
[2019-02-20] MEDS: Budesonide/Formoterol 80/4.5 1 PUFF INH IH SCH ×2 (09:46→21:51)
[2019-02-20] MEDS: Tiotropium 18 MCG inhalation IH SCH (09:46)
[2019-02-20] MEDS: *HR* Digoxin 0.25 MG TABLET PO SCH (09:52)
[2019-02-20] MEDS: Cyanocobalamin (B-12) 1,000 MCG TABLET PO SCH (09:52)
[2019-02-20] MEDS: Fluconazole 100 MG TABLET PO SCH (09:52)
[2019-02-20] MEDS: Furosemide 40 MG/4 ML VIAL IVP SCH (09:53)
[2019-02-20] MEDS: Lactobacillus 1 EACH CAP.SPRINK PO SCH ×2 (09:53→19:58)
[2019-02-20] MEDS: Gabapentin 300 MG CAPSULE PO SCH ×3 (09:53→19:58)
[2019-02-20] MEDS: Cholecalciferol (D-3) 1,000 UNIT (25MCG) TABLET PO SCH (09:53)
[2019-02-20] MEDS: Nicotine 7 MG PATCH.TD24 TD SCH (09:53)
[2019-02-20] MEDS: Ketoconazole 2% CRM 15 GM TUBE TP SCH ×2 (09:57→22:16)
[2019-02-20] MEDS: *HR* HYDROcodone/Acet 7.5/325 mg TABLET PO PRN ×3 (09:58→22:15)
[2019-02-21] MEDS: Levothyroxine 25 MCG TABLET PO SCH (06:07)
[2019-02-21] MEDS: *HR* HYDROcodone/Acet 7.5/325 mg TABLET PO PRN ×2 (06:09→14:05)
[2019-02-21] MEDS: Gabapentin 300 MG CAPSULE PO SCH ×3 (09:59→20:23)
[2019-02-21] MEDS: Lactobacillus 1 EACH CAP.SPRINK PO SCH ×2 (09:59→20:23)
[2019-02-21] MEDS: Furosemide 40 MG/4 ML VIAL IVP SCH (09:59)
[2019-02-21] MEDS: Fluconazole 100 MG TABLET PO SCH (09:59)
[2019-02-21] MEDS: Cyanocobalamin (B-12) 1,000 MCG TABLET PO SCH (09:59)
[2019-02-21] MEDS: Cholecalciferol (D-3) 1,000 UNIT (25MCG) TABLET PO SCH (09:59)
[2019-02-21] MEDS: *HR* Digoxin 0.25 MG TABLET PO SCH (09:59)
[2019-02-21] MEDS: Nicotine 7 MG PATCH.TD24 TD SCH (10:01)
[2019-02-21] MEDS: Tiotropium 18 MCG inhalation IH SCH (10:42)
[2019-02-21] MEDS: Budesonide/Formoterol 80/4.5 1 PUFF INH IH SCH ×2 (10:42→21:48)
[2019-02-21] MEDS: Ketoconazole 2% CRM 15 GM TUBE TP SCH ×2 (11:10→20:23)
--- NOTE | 2019-02-21 11:37 | Internal Med Progress Note ---
Date of Encounter: 02/21/19 Time of Encounter: 11:28 - Assessment and plan (1) Cellulitis Current Visit: No Status: Acute Assessment and plan: February 19. Continues to improve. Continue IV vancomycin with lactobacillus. February 21. Anticipate discharge home tomorrow. Qualifiers: Site of cellulitis: extremity Site of cellulitis of extremity: lower extremity Laterality: unspecified laterality Qualified Code(s): L03.119 - Cellulitis of unspecified part of limb (2) CHF (congestive heart failure) Current Visit: No Status: Chronic Assessment and plan: February 19. Echocardiogram 07/27/2017 showed LVEF of 40-45%. Diastolic function assessment was limited due to atrial fibrillation. Continue Lanoxin and Lasix. Qualifiers: Heart failure type: unspecified Heart failure chronicity: chronic Qualified Code(s): I50.9 - Heart failure, unspecified (3) Hypothyroidism Current Visit: No Status: Chronic Assessment and plan: February 19. TSH was normal at 1.494 on 02/16/2019. Continue present dose Synthroid. Qualifiers: Qualified Code(s): E03.9 - Hypothyroidism, unspecified (4) Gout Current Visit: No Status: Chronic Assessment and plan: February 19. Uric acid level was WNL at 5.3 on 02/16/2019. Continue present dose allopurinol. Qualifiers: Gout site: unspecified site Gout etiology: unspecified cause Chronicity: chronic Presence of tophus: without tophus Qualified Code(s): M1A.9XX0 - Chronic gout, unspecified, without tophus (tophi) (5) Atrial fibrillation Current Visit: No Status: Chronic Assessment and plan: February 19. Continue Lanoxin for rate control. Toprol-XL was discontinued during acute care stay due to hypotension. She has declined OAC due to history of vaginal bleeding. Qualifiers: Atrial fibrillation type: chronic Qualified Code(s): I48.20 - Chronic atrial fibrillation, unspecified (6) Candidal intertrigo Current Visit: No Status: Acute Assessment and plan: February 19. Improving. Continue oral Diflucan and topical ketoconazole. (7) Hypertension Current Visit: No Status: Chronic Assessment and plan: February 19. Continue Lasix for heart failure. Blood pressure borderline low during acute care stay and Toprol-XL was discontinued. Qualifiers: Hypertension type: essential hypertension Qualified Code(s): I10 - Essential (primary) hypertension (8) Weight loss Current Visit: No Status: Acute Assessment and plan: February 19. TSH was normal at 1.494 during acute care stay. CT of chest abdomen and pelvis showed no worrisome pathology. (9) B12 deficiency Current Visit: No Status: Chronic Assessment and plan: February 19. She received B12 IM in acute-care followed by initiation of oral B12 supplement. Continue present Rx. (10) Weakness Current Visit: No Status: Acute Assessment and plan: February 19. Continue PT/OT intervention. - Subjective Interval history: February 19. She was hospitalized in acute-care February 15 after presenting with weeping edema and cellulitis of her legs. She was given IV vancomycin lactobacillus, IV diuretics, and oral and topical antifungal medication. She was discharged to swing bed for ongoing care needs. She has no new complaints today and feels better. February 21. She has no new complaints and feels better. She reports she is making good progress in therapy and wishes to be discharged home soon. - Constitutional Vitals: Temp Pulse Resp BP Pulse Ox 97.5 F L 84 14 109/60 95 02/21/19 06:39 02/21/19 06:39 02/21/19 10:42 02/21/19 06:39 02/21/19 10:42 Exam: She is resting comfortably in a chair at bedside and appears in no acute di stress. Her affect is cheerful. There is further decrease in edema and erythema of her legs. I reviewed her medications and lab results. Consult Discharge Plan - Plan Referrals: Kierra Tan, [employer] [Primary Care Provider] - 1 week
[2019-02-22] MEDS: Levothyroxine 25 MCG TABLET PO SCH (04:43)
[2019-02-22 07:25] VITALS: BP 120/76
[2019-02-22] MEDS: Ketoconazole 2% CRM 15 GM TUBE TP SCH (08:27)
[2019-02-22] MEDS: Lactobacillus 1 EACH CAP.SPRINK PO SCH (08:28)
[2019-02-22] MEDS: *HR* HYDROcodone/Acet 7.5/325 mg TABLET PO PRN (08:28)
[2019-02-22] MEDS: Cyanocobalamin (B-12) 1,000 MCG TABLET PO SCH (08:28)
[2019-02-22] MEDS: Fluconazole 100 MG TABLET PO SCH (08:28)
[2019-02-22] MEDS: *HR* Digoxin 0.25 MG TABLET PO SCH (08:28)
[2019-02-22] MEDS: Gabapentin 300 MG CAPSULE PO SCH (08:28)
[2019-02-22] MEDS: Cholecalciferol (D-3) 1,000 UNIT (25MCG) TABLET PO SCH (08:28)
[2019-02-22] MEDS: Furosemide 40 MG/4 ML VIAL IVP SCH (08:29)
[2019-02-22] MEDS: Nicotine 7 MG PATCH.TD24 TD SCH (08:29)
[2019-02-22] MEDS: Tiotropium 18 MCG inhalation IH SCH (09:05)
[2019-02-22] MEDS: Budesonide/Formoterol 80/4.5 1 PUFF INH IH SCH (09:06)
--- NOTE | 2019-02-22 09:55 | Discharge Summary ---
Date of Encounter: 02/22/19 Time of Encounter: 09:37 - Discharge Diagnosis (1) Cellulitis Priority: Primary Status: Acute Qualifiers: Site of cellulitis: extremity Site of cellulitis of extremity: lower extremity Laterality: unspecified laterality Qualified Code(s): L03.119 - Cellulitis of unspecified part of limb (2) CHF (congestive heart failure) Priority: Secondary Status: Chronic Qualifiers: Heart failure type: unspecified Heart failure chronicity: chronic Qualified Code(s): I50.9 - Heart failure, unspecified (3) Hypothyroidism Priority: Secondary Status: Chronic Qualifiers: Qualified Code(s): E03.9 - Hypothyroidism, unspecified (4) Gout Priority: Secondary Status: Chronic Qualifiers: Gout site: unspecified site Gout etiology: unspecified cause Chronicity: chronic Presence of tophus: without tophus Qualified Code(s): M1A.9XX0 - Chronic gout, unspecified, without tophus (tophi) (5) Atrial fibrillation Priority: Secondary Status: Chronic Qualifiers: Atrial fibrillation type: unspecified chronic Qualified Code(s): I48.20 - Chronic atrial fibrillation, unspecified; I48.2 - Chronic atrial fibrillation (6) Candidal intertrigo Priority: Secondary Status: Acute (7) Hypertension Priority: Secondary Status: Chronic Qualifiers: Hypertension type: essential hypertension Qualified Code(s): I10 - Essential (primary) hypertension (8) Weight loss Priority: Secondary Status: Acute (9) B12 deficiency Priority: Secondary Status: Chronic (10) Weakness Priority: Secondary Status: Chronic Hospital course: Ms. Wong is a 59 year old female who was hospitalized in acute-care February 15 after presenting with weeping edema and cellulitis of her legs. She was given IV vancomycin lactobacillus, IV diuretics, and oral and topical antifungal medication. She was discharged to swing bed for ongoing care needs. IV vancomycin with lactobacillus was continued in swing bed with continued decrease in the erythema. Topical ketoconazole was continued. IV Lasix was given with additional decrease in edema. She had physical therapy and occupational therapy intervention and made satisfactory progress. On February 22 she was stable for discharge home. Home health services and passport will be ordered at discharge. She will continue with oral antibiotics and probiotic for 5 additional days at home. She will continue with topical ketoconazole for 7 days. She will continue with Lanoxin for rate control from atrial fibrillation. Toprol-XL was discontinued during acute care stay due to hypotension and her blood pressure and heart rate remained stable on this regimen. She will continue oral B12 supplement at home. She will follow with her PCP Kierra Tan CNP within 1 week. - Time Spent with Patient Total time spent providing and/or coordinating discharge services: - Discharge Medications Prescriptions: New Bumetanide [Bumex] 1 mg PO DAILY #30 tablet Lactobacillus [Culturelle] 1 each PO BID #10 cap.sprink Doxycycline 100 mg PO BID #10 capsule Digoxin [Lanoxin] 0.25 mg PO DAILY #30 tablet Ketoconazole 2% CRM [Nizoral Cream] 1 appl TP BID 7 Days #1 tube Cyanocobalamin (B-12) [Vitamin B12] 1,000 mcg PO DAILY #30 tablet Continued Oxygen 3 l NS AD Cholecalciferol (D-3) [Vitamin D] 1,000 unit PO DAILY HYDROcodone/Acet 7.5/325 mg [[place] 7.5-325 mg] 1 tab PO Q6H PRN PRN Reason: Pain Levothyroxine [Synthroid] 50 mcg PO QAM Albuterol Sulfate [Proair Hfa] 2 puff IH Q4H PRN PRN Reason: Shortness Of Breath Allopurinol [Zyloprim] 100 mg PO DAILY Tiotropium [Spiriva] 18 mcg IH 0700 Potassium Chloride [K-Tab ER] 20 meq PO QID Fluticasone/Salmeterol [Advair 250-50 Diskus] 1 each IH BID Gabapentin [Neurontin] 600 mg PO TID Home Medications: Albuterol Sulfate [Proair Hfa] 2 puff IH Q4H PRN 08/15/15 [History] Levothyroxine [Synthroid] 50 mcg PO QAM 08/15/15 [History] Allopurinol [Zyloprim] 100 mg PO DAILY 11/06/16 [History] Fluticasone/Salmeterol [Advair 250-50 Diskus] 1 each IH BID 07/15/17 [History] Potassium Chloride [K-Tab ER] 20 meq PO QID 07/15/17 [History] Tiotropium [Spiriva] 18 mcg IH 0700 07/15/17 [History] Cholecalciferol (D-3) [Vitamin D] 1,000 unit PO DAILY 07/26/17 [History] Oxygen 3 l NS AD 07/26/17 [History] Gabapentin [Neurontin] 600 mg PO TID 02/08/18 [History] HYDROcodone/Acet 7.5/325 mg [[place] 7.5-325 mg] 1 tab PO Q6H PRN 02/17/18 [History] Bumetanide [Bumex] 1 mg PO DAILY #30 tablet 02/22/19 [Rx] Cyanocobalamin (B-12) [Vitamin B12] 1,000 mcg PO DAILY #30 tablet 02/22/19 [Rx] Digoxin [Lanoxin] 0.25 mg PO DAILY #30 tablet 02/22/19 [Rx] Doxycycline 100 mg PO BID #10 capsule 02/22/19 [Rx] Ketoconazole 2% CRM [Nizoral Cream] 1 appl TP BID 7 Days #1 tube 02/22/19 [Rx] Lactobacillus [Culturelle] 1 each PO BID #10 cap.sprink 02/22/19 [Rx] Allergies/Adverse Reactions: Allergy/AdvReac Type Severity Reaction Status Date / Time adhesive tape Allergy Rash Verified 02/09/18 15:57 lisinopril AdvReac Cough Verified 02/09/18 15:57 Date of admission: 02/18/19 12:30 Primary care physician: Kierra Tan CNP Consults: 02/18/19 12:51 Consult to Occupational Therapy [CONS] Routine Comment: Eval and treat Reason for Consult: Generalized weakness Does patient have active BEDREST order?: No Is patient medically & hemodynamically stable?: Yes Patient assessed for mobility or mobilized this visit?: No Consult to Physical Therapy [CONS] Routine Comment: eval and treat Reason for Consult: Generalized weakness Does patient have active BEDREST order?: No Is patient medically & hemodynamically stable?: Yes Patient assessed for mobility or mobilized this visit?: Yes Consult to [employer] Counter [CONS] Routine Reason for SW Consult: Discharge planning - Constitutional Vitals: Temp Pulse Resp BP Pulse Ox 98.2 F 83 16 120/76 95 02/22/19 07:24 02/22/19 07:24 02/22/19 09:07 02/22/19 07:24 02/22/19 09:07 - Patient Status Disposition: Home Health Service - Discharge Instructions Follow Up With: Kierra Tan, SHAKEEL [Primary Care Provider] - 1 week - Diet and Activity Activity: as per physical therapy Diet: low fat, low cholesterol, low salt diet
--- NOTE | 2019-02-22 10:01 | Physician Discharge Referral ---
Home Health/Hosp Referral Info Transfer to: Home Health Attending Provider: Gurjit Provider in Charge Post Discharge: PCP (Dominick) - Diagnosis (1) Cellulitis Priority: Primary Status: Acute (2) CHF (congestive heart failure) Priority: Secondary Status: Chronic (3) Hypothyroidism Priority: Secondary Status: Chronic (4) Gout Priority: Secondary Status: Chronic (5) Atrial fibrillation Priority: Secondary Status: Chronic (6) Candidal intertrigo Priority: Secondary Status: Acute (7) Hypertension Priority: Secondary Status: Chronic (8) Weight loss Priority: Secondary Status: Acute (9) B12 deficiency Priority: Secondary Status: Chronic (10) Weakness Priority: Secondary Status: Chronic - Respiratory Orders Oxygen / L per min (As previously ordered) Smoking Cessation: Smoking cessation has been advised. For more information, call the [employer] Tobacco Quit Line at 0-146-JUCY-NOW. - Diet/Nutrition Diet/Nutrition Orders: No Added Salt (KIMBERLY), Cardiac - Activity Activity Orders: Walker - Services Needed Following services are medically necessary services: Nursing, Home Health Aide, Physical Therapy, Occupational Therapy - Transfer Medications Prescriptions: Bumetanide [Bumex] 1 mg PO DAILY #30 tablet Transmission Status: Pending to [facility] Lactobacillus [Culturelle] 1 each PO BID #10 cap.sprink Transmission Status: Pending to [facility] Doxycycline 100 mg PO BID #10 capsule Transmission Status: Pending to [facility] Digoxin [Lanoxin] 0.25 mg PO DAILY #30 tablet Transmission Status: Pending to [facility] Ketoconazole 2% CRM [Nizoral Cream] 1 appl TP BID 7 Days #1 tube Transmission Status: Pending to [facility] Cyanocobalamin (B-12) [Vitamin B12] 1,000 mcg PO DAILY #30 tablet Prescription Printed Home Medications: Albuterol Sulfate [Proair Hfa] 2 puff IH Q4H PRN 08/15/15 [History] Levothyroxine [Synthroid] 50 mcg PO QAM 08/15/15 [History] Allopurinol [Zyloprim] 100 mg PO DAILY 11/06/16 [History] Fluticasone/Salmeterol [Advair 250-50 Diskus] 1 each IH BID 07/15/17 [History] Potassium Chloride [K-Tab ER] 20 meq PO QID 07/15/17 [History] Tiotropium [Spiriva] 18 mcg IH 0700 07/15/17 [History] Cholecalciferol (D-3) [Vitamin D] 1,000 unit PO DAILY 07/26/17 [History] Oxygen 3 l NS AD 07/26/17 [History] Gabapentin [Neurontin] 600 mg PO TID 02/08/18 [History] HYDROcodone/Acet 7.5/325 mg [[place] 7.5-325 mg] 1 tab PO Q6H PRN 02/17/18 [History] Bumetanide [Bumex] 1 mg PO DAILY #30 tablet 02/22/19 [Rx] Cyanocobalamin (B-12) [Vitamin B12] 1,000 mcg PO DAILY #30 tablet 02/22/19 [Rx] Digoxin [Lanoxin] 0.25 mg PO DAILY #30 tablet 02/22/19 [Rx] Doxycycline 100 mg PO BID #10 capsule 02/22/19 [Rx] Ketoconazole 2% CRM [Nizoral Cream] 1 appl TP BID 7 Days #1 tube 02/22/19 [Rx] Lactobacillus [Culturelle] 1 each PO BID #10 cap.sprink 02/22/19 [Rx] Allergies/Adverse Reactions: Allergy/AdvReac Type Severity Reaction Status Date / Time adhesive tape Allergy Rash Verified 02/09/18 15:57 lisinopril AdvReac Cough Verified 02/09/18 15:57 Certification: Further, I certify that my clinical findings support that this patient is homebound (i.e. absences from home require considerable and taxing effort and are for medical reasons or evangelical services or infrequently or short duration when for other reasons) because: Homebound Reason: Leaving home requires considerable and taxing effort due to condition (Impaired walking ability with heart failure.) Attestation: My signature below is to certify that this patient is under my care and that I, or nurse practitioner, or a physician's personal assistant working with me, has a [id number] encounter with this patient.
[2019-02-22] MEDS ORDERED: FLU Vac QV 19-20 (6Month+)/PF 0.5 ML SYRINGE IM ONE (11:09)
== END 2019-02-22 12:10 | disposition home health service (06) | DRG 603 ==
LOC: INPPIK 12:30
PROVIDERS: ADMIT Internal Medicine; ATTEND Internal Medicine

== ENCOUNTER 2019-05-29 15:42 | Inpatient (IN) ==
[2019-05-29] MEDS ORDERED: cefTRIAXone 2,000 MG in 0.9 % Sodium Chloride Mini Bag 100 ML IVPB ONE (16:05)
[2019-05-29] MEDS ORDERED: 0.9 % Sodium Chloride 1,000 ML IVC ONE (16:05)
[2019-05-29] MEDS ORDERED: methylPREDNISolone 125 MG/2 ML VIAL IVP ONE (16:05)
[2019-05-29] MEDS ORDERED: Azithromycin 500 MG in 0.9 % Sodium Chloride 250 ML IVPB ONE (16:05)
[2019-05-29 16:24] LABS: Basophils # 0.1 K/mcL (0.0-0.2); Basophils % 0.3 %; Eosinophils % 0.2 %; Hematocrit 47.3 % (35.3-44.9); Hemoglobin 15.4 g/dL (11.5-15.4); Immature Granulocytes % 0.4 % (0-4); Lymphocytes # 1.2 K/mcL (0.6-4.6); Lymphocytes % 5.2 %; Mean Corpuscular HGB Conc 32.6 g/dL (31.6-35.5); Mean Corpuscular Hemoglobin 30.8 pg (28.0-33.3); Mean Corpuscular Volume 94.6 fL (83.0-100.0); Mean Platelet Volume 11.5 fL (9.4-12.4); Monocytes # 1.2 K/mcL (0.0-1.3); Monocytes % 5.2 %; Neutrophils # 20.4 K/mcL (1.6-8.9); Platelet Count 180 K/mcL (140-400); Red Cell Distribution Width 14.3 % (11.5-14.5); Segmented Neutrophils % 88.7 %
[2019-05-29 16:28] LABS: Eosinophils # 0.1 K/mcL (0.0-0.6)
[2019-05-29 16:40] LABS: BUN/Creatinine Ratio 10 (6-26); Blood Urea Nitrogen 8 mg/dL (8-23); Calcium 9.1 mg/dL (8.6-10.3); Carbon Dioxide 33 mEq/L (23-29); Chloride 97 mEq/L (98-107); Glucose 113 mg/dL (70-105); Osmolality,Calculated 285 (280-300); Sodium 138 mEq/L (136-145); eGFR For African Americans > 60 (> 60); eGFR For Non-African Americans > 60 (> 60)
[2019-05-29 16:44] LABS: Troponin I < 0.03 ng/mL (< 0.04)
[2019-05-29] MEDS ORDERED: Ondansetron ODT 4 MG TAB.RAPDIS SL PRN (17:45)
[2019-05-29] MEDS ORDERED: Mag Hydrox/Al Hydrox/Simeth 30 ML UDC PO PRN (17:45)
[2019-05-29] MEDS ORDERED: Naloxone 0.4 MG/ML INJ IVP PRN (17:45)
[2019-05-29] MEDS: 0.9 % Sodium Chloride 1,000 ML IVC SCH ×2 (17:51→21:05)
[2019-05-29] MEDS ORDERED: Acetaminophen 325 MG TABLET PO PRN (18:04)
[2019-05-29] MEDS ORDERED: 0.9 % Sodium Chloride 1,000 ML IV ONE (18:06)
[2019-05-29] MEDS: Ipratropium/Albuterol Neb 3 ML IH PRN (18:55)
[2019-05-29] MEDS ORDERED: Nystatin Cream 15 GM TUBE TP SCH (21:00)
[2019-05-29] MEDS: GuaiFENesin Liq 200 MG/10 ML UDC PO PRN (21:06)
[2019-05-29] MEDS: Gabapentin 300 MG CAPSULE PO SCH (21:06)
[2019-05-29] MEDS: Budesonide/Formoterol 80/4.5 1 PUFF INH IH SCH (21:17)
[2019-05-29 22:43] LABS: Bilirubin,Urine Negative (Negative); Blood,Urine Trace-intact (Negative); Clarity,Urine Clear (Clear); Color,Urine Yellow (Yellow); Glucose,Urine (UA) Normal (Normal); Ketones,Urine Negative (Negative); Leukocyte Esterase,Urine Negative (Negative); Nitrite,Urine Negative (Negative); PH,Urine 5.5 pH Units (5.0-8.0); Protein,Urine Negative (Neg-Trace); Specific Gravity,Urine 1.015 (1.010-1.025); Urobilinogen,Urine Normal (Normal)
[2019-05-29] MEDS: Nystatin POWDER 30 GM BOTTLE TP SCH (23:24)
[2019-05-29] MEDS: *HR* HYDROcodone/Acet 7.5/325 mg TABLET PO PRN (23:24)
[2019-05-30] MEDS: 0.9 % Sodium Chloride 1,000 ML IVC SCH (04:56)
[2019-05-30 07:22] LABS: Basophils % 0.1 %; Hematocrit 46.3 % (35.3-44.9); Hemoglobin 14.8 g/dL (11.5-15.4); Immature Granulocytes % 0.6 % (0-4); Lymphocytes # 1.3 K/mcL (0.6-4.6); Lymphocytes % 5.5 %; Mean Corpuscular Hemoglobin 30.5 pg (28.0-33.3); Mean Corpuscular Volume 95.3 fL (83.0-100.0); Mean Platelet Volume 11.9 fL (9.4-12.4); Monocytes % 2.3 %; Neutrophils # 21.8 K/mcL (1.6-8.9); Platelet Count 151 K/mcL (140-400); Red Blood Count 4.86 M/mcL (3.82-4.97); Red Cell Distribution Width 14.2 % (11.5-14.5); Segmented Neutrophils % 91.5 %; White Blood Count 23.8 K/mcL (4.3-11.1)
[2019-05-30 07:24] LABS: Monocytes # 0.6 K/mcL (0.0-1.3)
[2019-05-30 07:43] LABS: Alanine Aminotransferase 10 Units/L (7-52); Albumin 3.2 g/dL (3.5-5.7); Albumin/Globulin Ratio 0.9 (1.1-2.2); Alkaline Phosphatase 68 Units/L (34-104); Aspartate Amino Transferase 15 Units/L (13-39); BUN/Creatinine Ratio 16 (6-26); Bilirubin,Total 0.6 mg/dL (0.3-1.0); Blood Urea Nitrogen 10 mg/dL (8-23); Calcium 8.6 mg/dL (8.6-10.3); Carbon Dioxide 28 mEq/L (23-29); Chloride 103 mEq/L (98-107); Globulin 3.7 g/dL (2.4-3.5); Glucose 144 mg/dL (70-105); Magnesium 1.9 mg/dL (1.6-2.6); Osmolality,Calculated 294 (280-300); Potassium 3.8 mEq/L (3.5-5.1); Sodium 141 mEq/L (136-145); Total Protein 6.9 g/dL (6.4-8.9); eGFR For African Americans > 60 (> 60); eGFR For Non-African Americans > 60 (> 60)
[2019-05-30] MEDS: Levothyroxine 25 MCG TABLET PO SCH (07:48)
[2019-05-30] MEDS ORDERED: 0.9 % Sodium Chloride 1,000 ML IVC SCH (07:51)
[2019-05-30 07:58] LABS: Platelet Estimate Normal (Normal)
[2019-05-30] MEDS: *HR* HYDROcodone/Acet 7.5/325 mg TABLET PO PRN ×2 (08:33→17:13)
[2019-05-30] MEDS: Gabapentin 300 MG CAPSULE PO SCH ×3 (08:34→20:08)
[2019-05-30] MEDS: *HR* Enoxaparin 40 MG/0.4 ML SYRINGE SQ SCH (08:45)
[2019-05-30] MEDS ORDERED: Isovue-370 500 ML BOTTLE IVP ONE (09:40)
[2019-05-30 09:59] LABS: Adenovirus Not Detected (Not Detect); Bordetella Pertussis Not Detected (Not Detect); Chlamydophila pneumoniae Not Detected (Not Detect); Coronavirus 229E Not Detected (Not Detect); Coronavirus HKU1 Not Detected (Not Detect); Coronavirus NL63 Not Detected (Not Detect); Coronavirus OC43 Not Detected (Not Detect); Human Metapneumovirus Not Detected (Not Detect); Human Rhinovirus/Enterovirus Not Detected (Not Detect); Influenza A Subtype 2009 H1 Not Detected (Not Detect); Influenza B Not Detected (Not Detect); Mycoplasma pneumoniae Not Detected (Not Detect); Parainfluenza Virus 1 Not Detected (Not Detect); Parainfluenza Virus 2 Not Detected (Not Detect); Parainfluenza Virus 3 Not Detected (Not Detect); Parainfluenza Virus 4 Not Detected (Not Detect); Respiratory Syncytial Virus Not Detected (Not Detect)
[2019-05-30] MEDS: Budesonide/Formoterol 80/4.5 1 PUFF INH IH SCH ×2 (10:18→22:35)
[2019-05-30] MEDS: Ipratropium/Albuterol Neb 3 ML IH PRN ×2 (10:18→20:13)
[2019-05-30] MEDS: Nystatin POWDER 30 GM BOTTLE TP SCH ×3 (13:22→20:09)
[2019-05-30] MEDS: cefTRIAXone 2,000 MG in Water for inj. (sterile) 20 ML IVP SCH (17:14)
[2019-05-30] MEDS: Azithromycin 500 MG in 0.9 % Sodium Chloride 250 ML IVPB SCH (17:14)
[2019-05-30] MEDS: GuaiFENesin Liq 200 MG/10 ML UDC PO PRN (20:08)
[2019-05-31] MEDS: *HR* HYDROcodone/Acet 7.5/325 mg TABLET PO PRN ×3 (02:50→19:38)
[2019-05-31] MEDS: Levothyroxine 25 MCG TABLET PO SCH (05:58)
[2019-05-31] MEDS: Gabapentin 300 MG CAPSULE PO SCH ×3 (07:50→19:38)
[2019-05-31] MEDS: Nystatin POWDER 30 GM BOTTLE TP SCH ×3 (07:50→19:38)
[2019-05-31] MEDS: *HR* Enoxaparin 40 MG/0.4 ML SYRINGE SQ SCH (07:50)
[2019-05-31 07:53] LABS: Hematocrit 43.8 % (35.3-44.9); Mean Corpuscular Volume 97.1 fL (83.0-100.0); Mean Platelet Volume 11.9 fL (9.4-12.4); Platelet Count 127 K/mcL (140-400); Red Blood Count 4.51 M/mcL (3.82-4.97); Red Cell Distribution Width 14.2 % (11.5-14.5); White Blood Count 13.4 K/mcL (4.3-11.1)
[2019-05-31 08:12] LABS: BUN/Creatinine Ratio 16 (6-26); Blood Urea Nitrogen 9 mg/dL (8-23); Calcium 8.8 mg/dL (8.6-10.3); Carbon Dioxide 29 mEq/L (23-29); Chloride 104 mEq/L (98-107); Glucose 99 mg/dL (70-105); Osmolality,Calculated 291 (280-300); Potassium 3.3 mEq/L (3.5-5.1); Sodium 141 mEq/L (136-145); eGFR For African Americans > 60 (> 60); eGFR For Non-African Americans > 60 (> 60)
[2019-05-31] MEDS: Ipratropium/Albuterol Neb 3 ML IH PRN (08:24)
[2019-05-31] MEDS: Budesonide/Formoterol 80/4.5 1 PUFF INH IH SCH ×2 (08:24→22:24)
[2019-05-31] MEDS: cefTRIAXone 2,000 MG in Water for inj. (sterile) 20 ML IVP SCH (16:18)
[2019-05-31] MEDS: Azithromycin 500 MG in 0.9 % Sodium Chloride 250 ML IVPB SCH (16:18)
[2019-05-31] MEDS: MethylPREDNISolone 40 MG/ML VIAL IVP SCH (17:49)
[2019-06-01] MEDS: *HR* HYDROcodone/Acet 7.5/325 mg TABLET PO PRN ×2 (01:48→15:27)
[2019-06-01] MEDS: MethylPREDNISolone 40 MG/ML VIAL IVP SCH (04:28)
[2019-06-01] MEDS: Levothyroxine 25 MCG TABLET PO SCH (04:28)
[2019-06-01 06:11] LABS: Hematocrit 46.6 % (35.3-44.9); Hemoglobin 14.8 g/dL (11.5-15.4); Mean Corpuscular HGB Conc 31.8 g/dL (31.6-35.5); Mean Corpuscular Hemoglobin 30.8 pg (28.0-33.3); Mean Corpuscular Volume 96.9 fL (83.0-100.0); Mean Platelet Volume 11.8 fL (9.4-12.4); Platelet Count 170 K/mcL (140-400); Red Blood Count 4.81 M/mcL (3.82-4.97); White Blood Count 9.1 K/mcL (4.3-11.1)
[2019-06-01 07:17] LABS: BUN/Creatinine Ratio 15 (6-26); Blood Urea Nitrogen 8 mg/dL (8-23); Calcium 9.4 mg/dL (8.6-10.3); Carbon Dioxide 35 mEq/L (23-29); Chloride 101 mEq/L (98-107); Glucose 120 mg/dL (70-105); Osmolality,Calculated 294 (280-300); Potassium 4.3 mEq/L (3.5-5.1); Sodium 142 mEq/L (136-145); eGFR For African Americans > 60 (> 60); eGFR For Non-African Americans > 60 (> 60)
[2019-06-01] MEDS: *HR* Enoxaparin 40 MG/0.4 ML SYRINGE SQ SCH (08:32)
[2019-06-01] MEDS: Gabapentin 300 MG CAPSULE PO SCH ×2 (08:32→15:27)
[2019-06-01] MEDS: Nystatin POWDER 30 GM BOTTLE TP SCH ×2 (08:37→15:43)
[2019-06-01] MEDS ORDERED: Furosemide 40 MG TABLET PO SCH (09:00)
[2019-06-01] MEDS ORDERED: *HR* Digoxin 0.25 MG TABLET PO SCH (09:00)
[2019-06-01] MEDS: Budesonide/Formoterol 80/4.5 1 PUFF INH IH SCH (09:02)
[2019-06-01 10:39] VITALS: BP 131/90
[2019-06-01] MEDS: cefTRIAXone 2,000 MG in Water for inj. (sterile) 20 ML IVP SCH (15:43)
== END 2019-06-01 16:05 | disposition home or self-care (01) | DRG 871 ==
LOC: INPPIK 15:42 → EMEROOPIK 15:42 → INPPIK 18:15
PROVIDERS: ADMIT Family Medicine; ATTEND Family Medicine

== ENCOUNTER 2020-02-26 16:14 | Inpatient (IN) ==
[2020-02-26] MEDS ORDERED: Furosemide 40 MG/4 ML VIAL IVP ONE (16:50)
[2020-02-26 17:12] LABS: Basophils # 0.1 K/mcL (0.0-0.2); Basophils % 0.5 %; Eosinophils # 0.1 K/mcL (0.0-0.6); Eosinophils % 0.7 %; Hemoglobin 15.2 g/dL (11.5-15.4); Immature Granulocytes % 0.2 % (0-4); Lymphocytes # 1.6 K/mcL (0.6-4.6); Mean Corpuscular Hemoglobin 28.4 pg (28.0-33.3); Mean Corpuscular Volume 91.6 fL (83.0-100.0); Mean Platelet Volume 12.1 fL (9.4-12.4); Monocytes # 0.8 K/mcL (0.0-1.3); Monocytes % 7.2 %; Neutrophils # 7.9 K/mcL (1.6-8.9); Platelet Count 146 K/mcL (140-400); Red Blood Count 5.35 M/mcL (3.82-4.97); Segmented Neutrophils % 76.4 %; White Blood Count 10.4 K/mcL (4.3-11.1)
[2020-02-26 17:29] LABS: BUN/Creatinine Ratio 14 (6-26); Blood Urea Nitrogen 9 mg/dL (8-23); Calcium 8.7 mg/dL (8.6-10.3); Carbon Dioxide 37 mEq/L (23-29); Chloride 97 mEq/L (98-107); Glucose 92 mg/dL (70-105); Osmolality,Calculated 288 (280-300); Potassium 3.7 mEq/L (3.5-5.1); Sodium 140 mEq/L (136-145); eGFR For African Americans > 60 (> 60); eGFR For Non-African Americans > 60 (> 60)
[2020-02-26 17:31] LABS: Troponin I < 0.03 ng/mL (< 0.04)
[2020-02-26] MEDS ORDERED: MOM Conc 10 ML UD.LIQ PO PRN (19:07)
[2020-02-26] MEDS ORDERED: Naloxone 0.4 MG/ML INJ IVP PRN (19:07)
[2020-02-26] MEDS ORDERED: Ondansetron 4 MG/2 ML VIAL IVP PRN (19:07)
[2020-02-26] MEDS ORDERED: Mag Hydrox/Al Hydrox/Simeth 30 ML UDC PO PRN (19:07)
[2020-02-26] MEDS ORDERED: Acetaminophen 325 MG TABLET PO PRN (19:07)
[2020-02-26] MEDS ORDERED: *HR* HYDROcodone/Acet 7.5/325 mg TABLET PO PRN (19:11)
[2020-02-26] MEDS ORDERED: Albuterol 2.5 MG/3 ML NEBULIZER IH PRN (19:18)
[2020-02-26] MEDS: Gabapentin 300 MG CAPSULE PO SCH (21:54)
[2020-02-26] MEDS: Ketoconazole 2% CRM 15 GM TUBE TP SCH (21:55)
[2020-02-26] MEDS: Furosemide 40 MG/4 ML VIAL IVP SCH (21:55)
[2020-02-26] MEDS: *HR* HYDROcodone/Acet 7.5/325 mg TABLET PO PRN (21:55)
[2020-02-26] MEDS: Budesonide/Formoterol 160/4.5 1 PUFF INH IH SCH (23:12)
[2020-02-27] MEDS ORDERED: *HR* Metoprolol 5 MG/5 ML VIAL IVP ONE (05:51)
[2020-02-27] MEDS: *HR* Enoxaparin 40 MG/0.4 ML SYRINGE SQ SCH (05:59)
[2020-02-27] MEDS: Levothyroxine 25 MCG TABLET PO SCH (05:59)
[2020-02-27 07:08] LABS: Basophils % 0.3 %; Eosinophils # 0.1 K/mcL (0.0-0.6); Eosinophils % 1.4 %; Hematocrit 47.8 % (35.3-44.9); Hemoglobin 14.6 g/dL (11.5-15.4); Immature Granulocytes % 0.3 % (0-4); Lymphocytes # 2.3 K/mcL (0.6-4.6); Lymphocytes % 23.6 %; Mean Corpuscular HGB Conc 30.5 g/dL (31.6-35.5); Mean Corpuscular Hemoglobin 27.9 pg (28.0-33.3); Mean Corpuscular Volume 91.4 fL (83.0-100.0); Mean Platelet Volume 12.4 fL (9.4-12.4); Monocytes # 0.6 K/mcL (0.0-1.3); Monocytes % 6.4 %; Neutrophils # 6.5 K/mcL (1.6-8.9); Platelet Count 156 K/mcL (140-400); Red Blood Count 5.23 M/mcL (3.82-4.97); Red Cell Distribution Width 15.9 % (11.5-14.5); White Blood Count 9.5 K/mcL (4.3-11.1)
[2020-02-27 07:29] LABS: BUN/Creatinine Ratio 15 (6-26); Blood Urea Nitrogen 9 mg/dL (8-23); Calcium 8.6 mg/dL (8.6-10.3); Carbon Dioxide 38 mEq/L (23-29); Chloride 97 mEq/L (98-107); Chol/HDL Ratio 3.4 (0-4.9); Cholesterol 114 mg/dL (< 200); Glucose 98 mg/dL (70-105); HDL Cholesterol 34 mg/dL (40-59); LDL Cholesterol,Calculated 64 mg/dL (< 100); Osmolality,Calculated 291 (280-300); Potassium 3.6 mEq/L (3.5-5.1); Sodium 141 mEq/L (136-145); Triglycerides 80 mg/dL (< 150); eGFR For African Americans > 60 (> 60); eGFR For Non-African Americans > 60 (> 60)
[2020-02-27] MEDS ORDERED: Metoprolol XL (24 HR) Succ 25 MG TAB.ER.24H PO SCH (09:00)
[2020-02-27] MEDS: Gabapentin 300 MG CAPSULE PO SCH ×3 (09:02→23:09)
[2020-02-27] MEDS: Cholecalciferol (D-3) 1,000 UNIT (25MCG) TABLET PO SCH (09:03)
[2020-02-27] MEDS: allopurinoL 100 MG TABLET PO SCH (09:03)
[2020-02-27] MEDS: Metoprolol XL (24 HR) Succ 50 MG TAB.ER.24H PO SCH (09:03)
[2020-02-27] MEDS: Cyanocobalamin (B-12) 1,000 MCG TABLET PO SCH (09:03)
[2020-02-27] MEDS: Furosemide 40 MG/4 ML VIAL IVP SCH ×2 (09:03→12:29)
[2020-02-27] MEDS: Tiotropium 18 MCG inhalation IH SCH (09:08)
[2020-02-27] MEDS: Budesonide/Formoterol 160/4.5 1 PUFF INH IH SCH ×2 (09:09→21:21)
[2020-02-27 09:39] LABS: Estimated Average Glucose 131 mg/dl
[2020-02-27] MEDS: Ketoconazole 2% CRM 15 GM TUBE TP SCH ×2 (09:41→23:09)
[2020-02-27] MEDS: *HR* HYDROcodone/Acet 7.5/325 mg TABLET PO PRN ×2 (09:44→17:35)
[2020-02-27] MEDS ORDERED: 0.9 % Sodium Chloride 500 ML IVC ONE ×2 (15:05→18:00)
[2020-02-27] MEDS: Cefepime HCl 1,000 MG in 0.9 % Sodium Chloride Mini Bag 100 ML IVPB SCH (17:26)
[2020-02-27] MEDS: Nystatin POWDER 30 GM BOTTLE TP SCH (23:10)
[2020-02-28] MEDS: *HR* Enoxaparin 40 MG/0.4 ML SYRINGE SQ SCH (06:28)
[2020-02-28] MEDS: Levothyroxine 25 MCG TABLET PO SCH (06:29)
[2020-02-28] MEDS: *HR* HYDROcodone/Acet 7.5/325 mg TABLET PO PRN ×2 (06:29→15:52)
[2020-02-28] MEDS: Cefepime HCl 1,000 MG in 0.9 % Sodium Chloride Mini Bag 100 ML IVPB SCH ×2 (06:30→17:28)
[2020-02-28 06:42] LABS: Basophils % 0.4 %; Eosinophils # 0.1 K/mcL (0.0-0.6); Eosinophils % 1.5 %; Hematocrit 45.4 % (35.3-44.9); Hemoglobin 13.6 g/dL (11.5-15.4); Immature Granulocytes % 0.3 % (0-4); Lymphocytes # 1.8 K/mcL (0.6-4.6); Mean Corpuscular Hemoglobin 27.9 pg (28.0-33.3); Mean Corpuscular Volume 93.2 fL (83.0-100.0); Mean Platelet Volume 12.1 fL (9.4-12.4); Monocytes # 0.6 K/mcL (0.0-1.3); Monocytes % 7.5 %; Neutrophils # 5.4 K/mcL (1.6-8.9); Platelet Count 149 K/mcL (140-400); Red Blood Count 4.87 M/mcL (3.82-4.97); Red Cell Distribution Width 15.9 % (11.5-14.5); Segmented Neutrophils % 67.3 %
[2020-02-28 07:17] LABS: BUN/Creatinine Ratio 16 (6-26); Blood Urea Nitrogen 10 mg/dL (8-23); Calcium 8.4 mg/dL (8.6-10.3); Carbon Dioxide 35 mEq/L (23-29); Chloride 99 mEq/L (98-107); Glucose 98 mg/dL (70-105); Osmolality,Calculated 289 (280-300); Sodium 140 mEq/L (136-145); eGFR For African Americans > 60 (> 60); eGFR For Non-African Americans > 60 (> 60)
[2020-02-28] MEDS: Gabapentin 300 MG CAPSULE PO SCH ×3 (08:53→21:20)
[2020-02-28] MEDS: Metoprolol XL (24 HR) Succ 50 MG TAB.ER.24H PO SCH (08:54)
[2020-02-28] MEDS: Furosemide 40 MG TABLET PO SCH (08:54)
[2020-02-28] MEDS: Ketoconazole 2% CRM 15 GM TUBE TP SCH ×2 (08:54→21:21)
[2020-02-28] MEDS: Cyanocobalamin (B-12) 1,000 MCG TABLET PO SCH (08:54)
[2020-02-28] MEDS: allopurinoL 100 MG TABLET PO SCH (08:54)
[2020-02-28] MEDS: Cholecalciferol (D-3) 1,000 UNIT (25MCG) TABLET PO SCH (08:54)
[2020-02-28] MEDS: Nystatin POWDER 30 GM BOTTLE TP SCH ×3 (08:55→21:21)
[2020-02-28] MEDS: Tiotropium 18 MCG inhalation IH SCH (10:53)
[2020-02-28] MEDS: Budesonide/Formoterol 160/4.5 1 PUFF INH IH SCH ×2 (10:54→21:20)
[2020-02-29] MEDS: Cefepime HCl 1,000 MG in 0.9 % Sodium Chloride Mini Bag 100 ML IVPB SCH ×2 (05:26→17:36)
[2020-02-29] MEDS: Levothyroxine 25 MCG TABLET PO SCH (05:26)
[2020-02-29] MEDS: *HR* Enoxaparin 40 MG/0.4 ML SYRINGE SQ SCH (05:26)
[2020-02-29] MEDS: Cyanocobalamin (B-12) 1,000 MCG TABLET PO SCH (09:23)
[2020-02-29] MEDS: Gabapentin 300 MG CAPSULE PO SCH ×3 (09:23→20:15)
[2020-02-29] MEDS: Cholecalciferol (D-3) 1,000 UNIT (25MCG) TABLET PO SCH (09:23)
[2020-02-29] MEDS: Metoprolol XL (24 HR) Succ 50 MG TAB.ER.24H PO SCH (09:23)
[2020-02-29] MEDS: Nystatin POWDER 30 GM BOTTLE TP SCH ×3 (09:23→20:19)
[2020-02-29] MEDS: allopurinoL 100 MG TABLET PO SCH (09:23)
[2020-02-29] MEDS: Ketoconazole 2% CRM 15 GM TUBE TP SCH ×2 (09:24→20:20)
[2020-02-29] MEDS: Tiotropium 18 MCG inhalation IH SCH ×2 (10:05→10:41)
[2020-02-29] MEDS: Budesonide/Formoterol 160/4.5 1 PUFF INH IH SCH ×2 (10:42→21:23)
[2020-02-29] MEDS: *HR* HYDROcodone/Acet 7.5/325 mg TABLET PO PRN (11:34)
[2020-03-01] MEDS: Cefepime HCl 1,000 MG in 0.9 % Sodium Chloride Mini Bag 100 ML IVPB SCH (06:07)
[2020-03-01] MEDS: Levothyroxine 25 MCG TABLET PO SCH (06:08)
[2020-03-01] MEDS: *HR* Enoxaparin 40 MG/0.4 ML SYRINGE SQ SCH (06:08)
[2020-03-01] MEDS: *HR* HYDROcodone/Acet 7.5/325 mg TABLET PO PRN (06:13)
[2020-03-01] MEDS: Budesonide/Formoterol 160/4.5 1 PUFF INH IH SCH (07:27)
[2020-03-01] MEDS: Tiotropium 18 MCG inhalation IH SCH (07:28)
[2020-03-01] MEDS: allopurinoL 100 MG TABLET PO SCH (07:45)
[2020-03-01] MEDS: Furosemide 40 MG TABLET PO SCH (07:45)
[2020-03-01] MEDS: Metoprolol XL (24 HR) Succ 50 MG TAB.ER.24H PO SCH (07:45)
[2020-03-01] MEDS: Cholecalciferol (D-3) 1,000 UNIT (25MCG) TABLET PO SCH (07:45)
[2020-03-01] MEDS: Gabapentin 300 MG CAPSULE PO SCH (07:45)
[2020-03-01] MEDS: Cyanocobalamin (B-12) 1,000 MCG TABLET PO SCH (07:46)
[2020-03-01 08:28] LABS: Basophils % 0.5 %; Eosinophils # 0.1 K/mcL (0.0-0.6); Eosinophils % 1.4 %; Hematocrit 47.2 % (35.3-44.9); Hemoglobin 14.1 g/dL (11.5-15.4); Immature Granulocytes % 0.2 % (0-4); Lymphocytes # 1.6 K/mcL (0.6-4.6); Lymphocytes % 19.6 %; Mean Corpuscular HGB Conc 29.9 g/dL (31.6-35.5); Mean Corpuscular Volume 93.7 fL (83.0-100.0); Mean Platelet Volume 12.4 fL (9.4-12.4); Monocytes # 0.6 K/mcL (0.0-1.3); Monocytes % 7.5 %; Neutrophils # 5.7 K/mcL (1.6-8.9); Platelet Count 140 K/mcL (140-400); Red Blood Count 5.04 M/mcL (3.82-4.97); Red Cell Distribution Width 15.9 % (11.5-14.5); Segmented Neutrophils % 70.8 %; White Blood Count 8.1 K/mcL (4.3-11.1)
[2020-03-01 08:46] LABS: BUN/Creatinine Ratio 15 (6-26); Blood Urea Nitrogen 9 mg/dL (8-23); Calcium 8.9 mg/dL (8.6-10.3); Carbon Dioxide 38 mEq/L (23-29); Chloride 99 mEq/L (98-107); Glucose 104 mg/dL (70-105); Osmolality,Calculated 291 (280-300); Potassium 4.3 mEq/L (3.5-5.1); Sodium 141 mEq/L (136-145); eGFR For African Americans > 60 (> 60); eGFR For Non-African Americans > 60 (> 60)
[2020-03-01] MEDS ORDERED: Doxycycline 100 MG CAPSULE PO SCH (09:00)
[2020-03-01 09:47] VITALS: BP 109/60
[2020-03-01] MEDS: Ketoconazole 2% CRM 15 GM TUBE TP SCH (11:50)
[2020-03-01] MEDS: Nystatin POWDER 30 GM BOTTLE TP SCH (11:50)
== END 2020-03-01 14:29 | disposition other institution (70) | DRG 603 ==
LOC: EMEROOPIK 16:14 → INPPIK 16:14
PROVIDERS: ADMIT Family Medicine; ATTEND Family Medicine

== ENCOUNTER 2020-02-29 13:35 | Inpatient (IN) ==
[2020-03-01] MEDS ORDERED: Acetaminophen 325 MG TABLET PO PRN (14:27)
[2020-03-01] MEDS: *HR* HYDROcodone/Acet 7.5/325 mg TABLET PO PRN (16:20)
[2020-03-01] MEDS: Gabapentin 300 MG CAPSULE PO SCH ×2 (16:21→20:34)
[2020-03-01] MEDS: Nystatin POWDER 30 GM BOTTLE TP SCH ×2 (16:21→20:35)
[2020-03-01] MEDS: Doxycycline 100 MG CAPSULE PO SCH (20:34)
[2020-03-01] MEDS: Ketoconazole 2% CRM 15 GM TUBE TP SCH (20:35)
[2020-03-01] MEDS ORDERED: Ketoconazole 2% CRM 15 GM TUBE TP SCH (21:00)
[2020-03-01] MEDS: Budesonide/Formoterol 80/4.5 1 PUFF INH IH SCH (22:22)
[2020-03-02] MEDS: Levothyroxine 25 MCG TABLET PO SCH (05:49)
[2020-03-02] MEDS: Cyanocobalamin (B-12) 1,000 MCG TABLET PO SCH (08:14)
[2020-03-02] MEDS: Cholecalciferol (D-3) 1,000 UNIT (25MCG) TABLET PO SCH (08:14)
[2020-03-02] MEDS: *HR* HYDROcodone/Acet 7.5/325 mg TABLET PO PRN ×2 (08:14→20:25)
[2020-03-02] MEDS: Doxycycline 100 MG CAPSULE PO SCH ×2 (08:14→20:25)
[2020-03-02] MEDS: Gabapentin 300 MG CAPSULE PO SCH ×3 (08:15→20:25)
[2020-03-02] MEDS: Furosemide 40 MG TABLET PO SCH (08:15)
[2020-03-02] MEDS: Metoprolol XL (24 HR) Succ 25 MG TAB.ER.24H PO SCH (08:15)
[2020-03-02] MEDS: allopurinoL 100 MG TABLET PO SCH (08:15)
[2020-03-02] MEDS: Ketoconazole 2% CRM 15 GM TUBE TP SCH ×2 (08:16→20:26)
[2020-03-02] MEDS: Nystatin POWDER 30 GM BOTTLE TP SCH ×3 (08:16→23:30)
[2020-03-02] MEDS: Budesonide/Formoterol 80/4.5 1 PUFF INH IH SCH ×2 (08:35→22:48)
[2020-03-02] MEDS: Tiotropium 18 MCG inhalation IH SCH (08:39)
[2020-03-02] MEDS ORDERED: Metoprolol XL (24 HR) Succ 25 MG TAB.ER.24H PO SCH (09:00)
[2020-03-02 09:26] LABS: Basophils % 0.5 %; Eosinophils # 0.2 K/mcL (0.0-0.6); Immature Granulocytes % 0.3 % (0-4); Lymphocytes # 1.4 K/mcL (0.6-4.6); Lymphocytes % 18.3 %; Mean Corpuscular HGB Conc 29.8 g/dL (31.6-35.5); Mean Corpuscular Hemoglobin 28.2 pg (28.0-33.3); Mean Corpuscular Volume 94.8 fL (83.0-100.0); Mean Platelet Volume 12.7 fL (9.4-12.4); Monocytes # 0.6 K/mcL (0.0-1.3); Neutrophils # 5.3 K/mcL (1.6-8.9); Platelet Count 143 K/mcL (140-400); Red Blood Count 4.96 M/mcL (3.82-4.97); Red Cell Distribution Width 15.7 % (11.5-14.5); Segmented Neutrophils % 70.9 %; White Blood Count 7.4 K/mcL (4.3-11.1)
[2020-03-02 09:49] LABS: BUN/Creatinine Ratio 18 (6-26); Blood Urea Nitrogen 10 mg/dL (8-23); Calcium 8.9 mg/dL (8.6-10.3); Carbon Dioxide 39 mEq/L (23-29); Chloride 98 mEq/L (98-107); Glucose 92 mg/dL (70-105); Osmolality,Calculated 297 (280-300); Potassium 4.3 mEq/L (3.5-5.1); Sodium 144 mEq/L (136-145); eGFR For African Americans > 60 (> 60); eGFR For Non-African Americans > 60 (> 60)
[2020-03-03] MEDS: Levothyroxine 25 MCG TABLET PO SCH (05:50)
[2020-03-03] MEDS: Doxycycline 100 MG CAPSULE PO SCH ×2 (07:46→20:19)
[2020-03-03] MEDS: *HR* HYDROcodone/Acet 7.5/325 mg TABLET PO PRN ×2 (07:46→20:19)
[2020-03-03] MEDS: Metoprolol XL (24 HR) Succ 25 MG TAB.ER.24H PO SCH (07:46)
[2020-03-03] MEDS: Gabapentin 300 MG CAPSULE PO SCH ×3 (07:47→20:20)
[2020-03-03] MEDS: Cyanocobalamin (B-12) 1,000 MCG TABLET PO SCH (07:47)
[2020-03-03] MEDS: Cholecalciferol (D-3) 1,000 UNIT (25MCG) TABLET PO SCH (07:47)
[2020-03-03] MEDS: allopurinoL 100 MG TABLET PO SCH (07:47)
[2020-03-03] MEDS: Furosemide 40 MG TABLET PO SCH (07:47)
[2020-03-03] MEDS: Nystatin POWDER 30 GM BOTTLE TP SCH ×3 (07:51→20:22)
[2020-03-03] MEDS: Ketoconazole 2% CRM 15 GM TUBE TP SCH ×2 (07:51→20:22)
[2020-03-03] MEDS: Tiotropium 18 MCG inhalation IH SCH (10:35)
[2020-03-03] MEDS: Budesonide/Formoterol 80/4.5 1 PUFF INH IH SCH ×2 (10:35→21:04)
[2020-03-03] MEDS: Metoprolol XL (24 HR) Succ 50 MG TAB.ER.24H PO SCH (13:48)
[2020-03-04] MEDS: Cyanocobalamin (B-12) 1,000 MCG TABLET PO SCH (08:15)
[2020-03-04] MEDS: Doxycycline 100 MG CAPSULE PO SCH ×2 (08:15→20:00)
[2020-03-04] MEDS: allopurinoL 100 MG TABLET PO SCH (08:15)
[2020-03-04] MEDS: Metoprolol XL (24 HR) Succ 50 MG TAB.ER.24H PO SCH (08:15)
[2020-03-04] MEDS: Gabapentin 300 MG CAPSULE PO SCH ×3 (08:15→20:00)
[2020-03-04] MEDS: Levothyroxine 25 MCG TABLET PO SCH (08:15)
[2020-03-04] MEDS: Cholecalciferol (D-3) 1,000 UNIT (25MCG) TABLET PO SCH (08:15)
[2020-03-04] MEDS: Furosemide 40 MG TABLET PO SCH (08:16)
[2020-03-04] MEDS: Ketoconazole 2% CRM 15 GM TUBE TP SCH ×2 (08:18→21:32)
[2020-03-04] MEDS: Nystatin POWDER 30 GM BOTTLE TP SCH ×3 (08:18→21:33)
[2020-03-04] MEDS: Budesonide/Formoterol 80/4.5 1 PUFF INH IH SCH ×2 (10:10→21:11)
[2020-03-04] MEDS: Tiotropium 18 MCG inhalation IH SCH (10:15)
[2020-03-04] MEDS: Aspirin Enteric Coated 81 MG Tablet PO SCH (16:26)
[2020-03-04] MEDS: *HR* HYDROcodone/Acet 7.5/325 mg TABLET PO PRN (16:29)
[2020-03-05] MEDS: Levothyroxine 25 MCG TABLET PO SCH (06:15)
[2020-03-05] MEDS: Doxycycline 100 MG CAPSULE PO SCH ×2 (08:50→20:01)
[2020-03-05] MEDS: Gabapentin 300 MG CAPSULE PO SCH ×3 (08:50→20:01)
[2020-03-05] MEDS: Cholecalciferol (D-3) 1,000 UNIT (25MCG) TABLET PO SCH (08:50)
[2020-03-05] MEDS: Cyanocobalamin (B-12) 1,000 MCG TABLET PO SCH (08:50)
[2020-03-05] MEDS: Aspirin Enteric Coated 81 MG Tablet PO SCH (08:51)
[2020-03-05] MEDS: Nystatin POWDER 30 GM BOTTLE TP SCH ×3 (08:55→20:08)
[2020-03-05] MEDS: Ketoconazole 2% CRM 15 GM TUBE TP SCH ×2 (08:55→20:08)
[2020-03-05] MEDS: allopurinoL 100 MG TABLET PO SCH (08:59)
[2020-03-05] MEDS ORDERED: Sennosides/Docusate Sodium TABLET PO SCH (09:00)
[2020-03-05] MEDS: Furosemide 40 MG TABLET PO SCH (09:00)
[2020-03-05] MEDS: Metoprolol XL (24 HR) Succ 50 MG TAB.ER.24H PO SCH (09:00)
[2020-03-05] MEDS: *HR* HYDROcodone/Acet 7.5/325 mg TABLET PO PRN ×2 (09:16→20:03)
[2020-03-05] MEDS: Tiotropium 18 MCG inhalation IH SCH (10:42)
[2020-03-05] MEDS: Budesonide/Formoterol 80/4.5 1 PUFF INH IH SCH ×2 (10:43→22:22)
[2020-03-06] MEDS: Levothyroxine 25 MCG TABLET PO SCH (06:06)
[2020-03-06] MEDS: Doxycycline 100 MG CAPSULE PO SCH ×2 (08:37→20:14)
[2020-03-06] MEDS: Furosemide 40 MG TABLET PO SCH (08:37)
[2020-03-06] MEDS: *HR* HYDROcodone/Acet 7.5/325 mg TABLET PO PRN (08:37)
[2020-03-06] MEDS: Metoprolol XL (24 HR) Succ 50 MG TAB.ER.24H PO SCH (08:37)
[2020-03-06] MEDS: allopurinoL 100 MG TABLET PO SCH (08:37)
[2020-03-06] MEDS: Cholecalciferol (D-3) 1,000 UNIT (25MCG) TABLET PO SCH (08:37)
[2020-03-06] MEDS: Aspirin Enteric Coated 81 MG Tablet PO SCH (08:37)
[2020-03-06] MEDS: Gabapentin 300 MG CAPSULE PO SCH ×3 (08:37→20:15)
[2020-03-06] MEDS: Cyanocobalamin (B-12) 1,000 MCG TABLET PO SCH (08:37)
[2020-03-06] MEDS: Ketoconazole 2% CRM 15 GM TUBE TP SCH ×2 (08:40→20:17)
[2020-03-06] MEDS: Nystatin POWDER 30 GM BOTTLE TP SCH ×3 (08:40→20:17)
[2020-03-06] MEDS: Budesonide/Formoterol 80/4.5 1 PUFF INH IH SCH ×2 (08:54→21:40)
[2020-03-06] MEDS: Tiotropium 18 MCG inhalation IH SCH (08:54)
[2020-03-07] MEDS: Levothyroxine 25 MCG TABLET PO SCH (05:43)
[2020-03-07 06:58] VITALS: BP 95/54
[2020-03-07] MEDS: Gabapentin 300 MG CAPSULE PO SCH (08:13)
[2020-03-07] MEDS: *HR* HYDROcodone/Acet 7.5/325 mg TABLET PO PRN (08:13)
[2020-03-07] MEDS: allopurinoL 100 MG TABLET PO SCH (08:13)
[2020-03-07] MEDS: Cholecalciferol (D-3) 1,000 UNIT (25MCG) TABLET PO SCH (08:13)
[2020-03-07] MEDS: Aspirin Enteric Coated 81 MG Tablet PO SCH (08:13)
[2020-03-07] MEDS: Furosemide 40 MG TABLET PO SCH (08:13)
[2020-03-07] MEDS: Metoprolol XL (24 HR) Succ 50 MG TAB.ER.24H PO SCH (08:13)
[2020-03-07] MEDS: Doxycycline 100 MG CAPSULE PO SCH (08:13)
[2020-03-07] MEDS: Cyanocobalamin (B-12) 1,000 MCG TABLET PO SCH (08:13)
[2020-03-07] MEDS: Nystatin POWDER 30 GM BOTTLE TP SCH (08:15)
[2020-03-07] MEDS: Ketoconazole 2% CRM 15 GM TUBE TP SCH (08:16)
[2020-03-07] MEDS: Budesonide/Formoterol 80/4.5 1 PUFF INH IH SCH (08:36)
[2020-03-07] MEDS: Tiotropium 18 MCG inhalation IH SCH (08:36)
== END 2020-03-07 11:41 | disposition home health service (06) | DRG 603 ==
LOC: INPPIK 03-01 14:36
PROVIDERS: ADMIT Family Medicine; ATTEND Family Medicine

== ENCOUNTER 2020-05-17 10:36 | Inpatient (IN) ==
[2020-05-17] MEDS ORDERED: Ketorolac 60 MG/2 ML VIAL IM ONE (10:53)
[2020-05-17 11:12] LABS: Basophils # 0.1 K/mcL (0.0-0.2); Basophils % 0.6 %; Eosinophils # 0.1 K/mcL (0.0-0.6); Eosinophils % 0.8 %; Hematocrit 51.7 % (35.3-44.9); Hemoglobin 15.6 g/dL (11.5-15.4); Immature Granulocytes % 0.5 % (0-4); Lymphocytes # 1.7 K/mcL (0.6-4.6); Mean Corpuscular HGB Conc 30.2 g/dL (31.6-35.5); Mean Corpuscular Hemoglobin 28.6 pg (28.0-33.3); Mean Corpuscular Volume 94.9 fL (83.0-100.0); Mean Platelet Volume 11.7 fL (9.4-12.4); Monocytes # 0.6 K/mcL (0.0-1.3); Monocytes % 7.1 %; Neutrophils # 6.1 K/mcL (1.6-8.9); Platelet Count 121 K/mcL (140-400); Red Blood Count 5.45 M/mcL (3.82-4.97); Red Cell Distribution Width 17.5 % (11.5-14.5); White Blood Count 8.6 K/mcL (4.3-11.1)
[2020-05-17 11:26] LABS: BUN/Creatinine Ratio 11 (6-26); Blood Urea Nitrogen 8 mg/dL (8-23); Calcium 9.4 mg/dL (8.6-10.3); Carbon Dioxide 37 mEq/L (23-29); Chloride 98 mEq/L (98-107); Glucose 107 mg/dL (70-105); Osmolality,Calculated 287 (280-300); Potassium 4.6 mEq/L (3.5-5.1); Sodium 139 mEq/L (136-145); eGFR For African Americans > 60 (> 60); eGFR For Non-African Americans > 60 (> 60)
[2020-05-17 11:31] LABS: Troponin I < 0.03 ng/mL (< 0.04)
[2020-05-17] MEDS ORDERED: MOM Conc 10 ML UD.LIQ PO PRN (15:04)
[2020-05-17] MEDS ORDERED: Ondansetron 4 MG/2 ML VIAL IVP PRN (15:04)
[2020-05-17] MEDS ORDERED: Naloxone 0.4 MG/ML INJ IVP PRN (15:04)
[2020-05-17] MEDS ORDERED: Acetaminophen 325 MG TABLET PO PRN (15:04)
[2020-05-17] MEDS ORDERED: *HR* HYDROcodone/Acet 5/325 mg TABLET PO PRN (15:04)
[2020-05-17] MEDS: Clotrimazole 1% CRM 15 GM TUBE TP SCH (19:50)
[2020-05-17] MEDS: Gabapentin 300 MG CAPSULE PO SCH (19:50)
[2020-05-17] MEDS: Budesonide/Formoterol 80/4.5 1 PUFF INH IH SCH (21:09)
[2020-05-18 07:37] LABS: Basophils % 0.4 %; Eosinophils # 0.1 K/mcL (0.0-0.6); Eosinophils % 1.2 %; Hemoglobin 14.4 g/dL (11.5-15.4); Immature Granulocytes % 0.1 % (0-4); Lymphocytes # 1.5 K/mcL (0.6-4.6); Lymphocytes % 18.7 %; Mean Corpuscular HGB Conc 29.4 g/dL (31.6-35.5); Mean Corpuscular Hemoglobin 28.5 pg (28.0-33.3); Mean Corpuscular Volume 96.8 fL (83.0-100.0); Mean Platelet Volume 12.4 fL (9.4-12.4); Monocytes # 0.7 K/mcL (0.0-1.3); Monocytes % 8.1 %; Neutrophils # 5.8 K/mcL (1.6-8.9); Platelet Count 104 K/mcL (140-400); Red Blood Count 5.06 M/mcL (3.82-4.97); Red Cell Distribution Width 17.4 % (11.5-14.5); Segmented Neutrophils % 71.5 %
[2020-05-18 07:49] LABS: BUN/Creatinine Ratio 11 (6-26); Blood Urea Nitrogen 10 mg/dL (8-23); Calcium 8.9 mg/dL (8.6-10.3); Carbon Dioxide 37 mEq/L (23-29); Chloride 99 mEq/L (98-107); Glucose 96 mg/dL (70-105); Magnesium 1.9 mg/dL (1.6-2.6); Osmolality,Calculated 289 (280-300); Potassium 5.4 mEq/L (3.5-5.1); Sodium 140 mEq/L (136-145); eGFR For African Americans > 60 (> 60); eGFR For Non-African Americans > 60 (> 60)
[2020-05-18] MEDS ORDERED: Furosemide 40 MG TABLET PO SCH (09:00)
[2020-05-18] MEDS ORDERED: Cyanocobalamin (B-12) 1,000 MCG TABLET PO SCH (09:00)
[2020-05-18] MEDS ORDERED: Cholecalciferol (D-3) 1,000 UNIT (25MCG) TABLET PO SCH (09:00)
[2020-05-18] MEDS ORDERED: Metoprolol XL (24 HR) Succ 50 MG TAB.ER.24H PO SCH (09:00)
[2020-05-18] MEDS ORDERED: allopurinoL 100 MG TABLET PO SCH (09:00)
[2020-05-18] MEDS: Gabapentin 300 MG CAPSULE PO SCH ×2 (09:53→15:58)
[2020-05-18] MEDS: Clotrimazole 1% CRM 15 GM TUBE TP SCH (09:53)
[2020-05-18] MEDS ORDERED: Tiotropium 10 INH DOSE IH SCH (10:00)
[2020-05-18] MEDS ORDERED: methylPREDNISolone 125 MG/2 ML VIAL IVP ONE (10:24)
[2020-05-18] MEDS: Budesonide/Formoterol 80/4.5 1 PUFF INH IH SCH (10:29)
[2020-05-18] MEDS ORDERED: DilTIAZem 125 MG in D5% in Water 100 ML IVC SCH (11:45)
[2020-05-18] MEDS: Ipratropium/Albuterol Neb 3 ML IH SCH ×2 (14:33→16:35)
[2020-05-18 18:55] VITALS: BP 108/67
== END 2020-05-18 16:06 | disposition short-term general hospital (02) | DRG 309 ==
LOC: EMEROOPIK 10:36 → INPPIK 10:36
PROVIDERS: ADMIT Family Medicine; ATTEND Family Medicine

== ENCOUNTER 2020-05-20 14:00 | Inpatient (IN) ==
[2020-05-20] MEDS ORDERED: Ondansetron 4 MG/2 ML VIAL IVP PRN (21:46)
[2020-05-20] MEDS ORDERED: Acetaminophen 325 MG TABLET PO PRN (21:46)
[2020-05-20] MEDS ORDERED: Naloxone 0.4 MG/ML INJ IVP PRN (21:46)
[2020-05-20] MEDS: *HR* HYDROcodone/Acet 5/325 mg TABLET PO PRN (22:21)
[2020-05-21 06:22] LABS: Hematocrit 46.9 % (35.3-44.9); Hemoglobin 13.9 g/dL (11.5-15.4); Mean Corpuscular HGB Conc 29.6 g/dL (31.6-35.5); Mean Corpuscular Volume 97.7 fL (83.0-100.0); Mean Platelet Volume 12.2 fL (9.4-12.4); Platelet Count 106 K/mcL (140-400); Red Cell Distribution Width 17.2 % (11.5-14.5); White Blood Count 8.6 K/mcL (4.3-11.1)
[2020-05-21 06:44] LABS: BUN/Creatinine Ratio 23 (6-26); Blood Urea Nitrogen 13 mg/dL (8-23); Calcium 8.8 mg/dL (8.6-10.3); Chloride 97 mEq/L (98-107); Chol/HDL Ratio 2.9 (0-4.9); Cholesterol 112 mg/dL (< 200); HDL Cholesterol 38 mg/dL (40-59); LDL Cholesterol,Calculated 56 mg/dL (< 100); Magnesium 1.7 mg/dL (1.6-2.6); Potassium 4.4 mEq/L (3.5-5.1); Sodium 140 mEq/L (136-145); Triglycerides 88 mg/dL (< 150); eGFR For African Americans > 60 (> 60); eGFR For Non-African Americans > 60 (> 60)
[2020-05-21 06:47] LABS: Carbon Dioxide 37 mEq/L (23-29); Glucose 81 mg/dL (70-105); Osmolality,Calculated 289 (280-300)
[2020-05-21] MEDS ORDERED: Tiotropium 10 INH DOSE IH SCH (07:00)
[2020-05-21] MEDS: Budesonide/Formoterol 80/4.5 1 PUFF INH IH SCH ×2 (08:46→22:26)
[2020-05-21] MEDS: Furosemide 20 MG/2 ML VIAL IVP SCH ×2 (10:32→15:16)
[2020-05-21] MEDS: Cholecalciferol (D-3) 1,000 UNIT (25MCG) TABLET PO SCH ×2 (10:34→21:39)
[2020-05-21] MEDS: Nystatin POWDER 30 GM BOTTLE TP SCH ×2 (10:34→21:51)
[2020-05-21] MEDS: allopurinoL 100 MG TABLET PO SCH (10:34)
[2020-05-21] MEDS: Metoprolol XL (24 HR) Succ 50 MG TAB.ER.24H PO SCH (10:34)
[2020-05-21] MEDS: Gabapentin 300 MG CAPSULE PO SCH ×3 (10:34→21:39)
[2020-05-21] MEDS: Clotrimazole 1% CRM 15 GM TUBE TP SCH ×2 (10:35→21:51)
[2020-05-21] MEDS: *HR* HYDROcodone/Acet 5/325 mg TABLET PO PRN (21:39)
[2020-05-21] MEDS: Doxycycline 100 MG in 0.9 % Sodium Chloride Mini Bag 100 ML IVPB SCH (21:51)
[2020-05-22] MEDS: Doxycycline 100 MG in 0.9 % Sodium Chloride Mini Bag 100 ML IVPB SCH ×2 (05:41→18:04)
[2020-05-22 06:02] LABS: Hematocrit 47.5 % (35.3-44.9); Hemoglobin 13.9 g/dL (11.5-15.4); Mean Corpuscular HGB Conc 29.3 g/dL (31.6-35.5); Mean Corpuscular Hemoglobin 28.6 pg (28.0-33.3); Mean Corpuscular Volume 97.7 fL (83.0-100.0); Mean Platelet Volume 12.4 fL (9.4-12.4); Platelet Count 102 K/mcL (140-400); Red Blood Count 4.86 M/mcL (3.82-4.97); Red Cell Distribution Width 16.7 % (11.5-14.5); White Blood Count 8.2 K/mcL (4.3-11.1)
[2020-05-22 07:30] LABS: BUN/Creatinine Ratio 18 (6-26); Blood Urea Nitrogen 11 mg/dL (8-23); Calcium 8.8 mg/dL (8.6-10.3); Carbon Dioxide 42 mEq/L (23-29); Chloride 95 mEq/L (98-107); Glucose 91 mg/dL (70-105); Magnesium 1.7 mg/dL (1.6-2.6); Osmolality,Calculated 289 (280-300); Potassium 4.2 mEq/L (3.5-5.1); Sodium 140 mEq/L (136-145); eGFR For African Americans > 60 (> 60); eGFR For Non-African Americans > 60 (> 60)
[2020-05-22] MEDS: Cholecalciferol (D-3) 1,000 UNIT (25MCG) TABLET PO SCH ×2 (08:51→20:45)
[2020-05-22] MEDS: Metoprolol XL (24 HR) Succ 50 MG TAB.ER.24H PO SCH (08:51)
[2020-05-22] MEDS: Gabapentin 300 MG CAPSULE PO SCH ×3 (08:51→20:45)
[2020-05-22] MEDS: Furosemide 20 MG/2 ML VIAL IVP SCH (08:52)
[2020-05-22] MEDS: allopurinoL 100 MG TABLET PO SCH (08:52)
[2020-05-22] MEDS: Budesonide/Formoterol 80/4.5 1 PUFF INH IH SCH ×2 (11:17→21:44)
[2020-05-22] MEDS: Tiotropium 10 INH DOSE IH SCH (11:31)
[2020-05-22] MEDS: Clotrimazole 1% CRM 15 GM TUBE TP SCH ×2 (15:05→20:41)
[2020-05-22] MEDS: Nystatin POWDER 30 GM BOTTLE TP SCH ×2 (15:06→20:41)
[2020-05-22] MEDS: *HR* Digoxin 0.125 MG TABLET PO SCH (15:44)
[2020-05-22] MEDS: Furosemide 40 MG/4 ML VIAL IVP SCH (15:46)
[2020-05-22] MEDS: *HR* HYDROcodone/Acet 5/325 mg TABLET PO PRN (20:45)
[2020-05-23] MEDS: Doxycycline 100 MG in 0.9 % Sodium Chloride Mini Bag 100 ML IVPB SCH ×3 (05:54→20:36)
[2020-05-23 10:10] LABS: Hematocrit 48.4 % (35.3-44.9); Hemoglobin 14.3 g/dL (11.5-15.4); Mean Corpuscular HGB Conc 29.5 g/dL (31.6-35.5); Mean Corpuscular Hemoglobin 28.7 pg (28.0-33.3); Mean Corpuscular Volume 97.2 fL (83.0-100.0); Mean Platelet Volume 11.7 fL (9.4-12.4); Red Blood Count 4.98 M/mcL (3.82-4.97); Red Cell Distribution Width 16.6 % (11.5-14.5); White Blood Count 7.6 K/mcL (4.3-11.1)
[2020-05-23 10:21] LABS: Platelet Count 97 K/mcL (140-400)
[2020-05-23 10:24] LABS: VBG HCO3 43 mEq/L (21-27); VBG PCO2 80 mmHg (41-51); VBG PH 7.34 pH Units (7.32-7.42); VBG PO2 90 mmHg (25-50)
[2020-05-23 10:32] LABS: BUN/Creatinine Ratio 25 (6-26); Blood Urea Nitrogen 13 mg/dL (8-23); Calcium 9.1 mg/dL (8.6-10.3); Carbon Dioxide 44 mEq/L (23-29); Chloride 94 mEq/L (98-107); Glucose 117 mg/dL (70-105); Osmolality,Calculated 297 (280-300); Sodium 143 mEq/L (136-145); eGFR For African Americans > 60 (> 60); eGFR For Non-African Americans > 60 (> 60)
[2020-05-23] MEDS: Tiotropium 10 INH DOSE IH SCH (10:48)
[2020-05-23] MEDS: Budesonide/Formoterol 80/4.5 1 PUFF INH IH SCH ×2 (10:48→21:41)
[2020-05-23] MEDS: Furosemide 40 MG/4 ML VIAL IVP SCH (10:53)
[2020-05-23] MEDS: Cholecalciferol (D-3) 1,000 UNIT (25MCG) TABLET PO SCH ×2 (11:00→20:36)
[2020-05-23] MEDS: Gabapentin 300 MG CAPSULE PO SCH ×3 (11:00→20:36)
[2020-05-23] MEDS: allopurinoL 100 MG TABLET PO SCH (11:00)
[2020-05-23] MEDS: Metoprolol XL (24 HR) Succ 50 MG TAB.ER.24H PO SCH (11:00)
[2020-05-23] MEDS: *HR* Digoxin 0.125 MG TABLET PO SCH (11:01)
[2020-05-23] MEDS: Furosemide 20 MG/2 ML VIAL IVP SCH ×3 (11:01→20:36)
[2020-05-23] MEDS: Nystatin POWDER 30 GM BOTTLE TP SCH ×2 (11:02→21:04)
[2020-05-23] MEDS: Clotrimazole 1% CRM 15 GM TUBE TP SCH ×2 (11:02→21:03)
[2020-05-23] MEDS: acetaZOLAMIDE 250 MG TABLET PO SCH (20:36)
[2020-05-23] MEDS: *HR* HYDROcodone/Acet 5/325 mg TABLET PO PRN (23:37)
[2020-05-24 07:23] LABS: Hematocrit 45.8 % (35.3-44.9); Hemoglobin 13.5 g/dL (11.5-15.4); Mean Corpuscular HGB Conc 29.5 g/dL (31.6-35.5); Mean Corpuscular Hemoglobin 28.7 pg (28.0-33.3); Mean Corpuscular Volume 97.2 fL (83.0-100.0); Platelet Count 108 K/mcL (140-400); Red Blood Count 4.71 M/mcL (3.82-4.97); Red Cell Distribution Width 16.4 % (11.5-14.5); White Blood Count 8.5 K/mcL (4.3-11.1)
[2020-05-24 07:55] LABS: BUN/Creatinine Ratio 19 (6-26); Blood Urea Nitrogen 11 mg/dL (8-23); Calcium 8.9 mg/dL (8.6-10.3); Carbon Dioxide 41 mEq/L (23-29); Chloride 95 mEq/L (98-107); Glucose 103 mg/dL (70-105); Magnesium 1.8 mg/dL (1.6-2.6); Osmolality,Calculated 290 (280-300); Potassium 3.7 mEq/L (3.5-5.1); Sodium 140 mEq/L (136-145); eGFR For African Americans > 60 (> 60); eGFR For Non-African Americans > 60 (> 60)
[2020-05-24] MEDS: *HR* Digoxin 0.125 MG TABLET PO SCH (08:50)
[2020-05-24] MEDS: Cholecalciferol (D-3) 1,000 UNIT (25MCG) TABLET PO SCH ×2 (08:50→20:28)
[2020-05-24] MEDS: Gabapentin 300 MG CAPSULE PO SCH ×3 (08:51→20:28)
[2020-05-24] MEDS: allopurinoL 100 MG TABLET PO SCH (08:52)
[2020-05-24] MEDS: acetaZOLAMIDE 250 MG TABLET PO SCH ×2 (08:52→20:28)
[2020-05-24] MEDS: Doxycycline 100 MG in 0.9 % Sodium Chloride Mini Bag 100 ML IVPB SCH ×2 (08:53→20:28)
[2020-05-24] MEDS: Furosemide 20 MG/2 ML VIAL IVP SCH ×2 (08:54→17:31)
[2020-05-24] MEDS: Nystatin POWDER 30 GM BOTTLE TP SCH ×2 (08:54→20:29)
[2020-05-24] MEDS: Clotrimazole 1% CRM 15 GM TUBE TP SCH ×2 (08:54→20:29)
[2020-05-24] MEDS: Metoprolol XL (24 HR) Succ 50 MG TAB.ER.24H PO SCH (09:04)
[2020-05-24] MEDS: Tiotropium 10 INH DOSE IH SCH (09:43)
[2020-05-24] MEDS: Budesonide/Formoterol 80/4.5 1 PUFF INH IH SCH ×2 (09:43→22:20)
[2020-05-24] MEDS: *HR* HYDROcodone/Acet 5/325 mg TABLET PO PRN (20:28)
[2020-05-25 05:22] LABS: Basophils # 0.1 K/mcL (0.0-0.2); Basophils % 0.7 %; Eosinophils # 0.2 K/mcL (0.0-0.6); Eosinophils % 2.5 %; Hematocrit 46.8 % (35.3-44.9); Hemoglobin 13.8 g/dL (11.5-15.4); Immature Granulocytes % 0.2 % (0-4); Lymphocytes # 1.8 K/mcL (0.6-4.6); Lymphocytes % 20.7 %; Mean Corpuscular HGB Conc 29.5 g/dL (31.6-35.5); Mean Corpuscular Hemoglobin 28.8 pg (28.0-33.3); Mean Corpuscular Volume 97.5 fL (83.0-100.0); Mean Platelet Volume 12.3 fL (9.4-12.4); Monocytes # 0.7 K/mcL (0.0-1.3); Neutrophils # 5.9 K/mcL (1.6-8.9); Platelet Count 114 K/mcL (140-400); Red Cell Distribution Width 16.4 % (11.5-14.5); Segmented Neutrophils % 67.9 %; White Blood Count 8.7 K/mcL (4.3-11.1)
[2020-05-25 07:21] LABS: BUN/Creatinine Ratio 20 (6-26); Blood Urea Nitrogen 15 mg/dL (8-23); Calcium 8.9 mg/dL (8.6-10.3); Carbon Dioxide 41 mEq/L (23-29); Chloride 99 mEq/L (98-107); Glucose 103 mg/dL (70-105); Osmolality,Calculated 297 (280-300); Potassium 4.1 mEq/L (3.5-5.1); Sodium 143 mEq/L (136-145); eGFR For African Americans > 60 (> 60); eGFR For Non-African Americans > 60 (> 60)
[2020-05-25 07:30] LABS: ABG Base Excess 9 mEq/L (-2 to 3); ABG HCO3 39 mEq/L (21-27); ABG Oxygen Saturation 93 % (95-98); ABG PCO2 78 mmHg (35-45); ABG PH 7.31 pH Units (7.32-7.45); ABG PO2 76 mmHg (85-104); ABG TCO2 41 mEq/L (20-26)
[2020-05-25] MEDS: Budesonide/Formoterol 80/4.5 1 PUFF INH IH SCH ×2 (08:10→23:29)
[2020-05-25] MEDS: Tiotropium 10 INH DOSE IH SCH (08:11)
[2020-05-25] MEDS: Gabapentin 300 MG CAPSULE PO SCH ×3 (09:49→20:26)
[2020-05-25] MEDS: Cholecalciferol (D-3) 1,000 UNIT (25MCG) TABLET PO SCH ×2 (09:49→20:26)
[2020-05-25] MEDS: Furosemide 20 MG/2 ML VIAL IVP SCH ×2 (09:49→15:19)
[2020-05-25] MEDS: *HR* Digoxin 0.125 MG TABLET PO SCH (09:49)
[2020-05-25] MEDS: acetaZOLAMIDE 250 MG TABLET PO SCH ×2 (09:49→20:26)
[2020-05-25] MEDS: Nystatin POWDER 30 GM BOTTLE TP SCH ×2 (09:50→20:27)
[2020-05-25] MEDS: Metoprolol XL (24 HR) Succ 50 MG TAB.ER.24H PO SCH (09:50)
[2020-05-25] MEDS: allopurinoL 100 MG TABLET PO SCH (09:50)
[2020-05-25] MEDS: *HR* HYDROcodone/Acet 5/325 mg TABLET PO PRN (09:50)
[2020-05-25] MEDS: Doxycycline 100 MG in 0.9 % Sodium Chloride Mini Bag 100 ML IVPB SCH ×2 (09:51→20:27)
[2020-05-25] MEDS: Clotrimazole 1% CRM 15 GM TUBE TP SCH ×2 (09:52→20:26)
[2020-05-25] MEDS ORDERED: methylPREDNISolone 125 MG/2 ML VIAL IVP ONE (16:11)
[2020-05-25 16:51] LABS: ABG Base Excess 8 mEq/L (-2 to 3); ABG HCO3 39 mEq/L (21-27); ABG Oxygen Saturation 94 % (95-98); ABG PCO2 82 mmHg (35-45); ABG PH 7.29 pH Units (7.32-7.45); ABG PO2 83 mmHg (85-104); ABG TCO2 42 mEq/L (20-26); Blood Gas Pressure Support 16 cm H2O
[2020-05-25 20:17] LABS: ABG Base Excess 7 mEq/L (-2 to 3); ABG HCO3 37 mEq/L (21-27); ABG Oxygen Saturation 90 % (95-98); ABG PCO2 77 mmHg (35-45); ABG PH 7.29 pH Units (7.32-7.45); ABG PO2 69 mmHg (85-104); ABG TCO2 39 mEq/L (20-26); Blood Gas Modality BiLevel
[2020-05-26 00:39] LABS: ABG Base Excess 7 mEq/L (-2 to 3); ABG HCO3 38 mEq/L (21-27); ABG Oxygen Saturation 89 % (95-98); ABG PCO2 77 mmHg (35-45); ABG PO2 65 mmHg (85-104); ABG TCO2 40 mEq/L (20-26)
[2020-05-26] MEDS: MethylPREDNISolone 40 MG/ML VIAL IVP SCH ×3 (02:09→17:47)
[2020-05-26 07:28] LABS: Basophils % 0.2 %; Hematocrit 48.7 % (35.3-44.9); Hemoglobin 14.5 g/dL (11.5-15.4); Immature Granulocytes % 0.3 % (0-4); Lymphocytes # 0.4 K/mcL (0.6-4.6); Lymphocytes % 6.8 %; Mean Corpuscular HGB Conc 29.8 g/dL (31.6-35.5); Mean Corpuscular Hemoglobin 28.5 pg (28.0-33.3); Mean Corpuscular Volume 95.7 fL (83.0-100.0); Mean Platelet Volume 12.2 fL (9.4-12.4); Monocytes # 0.1 K/mcL (0.0-1.3); Monocytes % 0.8 %; Neutrophils # 5.7 K/mcL (1.6-8.9); Platelet Count 126 K/mcL (140-400); Red Blood Count 5.09 M/mcL (3.82-4.97); Red Cell Distribution Width 15.9 % (11.5-14.5); Segmented Neutrophils % 91.9 %; White Blood Count 6.2 K/mcL (4.3-11.1)
[2020-05-26 07:51] LABS: BUN/Creatinine Ratio 30 (6-26); Blood Urea Nitrogen 17 mg/dL (8-23); Calcium 9.1 mg/dL (8.6-10.3); Carbon Dioxide 36 mEq/L (23-29); Chloride 102 mEq/L (98-107); Glucose 137 mg/dL (70-105); Osmolality,Calculated 298 (280-300); Potassium 3.5 mEq/L (3.5-5.1); Sodium 142 mEq/L (136-145); eGFR For African Americans > 60 (> 60); eGFR For Non-African Americans > 60 (> 60)
[2020-05-26 08:45] LABS: ABG Base Excess 6 mEq/L (-2 to 3); ABG HCO3 36 mEq/L (21-27); ABG Oxygen Saturation 86 % (95-98); ABG PCO2 76 mmHg (35-45); ABG PH 7.29 pH Units (7.32-7.45); ABG PO2 59 mmHg (85-104); ABG TCO2 39 mEq/L (20-26)
[2020-05-26] MEDS: Furosemide 20 MG/2 ML VIAL IVP SCH ×2 (10:07→17:48)
[2020-05-26] MEDS: *HR* Digoxin 0.125 MG TABLET PO SCH (10:08)
[2020-05-26] MEDS: Metoprolol XL (24 HR) Succ 50 MG TAB.ER.24H PO SCH (10:08)
[2020-05-26] MEDS: Cholecalciferol (D-3) 1,000 UNIT (25MCG) TABLET PO SCH ×2 (10:08→20:47)
[2020-05-26] MEDS: Gabapentin 300 MG CAPSULE PO SCH ×3 (10:08→20:48)
[2020-05-26] MEDS: allopurinoL 100 MG TABLET PO SCH (10:09)
[2020-05-26] MEDS: acetaZOLAMIDE 250 MG TABLET PO SCH ×2 (10:09→20:48)
[2020-05-26] MEDS: Doxycycline 100 MG in 0.9 % Sodium Chloride Mini Bag 100 ML IVPB SCH ×2 (10:10→22:13)
[2020-05-26] MEDS: Clotrimazole 1% CRM 15 GM TUBE TP SCH ×2 (10:10→20:51)
[2020-05-26] MEDS: Nystatin POWDER 30 GM BOTTLE TP SCH ×2 (10:10→20:49)
[2020-05-26] MEDS: Budesonide/Formoterol 80/4.5 1 PUFF INH IH SCH ×2 (11:23→22:49)
[2020-05-26] MEDS: Tiotropium 10 INH DOSE IH SCH (11:23)
[2020-05-26 13:01] LABS: ABG Base Excess 5 mEq/L (-2 to 3); ABG HCO3 35 mEq/L (21-27); ABG Oxygen Saturation 91 % (95-98); ABG PCO2 67 mmHg (35-45); ABG PH 7.32 pH Units (7.32-7.45); ABG PO2 68 mmHg (85-104); ABG TCO2 37 mEq/L (20-26); Blood Gas Modality AVAPS; Blood Gas VT 500 cc
[2020-05-27] MEDS: MethylPREDNISolone 40 MG/ML VIAL IVP SCH ×3 (01:18→16:04)
[2020-05-27 07:14] LABS: Basophils % 0.1 %; Hematocrit 48.9 % (35.3-44.9); Hemoglobin 14.4 g/dL (11.5-15.4); Immature Granulocytes % 0.5 % (0-4); Lymphocytes # 0.5 K/mcL (0.6-4.6); Lymphocytes % 6.1 %; Mean Corpuscular HGB Conc 29.4 g/dL (31.6-35.5); Mean Corpuscular Hemoglobin 28.3 pg (28.0-33.3); Mean Corpuscular Volume 96.1 fL (83.0-100.0); Mean Platelet Volume 12.8 fL (9.4-12.4); Monocytes # 0.2 K/mcL (0.0-1.3); Monocytes % 2.1 %; Neutrophils # 7.9 K/mcL (1.6-8.9); Platelet Count 139 K/mcL (140-400); Red Blood Count 5.09 M/mcL (3.82-4.97); Red Cell Distribution Width 15.8 % (11.5-14.5); Segmented Neutrophils % 91.2 %; White Blood Count 8.6 K/mcL (4.3-11.1)
[2020-05-27 07:22] LABS: BUN/Creatinine Ratio 33 (6-26); Blood Urea Nitrogen 19 mg/dL (8-23); Calcium 8.9 mg/dL (8.6-10.3); Carbon Dioxide 35 mEq/L (23-29); Chloride 102 mEq/L (98-107); Glucose 138 mg/dL (70-105); Osmolality,Calculated 298 (280-300); Potassium 3.7 mEq/L (3.5-5.1); Sodium 142 mEq/L (136-145); eGFR For African Americans > 60 (> 60); eGFR For Non-African Americans > 60 (> 60)
[2020-05-27] MEDS: Metoprolol XL (24 HR) Succ 50 MG TAB.ER.24H PO SCH (08:44)
[2020-05-27] MEDS: acetaZOLAMIDE 250 MG TABLET PO SCH ×2 (08:44→20:56)
[2020-05-27] MEDS: Gabapentin 300 MG CAPSULE PO SCH ×3 (08:44→20:57)
[2020-05-27] MEDS: Doxycycline 100 MG in 0.9 % Sodium Chloride Mini Bag 100 ML IVPB SCH ×2 (08:44→20:57)
[2020-05-27] MEDS: Cholecalciferol (D-3) 1,000 UNIT (25MCG) TABLET PO SCH ×2 (08:44→20:56)
[2020-05-27] MEDS: allopurinoL 100 MG TABLET PO SCH (08:44)
[2020-05-27] MEDS: *HR* Digoxin 0.125 MG TABLET PO SCH (08:44)
[2020-05-27] MEDS: Furosemide 20 MG/2 ML VIAL IVP SCH ×2 (08:45→16:04)
[2020-05-27] MEDS: Clotrimazole 1% CRM 15 GM TUBE TP SCH ×2 (09:03→20:58)
[2020-05-27] MEDS: Nystatin POWDER 30 GM BOTTLE TP SCH ×2 (09:04→20:58)
[2020-05-27] MEDS: Budesonide/Formoterol 80/4.5 1 PUFF INH IH SCH ×2 (09:09→23:20)
[2020-05-27] MEDS: Tiotropium 10 INH DOSE IH SCH (09:09)
[2020-05-28] MEDS: MethylPREDNISolone 40 MG/ML VIAL IVP SCH ×2 (00:33→08:40)
[2020-05-28] MEDS: Metoprolol XL (24 HR) Succ 50 MG TAB.ER.24H PO SCH (08:41)
[2020-05-28] MEDS: Doxycycline 100 MG in 0.9 % Sodium Chloride Mini Bag 100 ML IVPB SCH (08:41)
[2020-05-28] MEDS: allopurinoL 100 MG TABLET PO SCH (08:41)
[2020-05-28] MEDS: acetaZOLAMIDE 250 MG TABLET PO SCH (08:41)
[2020-05-28] MEDS: Furosemide 20 MG/2 ML VIAL IVP SCH (08:41)
[2020-05-28] MEDS: Cholecalciferol (D-3) 1,000 UNIT (25MCG) TABLET PO SCH (08:41)
[2020-05-28] MEDS: Gabapentin 300 MG CAPSULE PO SCH ×2 (08:42→14:05)
[2020-05-28] MEDS: *HR* Digoxin 0.125 MG TABLET PO SCH (08:42)
[2020-05-28] MEDS: Nystatin POWDER 30 GM BOTTLE TP SCH (08:49)
[2020-05-28] MEDS: Clotrimazole 1% CRM 15 GM TUBE TP SCH (08:49)
[2020-05-28] MEDS: Tiotropium 10 INH DOSE IH SCH (10:45)
[2020-05-28] MEDS: Budesonide/Formoterol 80/4.5 1 PUFF INH IH SCH (10:45)
[2020-05-28 14:14] VITALS: BP 120/63
== END 2020-05-28 15:14 | DRG 291 ==
LOC: INPPIK 19:57
PROVIDERS: ADMIT Family Medicine; ATTEND Family Medicine

== ENCOUNTER 2020-05-28 14:27 | Inpatient (IN) ==
[2020-05-28] MEDS: Furosemide 40 MG TABLET PO SCH (17:10)
[2020-05-28] MEDS: Cholecalciferol (D-3) 1,000 UNIT (25MCG) TABLET PO SCH (20:32)
[2020-05-28] MEDS: Clotrimazole 1% CRM 15 GM TUBE TP SCH (20:33)
[2020-05-28] MEDS: Nystatin POWDER 30 GM BOTTLE TP SCH (20:33)
[2020-05-28] MEDS: Budesonide/Formoterol 80/4.5 1 PUFF INH IH SCH (23:03)
[2020-05-29 05:37] LABS: Basophils % 0.1 %; Hematocrit 50.8 % (35.3-44.9); Hemoglobin 15.2 g/dL (11.5-15.4); Immature Granulocytes % 0.3 % (0-4); Lymphocytes # 1.1 K/mcL (0.6-4.6); Lymphocytes % 10.9 %; Mean Corpuscular HGB Conc 29.9 g/dL (31.6-35.5); Mean Corpuscular Hemoglobin 28.6 pg (28.0-33.3); Mean Corpuscular Volume 95.7 fL (83.0-100.0); Mean Platelet Volume 12.4 fL (9.4-12.4); Monocytes # 0.8 K/mcL (0.0-1.3); Monocytes % 8.3 %; Neutrophils # 7.9 K/mcL (1.6-8.9); Platelet Count 152 K/mcL (140-400); Red Blood Count 5.31 M/mcL (3.82-4.97); Segmented Neutrophils % 80.4 %; White Blood Count 9.9 K/mcL (4.3-11.1)
[2020-05-29 05:57] LABS: BUN/Creatinine Ratio 46 (6-26); Blood Urea Nitrogen 26 mg/dL (8-23); Carbon Dioxide 32 mEq/L (23-29); Chloride 102 mEq/L (98-107); Glucose 114 mg/dL (70-105); Osmolality,Calculated 298 (280-300); Potassium 4.1 mEq/L (3.5-5.1); Sodium 141 mEq/L (136-145); eGFR For African Americans > 60 (> 60); eGFR For Non-African Americans > 60 (> 60)
[2020-05-29] MEDS: Tiotropium 10 INH DOSE IH SCH (07:45)
[2020-05-29] MEDS: Budesonide/Formoterol 80/4.5 1 PUFF INH IH SCH ×2 (07:46→21:24)
[2020-05-29] MEDS: Furosemide 40 MG TABLET PO SCH ×2 (07:58→17:48)
[2020-05-29] MEDS: Cholecalciferol (D-3) 1,000 UNIT (25MCG) TABLET PO SCH ×2 (07:58→21:34)
[2020-05-29] MEDS: Nystatin POWDER 30 GM BOTTLE TP SCH ×2 (07:58→21:37)
[2020-05-29] MEDS: allopurinoL 100 MG TABLET PO SCH (07:58)
[2020-05-29] MEDS: Metoprolol XL (24 HR) Succ 50 MG TAB.ER.24H PO SCH (07:58)
[2020-05-29] MEDS: Clotrimazole 1% CRM 15 GM TUBE TP SCH ×2 (07:59→21:37)
[2020-05-29 17:05] LABS: ABG Base Excess 7 mEq/L (-2 to 3); ABG HCO3 34 mEq/L (21-27); ABG Oxygen Saturation 96 % (95-98); ABG PCO2 56 mmHg (35-45); ABG PH 7.39 pH Units (7.32-7.45); ABG PO2 82 mmHg (85-104); ABG TCO2 36 mEq/L (20-26)
[2020-05-29] MEDS: *HR* HYDROcodone/Acet 7.5/325 mg TABLET PO PRN (21:43)
[2020-05-30] MEDS: Budesonide/Formoterol 80/4.5 1 PUFF INH IH SCH ×2 (07:52→21:50)
[2020-05-30] MEDS: Tiotropium 10 INH DOSE IH SCH (07:52)
[2020-05-30] MEDS: Cholecalciferol (D-3) 1,000 UNIT (25MCG) TABLET PO SCH ×2 (09:20→21:55)
[2020-05-30] MEDS: Metoprolol XL (24 HR) Succ 50 MG TAB.ER.24H PO SCH (09:20)
[2020-05-30] MEDS: allopurinoL 100 MG TABLET PO SCH (09:20)
[2020-05-30] MEDS: Furosemide 40 MG TABLET PO SCH ×2 (09:21→18:45)
[2020-05-30] MEDS: Clotrimazole 1% CRM 15 GM TUBE TP SCH ×2 (09:23→21:55)
[2020-05-30] MEDS: Nystatin POWDER 30 GM BOTTLE TP SCH ×2 (09:23→21:55)
[2020-05-30] MEDS: *HR* HYDROcodone/Acet 7.5/325 mg TABLET PO PRN (13:12)
[2020-05-31] MEDS: Cholecalciferol (D-3) 1,000 UNIT (25MCG) TABLET PO SCH ×2 (08:22→20:56)
[2020-05-31] MEDS: Furosemide 40 MG TABLET PO SCH ×2 (08:22→17:21)
[2020-05-31] MEDS: allopurinoL 100 MG TABLET PO SCH (08:22)
[2020-05-31] MEDS: Metoprolol XL (24 HR) Succ 50 MG TAB.ER.24H PO SCH (08:23)
[2020-05-31] MEDS: Nystatin POWDER 30 GM BOTTLE TP SCH ×2 (08:31→20:54)
[2020-05-31] MEDS: Clotrimazole 1% CRM 15 GM TUBE TP SCH ×2 (08:31→20:54)
[2020-05-31] MEDS: Budesonide/Formoterol 80/4.5 1 PUFF INH IH SCH ×2 (10:34→21:18)
[2020-05-31] MEDS: Tiotropium 10 INH DOSE IH SCH (10:35)
[2020-05-31] MEDS ORDERED: Ondansetron 4 MG/2 ML VIAL IVP PRN (12:08)
[2020-05-31] MEDS: *HR* HYDROcodone/Acet 7.5/325 mg TABLET PO PRN (17:38)
[2020-06-01] MEDS: Tiotropium 10 INH DOSE IH SCH (09:47)
[2020-06-01] MEDS: Budesonide/Formoterol 80/4.5 1 PUFF INH IH SCH ×2 (09:47→22:59)
[2020-06-01] MEDS: Cholecalciferol (D-3) 1,000 UNIT (25MCG) TABLET PO SCH ×2 (09:49→19:58)
[2020-06-01] MEDS: Furosemide 40 MG TABLET PO SCH ×2 (09:49→16:21)
[2020-06-01] MEDS: Metoprolol XL (24 HR) Succ 50 MG TAB.ER.24H PO SCH (09:49)
[2020-06-01] MEDS: allopurinoL 100 MG TABLET PO SCH (09:49)
[2020-06-01] MEDS: Nystatin POWDER 30 GM BOTTLE TP SCH ×2 (09:50→19:59)
[2020-06-01] MEDS: Clotrimazole 1% CRM 15 GM TUBE TP SCH ×2 (09:50→20:05)
[2020-06-01] MEDS: *HR* HYDROcodone/Acet 7.5/325 mg TABLET PO PRN (18:19)
[2020-06-02] MEDS: Cholecalciferol (D-3) 1,000 UNIT (25MCG) TABLET PO SCH ×2 (09:03→20:49)
[2020-06-02] MEDS: Furosemide 40 MG TABLET PO SCH ×2 (09:03→15:53)
[2020-06-02] MEDS: Metoprolol XL (24 HR) Succ 50 MG TAB.ER.24H PO SCH (09:03)
[2020-06-02] MEDS: allopurinoL 100 MG TABLET PO SCH (09:03)
[2020-06-02] MEDS: Tiotropium 10 INH DOSE IH SCH (10:31)
[2020-06-02] MEDS: Budesonide/Formoterol 80/4.5 1 PUFF INH IH SCH ×2 (10:31→22:20)
[2020-06-02] MEDS: *HR* HYDROcodone/Acet 7.5/325 mg TABLET PO PRN (11:01)
[2020-06-02] MEDS: Clotrimazole 1% CRM 15 GM TUBE TP SCH ×2 (11:45→20:51)
[2020-06-02] MEDS: Nystatin POWDER 30 GM BOTTLE TP SCH ×2 (11:47→20:51)
[2020-06-03 06:14] LABS: Hematocrit 48.8 % (35.3-44.9); Hemoglobin 15.4 g/dL (11.5-15.4); Mean Corpuscular HGB Conc 31.6 g/dL (31.6-35.5); Mean Corpuscular Hemoglobin 29.1 pg (28.0-33.3); Mean Corpuscular Volume 92.1 fL (83.0-100.0); Mean Platelet Volume 12.1 fL (9.4-12.4); Platelet Count 172 K/mcL (140-400); Red Cell Distribution Width 15.8 % (11.5-14.5); White Blood Count 11.1 K/mcL (4.3-11.1)
[2020-06-03 07:17] LABS: BUN/Creatinine Ratio 23 (6-26); Blood Urea Nitrogen 10 mg/dL (8-23); Calcium 9.2 mg/dL (8.6-10.3); Carbon Dioxide 42 mEq/L (23-29); Chloride 95 mEq/L (98-107); Glucose 100 mg/dL (70-105); Osmolality,Calculated 293 (280-300); Potassium 3.8 mEq/L (3.5-5.1); Sodium 142 mEq/L (136-145); eGFR For African Americans > 60 (> 60); eGFR For Non-African Americans > 60 (> 60)
[2020-06-03] MEDS: Metoprolol XL (24 HR) Succ 50 MG TAB.ER.24H PO SCH (08:26)
[2020-06-03] MEDS: Cholecalciferol (D-3) 1,000 UNIT (25MCG) TABLET PO SCH ×2 (08:26→21:19)
[2020-06-03] MEDS: allopurinoL 100 MG TABLET PO SCH (08:27)
[2020-06-03] MEDS: Furosemide 40 MG TABLET PO SCH ×2 (08:27→18:03)
[2020-06-03] MEDS: Tiotropium 10 INH DOSE IH SCH (08:51)
[2020-06-03] MEDS: Budesonide/Formoterol 80/4.5 1 PUFF INH IH SCH ×2 (08:52→22:21)
[2020-06-03] MEDS: *HR* HYDROcodone/Acet 7.5/325 mg TABLET PO PRN (14:20)
[2020-06-03] MEDS: Clotrimazole 1% CRM 15 GM TUBE TP SCH ×3 (14:21→21:20)
[2020-06-03] MEDS: Nystatin POWDER 30 GM BOTTLE TP SCH ×3 (14:21→21:20)
[2020-06-04] MEDS: Budesonide/Formoterol 80/4.5 1 PUFF INH IH SCH ×2 (08:32→21:45)
[2020-06-04] MEDS: Tiotropium 10 INH DOSE IH SCH (08:32)
[2020-06-04] MEDS: *HR* HYDROcodone/Acet 7.5/325 mg TABLET PO PRN (08:52)
[2020-06-04] MEDS: Clotrimazole 1% CRM 15 GM TUBE TP SCH ×2 (08:53→21:15)
[2020-06-04] MEDS: allopurinoL 100 MG TABLET PO SCH (08:53)
[2020-06-04] MEDS: Nystatin POWDER 30 GM BOTTLE TP SCH ×2 (08:53→21:15)
[2020-06-04] MEDS: Metoprolol XL (24 HR) Succ 50 MG TAB.ER.24H PO SCH (08:53)
[2020-06-04] MEDS: Cholecalciferol (D-3) 1,000 UNIT (25MCG) TABLET PO SCH ×2 (08:53→21:16)
[2020-06-04] MEDS: Furosemide 40 MG TABLET PO SCH ×2 (08:53→17:01)
[2020-06-05] MEDS: *HR* HYDROcodone/Acet 7.5/325 mg TABLET PO PRN ×2 (03:51→20:27)
[2020-06-05] MEDS: allopurinoL 100 MG TABLET PO SCH (09:07)
[2020-06-05] MEDS: Furosemide 40 MG TABLET PO SCH ×2 (09:07→17:13)
[2020-06-05] MEDS: Metoprolol XL (24 HR) Succ 50 MG TAB.ER.24H PO SCH (09:07)
[2020-06-05] MEDS: Nystatin POWDER 30 GM BOTTLE TP SCH ×2 (09:07→20:33)
[2020-06-05] MEDS: Cholecalciferol (D-3) 1,000 UNIT (25MCG) TABLET PO SCH ×2 (09:07→20:27)
[2020-06-05] MEDS: Budesonide/Formoterol 80/4.5 1 PUFF INH IH SCH ×2 (11:02→20:52)
[2020-06-05] MEDS: Tiotropium 10 INH DOSE IH SCH (11:02)
[2020-06-05] MEDS: Clotrimazole 1% CRM 15 GM TUBE TP SCH ×2 (12:27→20:33)
[2020-06-06 06:22] LABS: BUN/Creatinine Ratio 20 (6-26); Blood Urea Nitrogen 11 mg/dL (8-23); Calcium 9.4 mg/dL (8.6-10.3); Carbon Dioxide 40 mEq/L (23-29); Chloride 96 mEq/L (98-107); Glucose 89 mg/dL (70-105); Osmolality,Calculated 293 (280-300); Potassium 3.8 mEq/L (3.5-5.1); Sodium 142 mEq/L (136-145); eGFR For African Americans > 60 (> 60); eGFR For Non-African Americans > 60 (> 60)
[2020-06-06] MEDS: Furosemide 40 MG TABLET PO SCH ×2 (08:08→16:35)
[2020-06-06] MEDS: allopurinoL 100 MG TABLET PO SCH (08:08)
[2020-06-06] MEDS: Metoprolol XL (24 HR) Succ 50 MG TAB.ER.24H PO SCH (08:09)
[2020-06-06] MEDS: Cholecalciferol (D-3) 1,000 UNIT (25MCG) TABLET PO SCH ×2 (08:09→20:29)
[2020-06-06] MEDS: Nystatin POWDER 30 GM BOTTLE TP SCH ×2 (08:12→20:30)
[2020-06-06] MEDS: Clotrimazole 1% CRM 15 GM TUBE TP SCH ×2 (08:12→20:30)
[2020-06-06] MEDS: Tiotropium 10 INH DOSE IH SCH (10:00)
[2020-06-06] MEDS: Budesonide/Formoterol 80/4.5 1 PUFF INH IH SCH ×2 (10:01→20:58)
[2020-06-06] MEDS: *HR* HYDROcodone/Acet 7.5/325 mg TABLET PO PRN (14:01)
[2020-06-07] MEDS: *HR* HYDROcodone/Acet 7.5/325 mg TABLET PO PRN ×2 (00:59→21:11)
[2020-06-07] MEDS: allopurinoL 100 MG TABLET PO SCH (08:29)
[2020-06-07] MEDS: Furosemide 40 MG TABLET PO SCH ×2 (08:29→16:45)
[2020-06-07] MEDS: Cholecalciferol (D-3) 1,000 UNIT (25MCG) TABLET PO SCH ×2 (08:29→21:06)
[2020-06-07] MEDS: Metoprolol XL (24 HR) Succ 50 MG TAB.ER.24H PO SCH (08:29)
[2020-06-07] MEDS: Tiotropium 10 INH DOSE IH SCH (08:38)
[2020-06-07] MEDS: Budesonide/Formoterol 80/4.5 1 PUFF INH IH SCH ×2 (08:38→21:47)
[2020-06-07] MEDS: Clotrimazole 1% CRM 15 GM TUBE TP SCH ×2 (09:18→21:07)
[2020-06-07] MEDS: Nystatin POWDER 30 GM BOTTLE TP SCH ×2 (09:18→21:07)
[2020-06-08] MEDS: Artificial Tears SOLN 15 ML BOTTLE BOTH EYES PRN ×2 (03:41→09:11)
[2020-06-08] MEDS: *HR* HYDROcodone/Acet 7.5/325 mg TABLET PO PRN ×2 (03:45→19:49)
[2020-06-08] MEDS: Budesonide/Formoterol 80/4.5 1 PUFF INH IH SCH ×2 (07:57→21:54)
[2020-06-08] MEDS: Tiotropium 10 INH DOSE IH SCH (07:57)
[2020-06-08] MEDS: Metoprolol XL (24 HR) Succ 50 MG TAB.ER.24H PO SCH (08:25)
[2020-06-08] MEDS: Cholecalciferol (D-3) 1,000 UNIT (25MCG) TABLET PO SCH ×2 (08:25→19:49)
[2020-06-08] MEDS: allopurinoL 100 MG TABLET PO SCH (08:25)
[2020-06-08] MEDS: Furosemide 40 MG TABLET PO SCH ×2 (08:25→16:43)
[2020-06-08] MEDS: Clotrimazole 1% CRM 15 GM TUBE TP SCH ×2 (08:27→19:50)
[2020-06-08] MEDS: Nystatin POWDER 30 GM BOTTLE TP SCH ×2 (08:27→19:50)
[2020-06-09 07:18] LABS: Basophils # 0.1 K/mcL (0.0-0.2); Basophils % 0.5 %; Eosinophils # 0.3 K/mcL (0.0-0.6); Eosinophils % 2.2 %; Hematocrit 49.7 % (35.3-44.9); Hemoglobin 15.3 g/dL (11.5-15.4); Immature Granulocytes % 0.4 % (0-4); Lymphocytes # 2.6 K/mcL (0.6-4.6); Lymphocytes % 21.1 %; Mean Corpuscular HGB Conc 30.8 g/dL (31.6-35.5); Mean Corpuscular Hemoglobin 28.5 pg (28.0-33.3); Mean Corpuscular Volume 92.7 fL (83.0-100.0); Mean Platelet Volume 12.3 fL (9.4-12.4); Monocytes # 0.8 K/mcL (0.0-1.3); Monocytes % 6.5 %; Neutrophils # 8.5 K/mcL (1.6-8.9); Platelet Count 173 K/mcL (140-400); Red Blood Count 5.36 M/mcL (3.82-4.97); Red Cell Distribution Width 15.8 % (11.5-14.5); Segmented Neutrophils % 69.3 %; White Blood Count 12.3 K/mcL (4.3-11.1)
[2020-06-09 07:34] LABS: BUN/Creatinine Ratio 27 (6-26); Blood Urea Nitrogen 14 mg/dL (8-23); Calcium 9.1 mg/dL (8.6-10.3); Carbon Dioxide 37 mEq/L (23-29); Chloride 99 mEq/L (98-107); Glucose 96 mg/dL (70-105); Osmolality,Calculated 294 (280-300); Sodium 142 mEq/L (136-145); eGFR For African Americans > 60 (> 60); eGFR For Non-African Americans > 60 (> 60)
[2020-06-09] MEDS: Tiotropium 10 INH DOSE IH SCH (08:14)
[2020-06-09] MEDS: Budesonide/Formoterol 80/4.5 1 PUFF INH IH SCH (08:14)
[2020-06-09] MEDS: allopurinoL 100 MG TABLET PO SCH (08:41)
[2020-06-09] MEDS: Furosemide 40 MG TABLET PO SCH (08:41)
[2020-06-09] MEDS: Cholecalciferol (D-3) 1,000 UNIT (25MCG) TABLET PO SCH (08:41)
[2020-06-09] MEDS: Metoprolol XL (24 HR) Succ 50 MG TAB.ER.24H PO SCH (08:41)
[2020-06-09] MEDS: Clotrimazole 1% CRM 15 GM TUBE TP SCH (08:42)
[2020-06-09] MEDS: Nystatin POWDER 30 GM BOTTLE TP SCH (08:43)
[2020-06-09] MEDS ORDERED: FLU Vac QV 20-21 (6Month+)/PF 0.5 ML SYRINGE IM ONE (15:47)
[2020-06-10 07:50] VITALS: BP 116/67
== END 2020-06-09 17:54 | disposition home health service (06) | DRG 189 ==
LOC: INPPIK 15:22
PROVIDERS: ADMIT Family Medicine; ATTEND Family Medicine

== ENCOUNTER 2020-07-09 12:02 | Inpatient (IN) ==
[2020-07-09] MEDS ORDERED: Vancomycin 1,250 MG in D5% in Water 250 ML IVPB ONE (12:08)
[2020-07-09 12:30] LABS: Basophils # 0.1 K/mcL (0.0-0.2); Basophils % 0.5 %; Eosinophils # 0.1 K/mcL (0.0-0.6); Eosinophils % 0.6 %; Hematocrit 50.7 % (35.3-44.9); Hemoglobin 15.5 g/dL (11.5-15.4); Immature Granulocytes % 0.3 % (0-4); Lymphocytes # 1.7 K/mcL (0.6-4.6); Lymphocytes % 15.9 %; Mean Corpuscular HGB Conc 30.6 g/dL (31.6-35.5); Mean Corpuscular Hemoglobin 29.1 pg (28.0-33.3); Mean Corpuscular Volume 95.1 fL (83.0-100.0); Monocytes # 0.6 K/mcL (0.0-1.3); Monocytes % 5.3 %; Neutrophils # 8.2 K/mcL (1.6-8.9); Platelet Count 204 K/mcL (140-400); Red Blood Count 5.33 M/mcL (3.82-4.97); Red Cell Distribution Width 16.5 % (11.5-14.5); Segmented Neutrophils % 77.4 %; White Blood Count 10.5 K/mcL (4.3-11.1)
[2020-07-09 12:43] LABS: INR 1.2; Prothrombin Time 13.4 Seconds (9.4-12.1)
[2020-07-09 12:45] LABS: Activated Partial Thrombo Time 35.7 Seconds (26.0-36.0)
[2020-07-09 12:59] LABS: Alanine Aminotransferase 4 Units/L (7-52); Albumin 3.6 g/dL (3.5-5.7); Alkaline Phosphatase 75 Units/L (34-104); Aspartate Amino Transferase 11 Units/L (13-39); BUN/Creatinine Ratio 13 (6-26); Bilirubin,Total 0.7 mg/dL (0.3-1.0); Blood Urea Nitrogen 10 mg/dL (8-23); Calcium 9.2 mg/dL (8.6-10.3); Carbon Dioxide 40 mEq/L (23-29); Chloride 94 mEq/L (98-107); Globulin 3.5 g/dL (2.4-3.5); Glucose 100 mg/dL (70-105); Osmolality,Calculated 289 (280-300); Potassium 3.6 mEq/L (3.5-5.1); Sodium 140 mEq/L (136-145); Total Protein 7.1 g/dL (6.4-8.9); eGFR For African Americans > 60 (> 60); eGFR For Non-African Americans > 60 (> 60)
[2020-07-09] MEDS ORDERED: Naloxone 0.4 MG/ML INJ IVP PRN (13:19)
[2020-07-09] MEDS ORDERED: Acetaminophen 325 MG TABLET PO PRN (13:19)
[2020-07-09] MEDS ORDERED: Ondansetron ODT 4 MG TAB.RAPDIS SL PRN (13:19)
[2020-07-09] MEDS ORDERED: *HR* HYDROcodone/Acet 5/325 mg TABLET PO PRN (13:19)
[2020-07-09] MEDS: 0.9 % Sodium Chloride 1,000 ML IVC SCH (14:31)
[2020-07-09] MEDS: Piperacillin/Tazobactam 3.375 GM in 0.9 % Sodium Chloride Mini Bag 100 ML IVPB SCH ×2 (16:45→23:44)
[2020-07-09] MEDS ORDERED: 0.9 % Sodium Chloride 1,000 ML IV ONE (16:57)
[2020-07-09] MEDS ORDERED: Artificial Tears SOLN 15 ML BOTTLE BOTH EYES PRN (17:51)
[2020-07-09] MEDS: Budesonide/Formoterol 80/4.5 1 PUFF INH IH SCH (19:39)
[2020-07-09] MEDS ORDERED: Ringers Solution, Lactated 1,000 ML IVC ONE (19:41)
[2020-07-09 21:00] LABS: Bilirubin,Urine Negative (Negative); Blood,Urine Negative (Negative); Clarity,Urine Clear (Clear); Color,Urine Yellow (Yellow); Glucose,Urine (UA) Normal (Normal); Ketones,Urine Negative (Negative); Leukocyte Esterase,Urine Small (Negative); Nitrite,Urine Negative (Negative); Protein,Urine Negative (Neg-Trace); Specific Gravity,Urine 1.015 (1.010-1.025); Urobilinogen,Urine Normal (Normal)
[2020-07-09 21:28] LABS: WBC,Urine 30-50 per hpf (0-3)
[2020-07-09] MEDS: Nystatin POWDER 30 GM BOTTLE TP SCH (22:23)
[2020-07-09] MEDS: Cholecalciferol (D-3) 1,000 UNIT (25MCG) TABLET PO SCH (22:23)
[2020-07-10] MEDS ORDERED: *HR* Metoprolol 5 MG/5 ML VIAL IVP ONE (04:27)
[2020-07-10] MEDS ORDERED: *HR* Enoxaparin 40 MG/0.4 ML SYRINGE SQ SCH (06:00)
[2020-07-10 07:10] LABS: Basophils % 0.5 %; Eosinophils # 0.1 K/mcL (0.0-0.6); Eosinophils % 0.6 %; Hematocrit 47.5 % (35.3-44.9); Hemoglobin 14.4 g/dL (11.5-15.4); Immature Granulocytes % 0.5 % (0-4); Lymphocytes # 1.5 K/mcL (0.6-4.6); Mean Corpuscular HGB Conc 30.3 g/dL (31.6-35.5); Mean Corpuscular Hemoglobin 29.3 pg (28.0-33.3); Mean Corpuscular Volume 96.5 fL (83.0-100.0); Mean Platelet Volume 11.6 fL (9.4-12.4); Monocytes # 0.7 K/mcL (0.0-1.3); Monocytes % 7.8 %; Neutrophils # 6.1 K/mcL (1.6-8.9); Platelet Count 167 K/mcL (140-400); Red Blood Count 4.92 M/mcL (3.82-4.97); Red Cell Distribution Width 16.7 % (11.5-14.5); Segmented Neutrophils % 72.6 %; White Blood Count 8.4 K/mcL (4.3-11.1)
[2020-07-10 07:32] LABS: Alanine Aminotransferase 3 Units/L (7-52); Albumin 3.2 g/dL (3.5-5.7); Alkaline Phosphatase 65 Units/L (34-104); Aspartate Amino Transferase 10 Units/L (13-39); BUN/Creatinine Ratio 10 (6-26); Bilirubin,Total 0.6 mg/dL (0.3-1.0); Blood Urea Nitrogen 7 mg/dL (8-23); Calcium 8.6 mg/dL (8.6-10.3); Carbon Dioxide 36 mEq/L (23-29); Chloride 98 mEq/L (98-107); Globulin 3.1 g/dL (2.4-3.5); Glucose 117 mg/dL (70-105); Magnesium 1.9 mg/dL (1.6-2.6); Osmolality,Calculated 289 (280-300); Potassium 3.7 mEq/L (3.5-5.1); Sodium 140 mEq/L (136-145); Total Protein 6.3 g/dL (6.4-8.9); eGFR For African Americans > 60 (> 60); eGFR For Non-African Americans > 60 (> 60)
[2020-07-10] MEDS: Budesonide/Formoterol 80/4.5 1 PUFF INH IH SCH (08:10)
[2020-07-10] MEDS: Piperacillin/Tazobactam 3.375 GM in 0.9 % Sodium Chloride Mini Bag 100 ML IVPB SCH (08:44)
[2020-07-10] MEDS: Cholecalciferol (D-3) 1,000 UNIT (25MCG) TABLET PO SCH (08:46)
[2020-07-10] MEDS: Nystatin POWDER 30 GM BOTTLE TP SCH (08:47)
[2020-07-10] MEDS: 0.9 % Sodium Chloride 1,000 ML IVC SCH (08:50)
[2020-07-10] MEDS ORDERED: allopurinoL 100 MG TABLET PO SCH (09:00)
[2020-07-10] MEDS ORDERED: Metoprolol XL (24 HR) Succ 50 MG TAB.ER.24H PO SCH (09:00)
[2020-07-10] MEDS ORDERED: Tiotropium 10 INH DOSE IH SCH (10:00)
[2020-07-10 13:06] VITALS: BP 100/58
[2020-07-11] MEDS ORDERED: Furosemide 40 MG TABLET PO SCH (09:00)
== END 2020-07-10 13:13 | disposition short-term general hospital (02) | DRG 871 ==
LOC: INPPIK 12:02 → EMEROOPIK 12:02 → INPPIK 16:09
PROVIDERS: ADMIT Internal Medicine; ATTEND Internal Medicine

== ENCOUNTER 2020-07-28 18:03 | Inpatient (IN) ==
[2020-07-28] MEDS ORDERED: Ondansetron ODT 4 MG TAB.RAPDIS SL PRN (18:12)
[2020-07-28] MEDS: Cholecalciferol (D-3) 1,000 UNIT (25MCG) TABLET PO SCH (22:53)
[2020-07-29] MEDS: Nystatin POWDER 30 GM BOTTLE TP PRN ×2 (03:56→11:16)
[2020-07-29 07:31] LABS: Basophils % 0.3 %; Eosinophils # 0.2 K/mcL (0.0-0.6); Eosinophils % 1.6 %; Hematocrit 46.4 % (35.3-44.9); Hemoglobin 14.6 g/dL (11.5-15.4); Immature Granulocytes % 0.3 % (0-4); Lymphocytes # 2.8 K/mcL (0.6-4.6); Lymphocytes % 24.8 %; Mean Corpuscular HGB Conc 31.5 g/dL (31.6-35.5); Mean Corpuscular Hemoglobin 29.3 pg (28.0-33.3); Monocytes # 0.7 K/mcL (0.0-1.3); Monocytes % 6.4 %; Neutrophils # 7.4 K/mcL (1.6-8.9); Platelet Count 130 K/mcL (140-400); Red Blood Count 4.99 M/mcL (3.82-4.97); Red Cell Distribution Width 16.6 % (11.5-14.5); Segmented Neutrophils % 66.6 %; White Blood Count 11.1 K/mcL (4.3-11.1)
[2020-07-29 07:48] LABS: BUN/Creatinine Ratio 14 (6-26); Blood Urea Nitrogen 9 mg/dL (8-23); Calcium 8.6 mg/dL (8.6-10.3); Carbon Dioxide 32 mEq/L (23-29); Chloride 102 mEq/L (98-107); Glucose 101 mg/dL (70-105); Osmolality,Calculated 289 (280-300); Potassium 3.7 mEq/L (3.5-5.1); Sodium 140 mEq/L (136-145); eGFR For African Americans > 60 (> 60); eGFR For Non-African Americans > 60 (> 60)
[2020-07-29] MEDS: Cholecalciferol (D-3) 1,000 UNIT (25MCG) TABLET PO SCH ×2 (09:51→11:39)
[2020-07-29] MEDS: Furosemide 40 MG TABLET PO SCH (09:51)
[2020-07-29] MEDS: Metoprolol XL (24 HR) Succ 50 MG TAB.ER.24H PO SCH (09:51)
[2020-07-29] MEDS: allopurinoL 100 MG TABLET PO SCH (09:51)
[2020-07-29] MEDS: Aspirin 81 MG TAB.CHEW PO SCH (09:51)
[2020-07-29] MEDS: Multivit/Ca/Min/Fe/FA 1 TAB TABLET PO SCH (09:51)
[2020-07-29] MEDS: Tiotropium 10 INH DOSE IH SCH (10:12)
[2020-07-29] MEDS: Budesonide/Formoterol 160/4.5 1 PUFF INH IH SCH (10:13)
[2020-07-29] MEDS ORDERED: Ringers Solution, Lactated 1,000 ML IVC SCH (17:15)
[2020-07-29] MEDS ORDERED: Ipratropium/Albuterol Neb 3 ML IH PRN (17:25)
[2020-07-29] MEDS: *HR* Heparin 5,000 UNIT/ML VIAL SQ SCH (17:47)
[2020-07-29] MEDS: *HR* HYDROcodone/Acet 7.5/325 mg TABLET PO PRN (20:57)
[2020-07-30] MEDS: *HR* Heparin 5,000 UNIT/ML VIAL SQ SCH ×2 (05:39→18:24)
[2020-07-30 07:20] LABS: Basophils % 0.4 %; Eosinophils # 0.2 K/mcL (0.0-0.6); Eosinophils % 1.8 %; Hematocrit 46.9 % (35.3-44.9); Hemoglobin 14.4 g/dL (11.5-15.4); Immature Granulocytes % 0.4 % (0-4); Lymphocytes # 2.4 K/mcL (0.6-4.6); Lymphocytes % 24.3 %; Mean Corpuscular HGB Conc 30.7 g/dL (31.6-35.5); Mean Corpuscular Hemoglobin 29.2 pg (28.0-33.3); Mean Corpuscular Volume 95.1 fL (83.0-100.0); Mean Platelet Volume 12.5 fL (9.4-12.4); Monocytes # 0.6 K/mcL (0.0-1.3); Monocytes % 5.8 %; Neutrophils # 6.7 K/mcL (1.6-8.9); Platelet Count 127 K/mcL (140-400); Red Blood Count 4.93 M/mcL (3.82-4.97); Red Cell Distribution Width 16.4 % (11.5-14.5); Segmented Neutrophils % 67.3 %
[2020-07-30 07:56] LABS: Alanine Aminotransferase 14 Units/L (7-52); Albumin 3.2 g/dL (3.5-5.7); Albumin/Globulin Ratio 1.1 (1.1-2.2); Alkaline Phosphatase 65 Units/L (34-104); Aspartate Amino Transferase 14 Units/L (13-39); BUN/Creatinine Ratio 13 (6-26); Bilirubin,Total 0.7 mg/dL (0.3-1.0); Blood Urea Nitrogen 9 mg/dL (8-23); Calcium 8.3 mg/dL (8.6-10.3); Carbon Dioxide 35 mEq/L (23-29); Chloride 101 mEq/L (98-107); Globulin 2.8 g/dL (2.4-3.5); Glucose 139 mg/dL (70-105); Osmolality,Calculated 297 (280-300); Sodium 143 mEq/L (136-145); eGFR For African Americans > 60 (> 60); eGFR For Non-African Americans > 60 (> 60)
[2020-07-30] MEDS: Cholecalciferol (D-3) 1,000 UNIT (25MCG) TABLET PO SCH (08:17)
[2020-07-30] MEDS: Aspirin 81 MG TAB.CHEW PO SCH (08:17)
[2020-07-30] MEDS: Multivit/Ca/Min/Fe/FA 1 TAB TABLET PO SCH (08:17)
[2020-07-30] MEDS: Metoprolol XL (24 HR) Succ 50 MG TAB.ER.24H PO SCH (08:18)
[2020-07-30] MEDS: allopurinoL 100 MG TABLET PO SCH (08:18)
[2020-07-30] MEDS: Furosemide 40 MG TABLET PO SCH (08:18)
[2020-07-30] MEDS: Tiotropium 10 INH DOSE IH SCH (10:22)
[2020-07-30] MEDS: Budesonide/Formoterol 160/4.5 1 PUFF INH IH SCH (10:23)
[2020-07-30] MEDS: *HR* HYDROcodone/Acet 7.5/325 mg TABLET PO PRN (21:29)
[2020-07-31] MEDS: Acetaminophen 325 MG TABLET PO PRN (03:36)
[2020-07-31] MEDS: *HR* Heparin 5,000 UNIT/ML VIAL SQ SCH ×2 (05:59→16:47)
[2020-07-31 07:18] LABS: Basophils # 0.1 K/mcL (0.0-0.2); Basophils % 0.6 %; Eosinophils # 0.2 K/mcL (0.0-0.6); Eosinophils % 2.1 %; Hematocrit 48.6 % (35.3-44.9); Hemoglobin 15.2 g/dL (11.5-15.4); Immature Granulocytes % 0.5 % (0-4); Lymphocytes # 2.7 K/mcL (0.6-4.6); Lymphocytes % 25.6 %; Mean Corpuscular HGB Conc 31.3 g/dL (31.6-35.5); Mean Corpuscular Hemoglobin 29.8 pg (28.0-33.3); Mean Corpuscular Volume 95.3 fL (83.0-100.0); Mean Platelet Volume 12.6 fL (9.4-12.4); Monocytes # 0.7 K/mcL (0.0-1.3); Monocytes % 6.5 %; Neutrophils # 6.9 K/mcL (1.6-8.9); Platelet Count 124 K/mcL (140-400); Red Cell Distribution Width 16.1 % (11.5-14.5); Segmented Neutrophils % 64.7 %; White Blood Count 10.7 K/mcL (4.3-11.1)
[2020-07-31 07:35] LABS: Alanine Aminotransferase 14 Units/L (7-52); Albumin 3.4 g/dL (3.5-5.7); Albumin/Globulin Ratio 1.1 (1.1-2.2); Alkaline Phosphatase 67 Units/L (34-104); Aspartate Amino Transferase 15 Units/L (13-39); BUN/Creatinine Ratio 14 (6-26); Bilirubin,Total 0.7 mg/dL (0.3-1.0); Blood Urea Nitrogen 8 mg/dL (8-23); Calcium 8.7 mg/dL (8.6-10.3); Carbon Dioxide 38 mEq/L (23-29); Chloride 100 mEq/L (98-107); Glucose 106 mg/dL (70-105); Osmolality,Calculated 293 (280-300); Potassium 3.5 mEq/L (3.5-5.1); Sodium 142 mEq/L (136-145); Total Protein 6.4 g/dL (6.4-8.9); eGFR For African Americans > 60 (> 60); eGFR For Non-African Americans > 60 (> 60)
[2020-07-31] MEDS: Cholecalciferol (D-3) 1,000 UNIT (25MCG) TABLET PO SCH (07:47)
[2020-07-31] MEDS: Aspirin 81 MG TAB.CHEW PO SCH (07:47)
[2020-07-31] MEDS: Multivit/Ca/Min/Fe/FA 1 TAB TABLET PO SCH (07:48)
[2020-07-31] MEDS: allopurinoL 100 MG TABLET PO SCH (07:48)
[2020-07-31] MEDS ORDERED: Ringers Solution, Lactated 500 ML IVC ONE (09:19)
[2020-07-31] MEDS: Metoprolol XL (24 HR) Succ 50 MG TAB.ER.24H PO ONE ×2 (09:22→09:42)
[2020-07-31] MEDS: Budesonide/Formoterol 160/4.5 1 PUFF INH IH SCH (10:26)
[2020-07-31] MEDS: Tiotropium 10 INH DOSE IH SCH (10:27)
[2020-07-31 18:32] LABS: Bilirubin,Urine Negative (Negative); Blood,Urine Negative (Negative); Clarity,Urine Clear (Clear); Color,Urine Yellow (Yellow); Glucose,Urine (UA) Normal (Normal); Ketones,Urine Negative (Negative); Leukocyte Esterase,Urine Negative (Negative); Nitrite,Urine Negative (Negative); PH,Urine 5.5 pH Units (5.0-8.0); Protein,Urine Negative (Neg-Trace); Specific Gravity,Urine >= 1.030 (1.010-1.025); Urobilinogen,Urine Normal (Normal)
[2020-08-01] MEDS: *HR* Heparin 5,000 UNIT/ML VIAL SQ SCH ×2 (05:40→17:21)
[2020-08-01] MEDS: Acetaminophen 325 MG TABLET PO PRN (05:53)
[2020-08-01] MEDS: Furosemide 40 MG TABLET PO SCH (08:45)
[2020-08-01] MEDS: Cholecalciferol (D-3) 1,000 UNIT (25MCG) TABLET PO SCH (08:45)
[2020-08-01] MEDS: Multivit/Ca/Min/Fe/FA 1 TAB TABLET PO SCH (08:46)
[2020-08-01] MEDS: Aspirin 81 MG TAB.CHEW PO SCH (08:46)
[2020-08-01] MEDS: allopurinoL 100 MG TABLET PO SCH (08:46)
[2020-08-01] MEDS: Metoprolol XL (24 HR) Succ 50 MG TAB.ER.24H PO SCH (08:46)
[2020-08-01] MEDS: Budesonide/Formoterol 160/4.5 1 PUFF INH IH SCH (10:33)
[2020-08-01] MEDS: Tiotropium 10 INH DOSE IH SCH (10:35)
[2020-08-02 08:05] LABS: Basophils % 0.4 %; Eosinophils # 0.2 K/mcL (0.0-0.6); Eosinophils % 2.3 %; Hematocrit 48.1 % (35.3-44.9); Hemoglobin 14.8 g/dL (11.5-15.4); Immature Granulocytes % 0.3 % (0-4); Lymphocytes # 2.3 K/mcL (0.6-4.6); Lymphocytes % 23.1 %; Mean Corpuscular HGB Conc 30.8 g/dL (31.6-35.5); Mean Corpuscular Hemoglobin 29.4 pg (28.0-33.3); Mean Corpuscular Volume 95.6 fL (83.0-100.0); Mean Platelet Volume 12.9 fL (9.4-12.4); Monocytes # 0.6 K/mcL (0.0-1.3); Monocytes % 5.5 %; Neutrophils # 6.9 K/mcL (1.6-8.9); Platelet Count 122 K/mcL (140-400); Red Blood Count 5.03 M/mcL (3.82-4.97); Segmented Neutrophils % 68.4 %; White Blood Count 10.1 K/mcL (4.3-11.1)
[2020-08-02] MEDS: Metoprolol XL (24 HR) Succ 50 MG TAB.ER.24H PO SCH (08:18)
[2020-08-02] MEDS: allopurinoL 100 MG TABLET PO SCH (08:18)
[2020-08-02] MEDS: Multivit/Ca/Min/Fe/FA 1 TAB TABLET PO SCH (08:19)
[2020-08-02] MEDS: Cholecalciferol (D-3) 1,000 UNIT (25MCG) TABLET PO SCH (08:19)
[2020-08-02] MEDS: Aspirin 81 MG TAB.CHEW PO SCH (08:19)
[2020-08-02] MEDS: Furosemide 40 MG TABLET PO SCH (08:19)
[2020-08-02 08:21] LABS: Alanine Aminotransferase 13 Units/L (7-52); Albumin 3.3 g/dL (3.5-5.7); Albumin/Globulin Ratio 1.2 (1.1-2.2); Alkaline Phosphatase 69 Units/L (34-104); Aspartate Amino Transferase 17 Units/L (13-39); BUN/Creatinine Ratio 23 (6-26); Bilirubin,Total 0.7 mg/dL (0.3-1.0); Blood Urea Nitrogen 12 mg/dL (8-23); Calcium 8.7 mg/dL (8.6-10.3); Carbon Dioxide 39 mEq/L (23-29); Chloride 97 mEq/L (98-107); Globulin 2.8 g/dL (2.4-3.5); Glucose 105 mg/dL (70-105); Osmolality,Calculated 294 (280-300); Potassium 3.7 mEq/L (3.5-5.1); Sodium 142 mEq/L (136-145); Total Protein 6.1 g/dL (6.4-8.9); eGFR For African Americans > 60 (> 60); eGFR For Non-African Americans > 60 (> 60)
[2020-08-02] MEDS: Budesonide/Formoterol 160/4.5 1 PUFF INH IH SCH (09:28)
[2020-08-02] MEDS: Tiotropium 10 INH DOSE IH SCH (09:28)
[2020-08-03] MEDS: Aspirin 81 MG TAB.CHEW PO SCH (08:26)
[2020-08-03] MEDS: allopurinoL 100 MG TABLET PO SCH (08:26)
[2020-08-03] MEDS: Furosemide 40 MG TABLET PO SCH (08:26)
[2020-08-03] MEDS: Multivit/Ca/Min/Fe/FA 1 TAB TABLET PO SCH (08:26)
[2020-08-03] MEDS: Metoprolol XL (24 HR) Succ 50 MG TAB.ER.24H PO SCH (08:26)
[2020-08-03] MEDS: Cholecalciferol (D-3) 1,000 UNIT (25MCG) TABLET PO SCH (08:26)
[2020-08-03] MEDS: Budesonide/Formoterol 160/4.5 1 PUFF INH IH SCH (09:04)
[2020-08-03] MEDS: Tiotropium 10 INH DOSE IH SCH (09:04)
[2020-08-03] MEDS: *HR* HYDROcodone/Acet 7.5/325 mg TABLET PO PRN (20:00)
[2020-08-03] MEDS: Nystatin POWDER 30 GM BOTTLE TP PRN (20:02)
[2020-08-04] MEDS: allopurinoL 100 MG TABLET PO SCH (08:37)
[2020-08-04] MEDS: Cholecalciferol (D-3) 1,000 UNIT (25MCG) TABLET PO SCH (08:38)
[2020-08-04] MEDS: Multivit/Ca/Min/Fe/FA 1 TAB TABLET PO SCH (08:38)
[2020-08-04] MEDS: Furosemide 40 MG TABLET PO SCH (08:38)
[2020-08-04] MEDS: Aspirin 81 MG TAB.CHEW PO SCH (08:38)
[2020-08-04] MEDS: Metoprolol XL (24 HR) Succ 50 MG TAB.ER.24H PO SCH (08:39)
[2020-08-04] MEDS: Budesonide/Formoterol 160/4.5 1 PUFF INH IH SCH (08:56)
[2020-08-04] MEDS: Tiotropium 10 INH DOSE IH SCH (08:56)
[2020-08-04] MEDS: *HR* Heparin 5,000 UNIT/ML VIAL SQ SCH ×2 (10:00→17:00)
[2020-08-05] MEDS: *HR* Heparin 5,000 UNIT/ML VIAL SQ SCH ×2 (05:12→18:22)
[2020-08-05] MEDS: Furosemide 40 MG TABLET PO SCH (09:00)
[2020-08-05] MEDS: Aspirin 81 MG TAB.CHEW PO SCH (09:01)
[2020-08-05] MEDS: Multivit/Ca/Min/Fe/FA 1 TAB TABLET PO SCH (09:02)
[2020-08-05] MEDS: Cholecalciferol (D-3) 1,000 UNIT (25MCG) TABLET PO SCH (09:02)
[2020-08-05] MEDS: allopurinoL 100 MG TABLET PO SCH (09:03)
[2020-08-05] MEDS: Metoprolol XL (24 HR) Succ 50 MG TAB.ER.24H PO SCH (09:03)
[2020-08-05] MEDS: Tiotropium 10 INH DOSE IH SCH (11:11)
[2020-08-05] MEDS: Budesonide/Formoterol 160/4.5 1 PUFF INH IH SCH (11:11)
[2020-08-06] MEDS: *HR* HYDROcodone/Acet 7.5/325 mg TABLET PO PRN ×2 (05:35→21:05)
[2020-08-06] MEDS: *HR* Heparin 5,000 UNIT/ML VIAL SQ SCH ×2 (05:35→17:38)
[2020-08-06 07:05] LABS: Basophils # 0.1 K/mcL (0.0-0.2); Basophils % 0.5 %; Eosinophils # 0.3 K/mcL (0.0-0.6); Eosinophils % 2.5 %; Hematocrit 47.8 % (35.3-44.9); Hemoglobin 14.9 g/dL (11.5-15.4); Immature Granulocytes % 0.3 % (0-4); Lymphocytes % 29.2 %; Mean Corpuscular HGB Conc 31.2 g/dL (31.6-35.5); Mean Corpuscular Hemoglobin 29.4 pg (28.0-33.3); Mean Corpuscular Volume 94.3 fL (83.0-100.0); Mean Platelet Volume 12.3 fL (9.4-12.4); Monocytes # 0.5 K/mcL (0.0-1.3); Monocytes % 5.1 %; Neutrophils # 6.4 K/mcL (1.6-8.9); Platelet Count 155 K/mcL (140-400); Red Blood Count 5.07 M/mcL (3.82-4.97); Red Cell Distribution Width 15.9 % (11.5-14.5); Segmented Neutrophils % 62.4 %; White Blood Count 10.2 K/mcL (4.3-11.1)
[2020-08-06 07:20] LABS: Alanine Aminotransferase 17 Units/L (7-52); Albumin 3.3 g/dL (3.5-5.7); Albumin/Globulin Ratio 1.1 (1.1-2.2); Alkaline Phosphatase 71 Units/L (34-104); Aspartate Amino Transferase 19 Units/L (13-39); BUN/Creatinine Ratio 31 (6-26); Bilirubin,Total 0.6 mg/dL (0.3-1.0); Blood Urea Nitrogen 18 mg/dL (8-23); Carbon Dioxide 39 mEq/L (23-29); Chloride 98 mEq/L (98-107); Globulin 2.9 g/dL (2.4-3.5); Glucose 117 mg/dL (70-105); Osmolality,Calculated 301 (280-300); Potassium 3.6 mEq/L (3.5-5.1); Sodium 144 mEq/L (136-145); Total Protein 6.2 g/dL (6.4-8.9); eGFR For African Americans > 60 (> 60); eGFR For Non-African Americans > 60 (> 60)
[2020-08-06] MEDS: Cholecalciferol (D-3) 1,000 UNIT (25MCG) TABLET PO SCH (09:23)
[2020-08-06] MEDS: Aspirin 81 MG TAB.CHEW PO SCH (09:23)
[2020-08-06] MEDS: Metoprolol XL (24 HR) Succ 50 MG TAB.ER.24H PO SCH (09:24)
[2020-08-06] MEDS: Furosemide 40 MG TABLET PO SCH (09:24)
[2020-08-06] MEDS: allopurinoL 100 MG TABLET PO SCH (09:24)
[2020-08-06] MEDS: Multivit/Ca/Min/Fe/FA 1 TAB TABLET PO SCH (09:24)
[2020-08-06] MEDS: Tiotropium 10 INH DOSE IH SCH (10:32)
[2020-08-06] MEDS: Budesonide/Formoterol 160/4.5 1 PUFF INH IH SCH (10:33)
[2020-08-07] MEDS: *HR* Heparin 5,000 UNIT/ML VIAL SQ SCH ×2 (06:01→16:39)
[2020-08-07] MEDS: Cholecalciferol (D-3) 1,000 UNIT (25MCG) TABLET PO SCH (08:34)
[2020-08-07] MEDS: Aspirin 81 MG TAB.CHEW PO SCH (08:34)
[2020-08-07] MEDS: allopurinoL 100 MG TABLET PO SCH (08:34)
[2020-08-07] MEDS: Furosemide 40 MG TABLET PO SCH ×2 (08:34→08:38)
[2020-08-07] MEDS: Metoprolol XL (24 HR) Succ 50 MG TAB.ER.24H PO SCH (08:34)
[2020-08-07] MEDS: Multivit/Ca/Min/Fe/FA 1 TAB TABLET PO SCH (08:34)
[2020-08-07] MEDS: Budesonide/Formoterol 160/4.5 1 PUFF INH IH SCH (09:31)
[2020-08-07] MEDS: Tiotropium 10 INH DOSE IH SCH (09:31)
[2020-08-07] MEDS: *HR* HYDROcodone/Acet 7.5/325 mg TABLET PO PRN (21:54)
[2020-08-08] MEDS: *HR* Heparin 5,000 UNIT/ML VIAL SQ SCH ×2 (05:27→17:03)
[2020-08-08] MEDS: Cholecalciferol (D-3) 1,000 UNIT (25MCG) TABLET PO SCH (08:26)
[2020-08-08] MEDS: Furosemide 40 MG TABLET PO SCH (08:26)
[2020-08-08] MEDS: Aspirin 81 MG TAB.CHEW PO SCH (08:26)
[2020-08-08] MEDS: Metoprolol XL (24 HR) Succ 50 MG TAB.ER.24H PO SCH (08:26)
[2020-08-08] MEDS: Multivit/Ca/Min/Fe/FA 1 TAB TABLET PO SCH (08:26)
[2020-08-08] MEDS: allopurinoL 100 MG TABLET PO SCH (08:27)
[2020-08-08] MEDS: Tiotropium 10 INH DOSE IH SCH (09:49)
[2020-08-08] MEDS: Budesonide/Formoterol 160/4.5 1 PUFF INH IH SCH (09:50)
[2020-08-08] MEDS: *HR* HYDROcodone/Acet 7.5/325 mg TABLET PO PRN (18:58)
[2020-08-09] MEDS: Cholecalciferol (D-3) 1,000 UNIT (25MCG) TABLET PO SCH (10:42)
[2020-08-09] MEDS: Aspirin 81 MG TAB.CHEW PO SCH (10:42)
[2020-08-09] MEDS: allopurinoL 100 MG TABLET PO SCH (10:42)
[2020-08-09] MEDS: Multivit/Ca/Min/Fe/FA 1 TAB TABLET PO SCH (10:43)
[2020-08-09] MEDS: Furosemide 40 MG TABLET PO SCH (10:43)
[2020-08-09] MEDS: Metoprolol XL (24 HR) Succ 50 MG TAB.ER.24H PO SCH (10:43)
[2020-08-09] MEDS: Tiotropium 10 INH DOSE IH SCH (10:52)
[2020-08-09] MEDS: Budesonide/Formoterol 160/4.5 1 PUFF INH IH SCH (10:53)
[2020-08-09] MEDS: *HR* HYDROcodone/Acet 7.5/325 mg TABLET PO PRN (19:44)
[2020-08-10] MEDS: Metoprolol XL (24 HR) Succ 50 MG TAB.ER.24H PO SCH (09:47)
[2020-08-10] MEDS: *HR* HYDROcodone/Acet 7.5/325 mg TABLET PO PRN (09:47)
[2020-08-10] MEDS: allopurinoL 100 MG TABLET PO SCH (09:48)
[2020-08-10] MEDS: Aspirin 81 MG TAB.CHEW PO SCH (09:48)
[2020-08-10] MEDS: Multivit/Ca/Min/Fe/FA 1 TAB TABLET PO SCH (09:48)
[2020-08-10] MEDS: Furosemide 40 MG TABLET PO SCH (09:48)
[2020-08-10] MEDS: Cholecalciferol (D-3) 1,000 UNIT (25MCG) TABLET PO SCH (09:48)
[2020-08-10] MEDS: Budesonide/Formoterol 160/4.5 1 PUFF INH IH SCH (10:10)
[2020-08-10] MEDS: Tiotropium 10 INH DOSE IH SCH (10:10)
[2020-08-11] MEDS: Metoprolol XL (24 HR) Succ 50 MG TAB.ER.24H PO SCH (08:40)
[2020-08-11] MEDS: Multivit/Ca/Min/Fe/FA 1 TAB TABLET PO SCH (08:40)
[2020-08-11] MEDS: Aspirin 81 MG TAB.CHEW PO SCH (08:40)
[2020-08-11] MEDS: allopurinoL 100 MG TABLET PO SCH (08:40)
[2020-08-11] MEDS: Furosemide 40 MG TABLET PO SCH (08:40)
[2020-08-11] MEDS: Cholecalciferol (D-3) 1,000 UNIT (25MCG) TABLET PO SCH (08:40)
[2020-08-11 10:16] LABS: Basophils # 0.1 K/mcL (0.0-0.2); Basophils % 0.4 %; Eosinophils # 0.3 K/mcL (0.0-0.6); Eosinophils % 2.7 %; Hematocrit 49.5 % (35.3-44.9); Hemoglobin 15.2 g/dL (11.5-15.4); Immature Granulocytes % 0.4 % (0-4); Lymphocytes # 2.3 K/mcL (0.6-4.6); Lymphocytes % 20.4 %; Mean Corpuscular HGB Conc 30.7 g/dL (31.6-35.5); Mean Corpuscular Hemoglobin 29.3 pg (28.0-33.3); Mean Corpuscular Volume 95.6 fL (83.0-100.0); Mean Platelet Volume 11.3 fL (9.4-12.4); Monocytes # 0.5 K/mcL (0.0-1.3); Monocytes % 4.5 %; Neutrophils # 8.1 K/mcL (1.6-8.9); Platelet Count 193 K/mcL (140-400); Red Blood Count 5.18 M/mcL (3.82-4.97); Red Cell Distribution Width 15.4 % (11.5-14.5); Segmented Neutrophils % 71.6 %; White Blood Count 11.3 K/mcL (4.3-11.1)
[2020-08-11 10:57] LABS: Alanine Aminotransferase 27 Units/L (7-52); Albumin 3.6 g/dL (3.5-5.7); Albumin/Globulin Ratio 1.2 (1.1-2.2); Alkaline Phosphatase 79 Units/L (34-104); Aspartate Amino Transferase 28 Units/L (13-39); BUN/Creatinine Ratio 24 (6-26); Bilirubin,Total 0.7 mg/dL (0.3-1.0); Blood Urea Nitrogen 14 mg/dL (8-23); Calcium 9.2 mg/dL (8.6-10.3); Carbon Dioxide 38 mEq/L (23-29); Chloride 96 mEq/L (98-107); Globulin 3.1 g/dL (2.4-3.5); Glucose 198 mg/dL (70-105); Osmolality,Calculated 298 (280-300); Potassium 3.6 mEq/L (3.5-5.1); Sodium 141 mEq/L (136-145); Total Protein 6.7 g/dL (6.4-8.9); eGFR For African Americans > 60 (> 60); eGFR For Non-African Americans > 60 (> 60)
[2020-08-11] MEDS: Tiotropium 10 INH DOSE IH SCH (11:20)
[2020-08-11] MEDS: Budesonide/Formoterol 160/4.5 1 PUFF INH IH SCH (11:21)
[2020-08-11] MEDS: *HR* HYDROcodone/Acet 7.5/325 mg TABLET PO PRN (19:55)
[2020-08-12] MEDS: Budesonide/Formoterol 160/4.5 1 PUFF INH IH SCH (08:09)
[2020-08-12] MEDS: Tiotropium 10 INH DOSE IH SCH (08:09)
[2020-08-12] MEDS: allopurinoL 100 MG TABLET PO SCH (09:17)
[2020-08-12] MEDS: Aspirin 81 MG TAB.CHEW PO SCH (09:17)
[2020-08-12] MEDS: Multivit/Ca/Min/Fe/FA 1 TAB TABLET PO SCH (09:18)
[2020-08-12] MEDS: Metoprolol XL (24 HR) Succ 50 MG TAB.ER.24H PO SCH (09:18)
[2020-08-12] MEDS: Cholecalciferol (D-3) 1,000 UNIT (25MCG) TABLET PO SCH (09:18)
[2020-08-12] MEDS: *HR* HYDROcodone/Acet 7.5/325 mg TABLET PO PRN (21:44)
[2020-08-13 06:41] VITALS: BP 116/79
[2020-08-13] MEDS: Tiotropium 10 INH DOSE IH SCH (08:38)
[2020-08-13] MEDS: Budesonide/Formoterol 160/4.5 1 PUFF INH IH SCH (08:38)
[2020-08-13 09:13] LABS: Basophils % 0.4 %; Eosinophils # 0.2 K/mcL (0.0-0.6); Hematocrit 44.4 % (35.3-44.9); Hemoglobin 13.7 g/dL (11.5-15.4); Immature Granulocytes % 0.4 % (0-4); Lymphocytes # 2.3 K/mcL (0.6-4.6); Lymphocytes % 24.1 %; Mean Corpuscular HGB Conc 30.9 g/dL (31.6-35.5); Mean Corpuscular Hemoglobin 29.8 pg (28.0-33.3); Mean Corpuscular Volume 96.5 fL (83.0-100.0); Mean Platelet Volume 11.8 fL (9.4-12.4); Monocytes # 0.6 K/mcL (0.0-1.3); Monocytes % 6.6 %; Neutrophils # 6.4 K/mcL (1.6-8.9); Platelet Count 167 K/mcL (140-400); Red Cell Distribution Width 15.5 % (11.5-14.5); Segmented Neutrophils % 66.5 %; White Blood Count 9.7 K/mcL (4.3-11.1)
[2020-08-13 09:39] LABS: Alanine Aminotransferase 26 Units/L (7-52); Albumin 3.3 g/dL (3.5-5.7); Albumin/Globulin Ratio 1.2 (1.1-2.2); Alkaline Phosphatase 79 Units/L (34-104); Aspartate Amino Transferase 26 Units/L (13-39); BUN/Creatinine Ratio 22 (6-26); Bilirubin,Total 0.6 mg/dL (0.3-1.0); Blood Urea Nitrogen 11 mg/dL (8-23); Calcium 8.7 mg/dL (8.6-10.3); Carbon Dioxide 37 mEq/L (23-29); Chloride 100 mEq/L (98-107); Globulin 2.7 g/dL (2.4-3.5); Glucose 180 mg/dL (70-105); Osmolality,Calculated 298 (280-300); Potassium 3.8 mEq/L (3.5-5.1); Sodium 142 mEq/L (136-145); eGFR For African Americans > 60 (> 60); eGFR For Non-African Americans > 60 (> 60)
[2020-08-13] MEDS: Aspirin 81 MG TAB.CHEW PO SCH (10:00)
[2020-08-13] MEDS: Cholecalciferol (D-3) 1,000 UNIT (25MCG) TABLET PO SCH (10:00)
[2020-08-13] MEDS: Multivit/Ca/Min/Fe/FA 1 TAB TABLET PO SCH (10:01)
[2020-08-13] MEDS: allopurinoL 100 MG TABLET PO SCH (10:01)
[2020-08-13] MEDS: Metoprolol XL (24 HR) Succ 50 MG TAB.ER.24H PO SCH (10:01)
[2020-08-13] MEDS: Furosemide 40 MG TABLET PO SCH (10:01)
== END 2020-08-13 14:30 | disposition home health service (06) | DRG 945 ==
LOC: INPPIK 20:40
PROVIDERS: ADMIT Family Medicine; ATTEND Family Medicine

== ENCOUNTER 2020-08-17 01:28 | Observation (INO) ==
[2020-08-17] MEDS ORDERED: Saline Nasal Spray 44 ML BOTTLE NS PRN (02:55)
[2020-08-17] MEDS ORDERED: Mag Hydrox/Al Hydrox/Simeth 30 ML UDC PO PRN (02:55)
[2020-08-17] MEDS ORDERED: Artificial Tears SOLN 15 ML BOTTLE BOTH EYES PRN (02:55)
[2020-08-17] MEDS ORDERED: Melatonin 3 MG TABLET PO PRN (02:55)
[2020-08-17] MEDS ORDERED: [UNRECOGNIZED DRUG - OTHER] OP PRN (02:55)
[2020-08-17] MEDS ORDERED: Naloxone 0.4 MG/ML INJ IVP PRN (02:55)
[2020-08-17] MEDS ORDERED: MOM Conc 10 ML UD.LIQ PO PRN (02:55)
[2020-08-17] MEDS ORDERED: Acetaminophen 325 MG TABLET PO PRN (02:55)
[2020-08-17] MEDS ORDERED: Ondansetron ODT 4 MG TAB.RAPDIS SL PRN (02:55)
[2020-08-17] MEDS ORDERED: GLYCERIN OP PRN (02:55)
[2020-08-17] MEDS ORDERED: Nystatin POWDER 30 GM BOTTLE TP PRN (02:55)
[2020-08-17] MEDS ORDERED: Albuterol 2.5 MG/3 ML NEBULIZER IH PRN (02:55)
[2020-08-17] MEDS ORDERED: PROPYLENE GLYCOL OP PRN (02:55)
[2020-08-17] MEDS: Ipratropium/Albuterol Neb 3 ML IH SCH ×4 (03:45→21:12)
[2020-08-17 08:42] LABS: Basophils # 0.1 K/mcL (0.0-0.2); Basophils % 0.4 %; Eosinophils # 0.2 K/mcL (0.0-0.6); Eosinophils % 1.4 %; Hematocrit 43.2 % (35.3-44.9); Hemoglobin 13.7 g/dL (11.5-15.4); Immature Granulocytes % 0.4 % (0-4); Lymphocytes # 2.7 K/mcL (0.6-4.6); Lymphocytes % 21.9 %; Mean Corpuscular HGB Conc 31.7 g/dL (31.6-35.5); Mean Corpuscular Hemoglobin 29.7 pg (28.0-33.3); Mean Corpuscular Volume 93.7 fL (83.0-100.0); Mean Platelet Volume 11.6 fL (9.4-12.4); Monocytes # 0.9 K/mcL (0.0-1.3); Monocytes % 7.2 %; Platelet Count 192 K/mcL (140-400); Red Blood Count 4.61 M/mcL (3.82-4.97); Red Cell Distribution Width 15.9 % (11.5-14.5); Segmented Neutrophils % 68.7 %; White Blood Count 12.3 K/mcL (4.3-11.1)
[2020-08-17 08:44] LABS: Neutrophils # 8.5 K/mcL (1.6-8.9)
[2020-08-17] MEDS: Cholecalciferol (D-3) 1,000 UNIT (25MCG) TABLET PO SCH ×2 (08:46→19:45)
[2020-08-17] MEDS: Metoprolol XL (24 HR) Succ 50 MG TAB.ER.24H PO SCH (08:46)
[2020-08-17] MEDS: Aspirin 81 MG TAB.CHEW PO SCH (08:46)
[2020-08-17] MEDS: Multivit/Ca/Min/Fe/FA 1 TAB TABLET PO SCH (08:46)
[2020-08-17] MEDS: allopurinoL 100 MG TABLET PO SCH (08:46)
[2020-08-17] MEDS: Furosemide 40 MG TABLET PO SCH (08:46)
[2020-08-17] MEDS: Budesonide/Formoterol 80/4.5 1 PUFF INH IH SCH ×2 (09:24→21:12)
[2020-08-17 09:46] LABS: BUN/Creatinine Ratio 13 (6-26); Blood Urea Nitrogen 7 mg/dL (8-23); Calcium 8.8 mg/dL (8.6-10.3); Carbon Dioxide 32 mEq/L (23-29); Chloride 100 mEq/L (98-107); Glucose 117 mg/dL (70-105); Osmolality,Calculated 289 (280-300); Potassium 3.7 mEq/L (3.5-5.1); Sodium 140 mEq/L (136-145); eGFR For African Americans > 60 (> 60); eGFR For Non-African Americans > 60 (> 60)
[2020-08-17] MEDS ORDERED: Furosemide 20 MG/2 ML VIAL IVP ONE (12:02)
[2020-08-17] MEDS: Nicotine 14 MG PATCH.TD24 TD SCH (12:46)
[2020-08-18] MEDS: Ipratropium/Albuterol Neb 3 ML IH SCH ×3 (04:23→15:18)
[2020-08-18] MEDS: Aspirin 81 MG TAB.CHEW PO SCH (08:19)
[2020-08-18] MEDS: Cholecalciferol (D-3) 1,000 UNIT (25MCG) TABLET PO SCH (08:19)
[2020-08-18] MEDS: Nicotine 14 MG PATCH.TD24 TD SCH (08:19)
[2020-08-18] MEDS: Multivit/Ca/Min/Fe/FA 1 TAB TABLET PO SCH (08:19)
[2020-08-18] MEDS: Furosemide 40 MG TABLET PO SCH (08:19)
[2020-08-18] MEDS: Metoprolol XL (24 HR) Succ 50 MG TAB.ER.24H PO SCH (08:20)
[2020-08-18] MEDS: allopurinoL 100 MG TABLET PO SCH (08:20)
[2020-08-18 08:45] LABS: Basophils # 0.1 K/mcL (0.0-0.2); Basophils % 0.4 %; Eosinophils # 0.2 K/mcL (0.0-0.6); Eosinophils % 1.2 %; Hematocrit 43.2 % (35.3-44.9); Hemoglobin 13.4 g/dL (11.5-15.4); Immature Granulocytes % 0.4 % (0-4); Lymphocytes # 3.2 K/mcL (0.6-4.6); Lymphocytes % 25.2 %; Mean Corpuscular Hemoglobin 29.5 pg (28.0-33.3); Mean Corpuscular Volume 94.9 fL (83.0-100.0); Mean Platelet Volume 12.5 fL (9.4-12.4); Monocytes # 0.9 K/mcL (0.0-1.3); Neutrophils # 8.4 K/mcL (1.6-8.9); Platelet Count 204 K/mcL (140-400); Red Blood Count 4.55 M/mcL (3.82-4.97); Red Cell Distribution Width 15.8 % (11.5-14.5); Segmented Neutrophils % 65.8 %; White Blood Count 12.8 K/mcL (4.3-11.1)
[2020-08-18 09:30] LABS: BUN/Creatinine Ratio 16 (6-26); Blood Urea Nitrogen 8 mg/dL (8-23); Calcium 8.6 mg/dL (8.6-10.3); Carbon Dioxide 36 mEq/L (23-29); Chloride 101 mEq/L (98-107); Glucose 115 mg/dL (70-105); Osmolality,Calculated 297 (280-300); Potassium 3.6 mEq/L (3.5-5.1); Sodium 144 mEq/L (136-145); eGFR For African Americans > 60 (> 60); eGFR For Non-African Americans > 60 (> 60)
[2020-08-18] MEDS: Budesonide/Formoterol 80/4.5 1 PUFF INH IH SCH (10:03)
[2020-08-18 19:44] VITALS: BP 108/80
== END 2020-08-18 19:34 ==
LOC: EMEROOPIK 01:28 → INPPIK 01:28
PROVIDERS: ADMIT Internal Medicine; ATTEND Family Medicine